=== PATIENT | female | born 1940 | race Caucasian/White ===

== ENCOUNTER 2018-05-11 18:08 | Inpatient (IN) ==
[2018-05-18] MEDS ORDERED: *HR* Dextrose 50 % in Water (Syg) 50 ML SYRINGE IVP PRN (18:44)
[2018-05-18] MEDS ORDERED: D5% in Water 1,000 ML IVC PRN (18:44)
[2018-05-18] MEDS ORDERED: Dextrose Gel 15 GM/37.5 ML TUBE PO PRN ×2 (18:44)
[2018-05-18] MEDS: Insulin LISPRO 300 UNITS/3 ML VIAL SQ SCH (20:52)
[2018-05-18] MEDS: Acetaminophen 325 MG TABLET PO PRN (21:09)
[2018-05-18] MEDS: *HR* Heparin 5,000 UNIT/ML VIAL SQ SCH (21:10)
[2018-05-19 05:53] LABS: Basophils % 0.4 %; Eosinophils # 0.2 K/mcL (0.0-0.6); Eosinophils % 2.9 %; Hematocrit 35.3 % (35.3-44.9); Hemoglobin 11.4 g/dL (11.5-15.4); Immature Granulocytes % 0.4 % (0-4); Lymphocytes # 1.4 K/mcL (0.6-4.6); Lymphocytes % 19.4 %; Mean Corpuscular HGB Conc 32.3 g/dL (31.6-35.5); Mean Corpuscular Volume 95.9 fL (83.0-100.0); Mean Platelet Volume 9.3 fL (9.4-12.4); Monocytes # 0.6 K/mcL (0.0-1.3); Monocytes % 8.7 %; Neutrophils # 4.8 K/mcL (1.6-8.9); Platelet Count 356 K/mcL (140-400); Red Blood Count 3.68 M/mcL (3.82-4.97); Red Cell Distribution Width 14.8 % (11.5-14.5); Segmented Neutrophils % 68.2 %
[2018-05-19 06:10] LABS: BUN/Creatinine Ratio 17 (6-26); Blood Urea Nitrogen 13 mg/dL (8-23); Calcium 8.9 mg/dL (8.6-10.3); Carbon Dioxide 30 mEq/L (23-29); Chloride 106 mEq/L (98-107); Glucose 130 mg/dL (70-105); Osmolality,Calculated 296 (280-300); Potassium 4.1 mEq/L (3.5-5.1); Sodium 142 mEq/L (136-145); eGFR For Non-African Americans > 60 (> 60)
[2018-05-19] MEDS: Acetaminophen 325 MG TABLET PO PRN ×2 (06:38→23:00)
[2018-05-19] MEDS: *HR* Heparin 5,000 UNIT/ML VIAL SQ SCH ×3 (06:38→21:18)
[2018-05-19] MEDS: Insulin LISPRO 300 UNITS/3 ML VIAL SQ SCH ×4 (08:09→20:24)
[2018-05-19] MEDS: Cholecalciferol (D-3) 1,000 UNIT TABLET PO SCH (08:12)
[2018-05-19] MEDS: FLUoxetine 20 MG CAPSULE PO SCH (08:12)
[2018-05-19] MEDS: Multivit/Ca/Min/Fe/FA 1 TAB TABLET PO SCH (08:12)
[2018-05-19] MEDS: Diltiazem CD (24hr) 180 MG CAPSULE PO SCH (08:12)
[2018-05-19] MEDS: Aspirin Enteric Coated 325 MG Tablet PO SCH (08:12)
[2018-05-19] MEDS: Leptospermum Honey Gel 44 ML TUBE TP SCH (08:13)
[2018-05-19] MEDS: Nitrofurantoin (BID) 100 MG CAPSULE PO SCH (17:07)
[2018-05-19 17:54] LABS: Bilirubin,Urine Negative (Negative); Blood,Urine Negative (Negative); Clarity,Urine Clear (Clear); Color,Urine Yellow (Yellow); Glucose,Urine (UA) Normal (Normal); Ketones,Urine Negative (Negative); Leukocyte Esterase,Urine Negative (Negative); Nitrite,Urine Negative (Negative); PH,Urine 6.5 pH Units (5.0-8.0); Protein,Urine Negative (Neg-Trace); Specific Gravity,Urine 1.015 (1.010-1.025); Urobilinogen,Urine Normal (Normal)
[2018-05-19] MEDS: Ascorbic Acid 500 MG TABLET PO SCH (20:23)
[2018-05-19] MEDS: Lactobacillus 1 EACH CAP.SPRINK PO SCH (20:24)
[2018-05-20] MEDS: *HR* Heparin 5,000 UNIT/ML VIAL SQ SCH ×3 (05:41→22:00)
[2018-05-20] MEDS: Leptospermum Honey Gel 44 ML TUBE TP SCH (05:41)
[2018-05-20] MEDS: FLUoxetine 20 MG CAPSULE PO SCH (07:44)
[2018-05-20] MEDS: Cholecalciferol (D-3) 1,000 UNIT TABLET PO SCH (07:44)
[2018-05-20] MEDS: Diltiazem CD (24hr) 180 MG CAPSULE PO SCH (07:44)
[2018-05-20] MEDS: Insulin LISPRO 300 UNITS/3 ML VIAL SQ SCH ×4 (07:44→20:25)
[2018-05-20] MEDS: Lactobacillus 1 EACH CAP.SPRINK PO SCH ×2 (07:44→20:04)
[2018-05-20] MEDS: Ascorbic Acid 500 MG TABLET PO SCH ×2 (07:45→20:05)
[2018-05-20] MEDS: Aspirin Enteric Coated 325 MG Tablet PO SCH (07:45)
[2018-05-20] MEDS: Multivit/Ca/Min/Fe/FA 1 TAB TABLET PO SCH (07:45)
[2018-05-20] MEDS: Nitrofurantoin (BID) 100 MG CAPSULE PO SCH ×2 (07:45→17:18)
--- NOTE | 2018-05-20 13:55 | Internal Med History&Physical ---
Date of Encounter: 05/20/18 Time of Encounter: 12:15 Assessment and Plan (1) Cerebrovascular accident (CVA) Current visit: Yes Status: Acute Patient underwent treatment at [facility] including TPA She is scheduled to restart her Xarelto in a few days She is deconditioned and needs rehabilitation for evaluation is pending Had previous noncompliance with Xarelto due to depression, depression is currently being treated. Qualifiers: CVA mechanism: embolism Laterality of affected vessel: right Qualified Code(s): I63.411 - Cerebral infarction due to embolism of right middle cerebral artery (2) Atrial fibrillation Current visit: Yes Status: Chronic Patient has had atrial fibrillation for several years. She is currently rate controlled and stable. She is managed with calcium channel mariella. An chronic anticoagulation Qualifiers: Atrial fibrillation type: chronic Qualified Code(s): I48.2 - Chronic atrial fibrillation (3) Depressed Current visit: Yes Status: Acute Patient is currently stable with her depression she was started on treatment [facility] she denies problems with these medications. She states she still feels apathetic but denies suicidal ideation or thoughts of harm to self or others. She is agreeable to taking her routine medications and participating in therapy. Qualifiers: Depression Type: major depressive disorder Major depression recurrence: unspecified whether recurrent Active/Remission status: currently active Major depression episode severity: unspecified Qualified Code(s): F32.9 - Major depressive disorder, single episode, unspecified Internal Medicine - H&P: HPI Admitted From: Intrahospital Transfer History of present illness: Ms. Guerra is a 77 year old female who transferred here for rehabilitation after deconditioning. She comes from [facility]. She was treated at [facility] for acute right-sided CVA, she reports she had complex treatment. Her states she had TPA and thrombus removal. She ultimately had some improvement but has residual left-sided weakness and minor speech impairment, general fatigue and weakness, and vertigo. She has a long history of atrial fibrillation and hypertension, she reports that this was diagnosed about 7 years ago after a knee surgery. She states that she has been on XARELTO since her diagnosis. Her and family report that she stopped taking it prior to the CVA perhaps for a week or 2 maybe longer. They state this was due to her being depressed and stating she would not take any of her medications. She denies that she had suicidal ideation. She denied problems with xarelto or problems obtaining medication. She has supportive . While at [facility] she also suffered a left ankle fracture which was repaired with hardware. She states this is feeling okay and denies significant pain from the area. She has a history of remote right-sided breast cancer with remote right mastectomy. Exam General she is older than stated age fair eye contact fatigued hypokinetic HEENT dry oral mucosa no lesions noted Neck supple no bruit Heart irregular no definite murmur Lungs clear bilaterally Abdomen full soft nontender bowel sounds present Extremities left ankle incision intact no drainage no significant edema bilat erally Neurologic left-sided weakness Past Med Surg Social Fam HX - Past Medical History Medical history: atrial fibrillation, cancer, diabetes, other Additional medical history: breast ca Psychiatric history: anxiety, depression - Past Surgical History Additional surgical history: shoulder replacement, hyst, left knee, right leg plate, ORIF left ankle, cataract surgery - Social History Smoking Status: Never smoker Smokeless Tobacco Status: No Alcohol use: none Drug use: none - Family History Father Living Status: Hx Family Cancer: Yes Mother Living Status: Hx Family Cardiac Disorders: Yes Internal Medicine - H&P: Meds Atorvastatin [Lipitor] 80 mg PO HS 04/05/15 [History] Diltiazem HCl [Diltiazem 24Hr Cd] 360 mg PO DAILY 04/05/15 [History] FLUoxetine HCl [PROzac] 40 mg PO DAILY 04/05/15 [History] Rivaroxaban [Xarelto] 20 mg PO DAILY 04/05/15 [History] Vit C/E/Zn/Coppr/Lutein/Zeaxan [Preservision Areds 2 Softgel] 1 cap PO DAILY 05/18/18 [History] Allergy/AdvReac Type Severity Reaction Status Date / Time metformin AdvReac Gastrointestinal Verified 05/18/18 19:23 Upset oxycodone [From Percocet] AdvReac Nausea Verified 10/06/14 10:03 All Systems PM: A 10-system review of systems was performed and is negative for pertinent findings except as documented above in the HPI. - Constitutional Vitals: Temp Pulse Resp BP Pulse Ox 98.5 F 86 16 120/60 95 05/20/18 09:00 05/20/18 09:00 05/20/18 09:00 05/20/18 09:00 05/20/18 09:00 Internal Med - H&P Results - Labs CBC & Chem 7: 05/19/18 05:20 05/19/18 05:20 Labs: Urine 05/19/18 Range/Units 17:45 Urine Color Yellow (Yellow) Urine Clarity Clear (Clear) Urine pH 6.5 (5.0-8.0) pH Units Ur Specific [place] 1.015 (1.010-1.025) Urine Protein Negative (Neg-Trace) mg/dL Urine Glucose (UA) Normal (Normal) mg/dL
--- NOTE | 2018-05-20 14:07 | Internal Med Progress Note ---
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 artery (2) Atrial fibrillation Current Visit: Yes Status: Chronic Qualifiers: Atrial fibrillation type: chronic Qualified Code(s): I48.2 - Chronic atrial fibrillation (3) Depressed Current Visit: Yes Status: Acute Qualifiers: Depression Type: major depressive disorder Major depression recurrence: unspecified whether recurrent Active/Remission status: currently active Major depression episode severity: unspecified Qualified Code(s): F32.9 - Ma rosamaria depressive disorder, single episode, unspecified - Subjective Interval history: Assessment and Plan (1) Cerebrovascular accident (CVA) Current visit: Yes Status: Acute Patient underwent treatment at [facility] including TPA She is scheduled to restart her Xarelto in a few days She is deconditioned and needs rehabilitation for evaluation is pending Had previous noncompliance with Xarelto due to depression, depression is currently being treated. Recent left ankle fracture . Qualifiers: CVA mechanism: embolism Laterality of affected vessel: right Qualified Code(s): I63.411 - Cerebral infarction due to embolism of right middle cerebral artery (2) Atrial fibrillation Current visit: Yes Status: Chronic Patient has had atrial fibrillation for several years. Diagnosed after routine knee surgery. She is currently rate controlled and stable. She is managed with calcium channel mariella. An chronic anticoagulation Qualifiers: Atrial fibrillation type: chronic Qualified Code(s): I48.2 - Chronic atrial fibrillation (3) Depressed Current visit: Yes Status: Acute Patient is currently stable with her depression she was started on treatment [facility] she denies problems with these medications. She states she still feels apathetic but denies suicidal ideation or thoughts of harm to self or others. She is agreeable to taking her routine medications and participating in therapy. Qualifiers: Depression Type: major depressive disorder Major depression recurrence: unspecified whether recurrent Active/Remission status: currently active Major depression episode severity: unspecified Qualified Code(s): F32.9 - Major depressive disorder, single episode, unspecified Interval HX Ms. Guerra is a 77 year old female who transferred here for rehabilitation after deconditioning. She comes from [facility]. She was treated at [facility] for acute right-sided CVA, she reports she had complex treatment. Her states she had TPA and thrombus removal. She ultimately had some improvement but has residual left-sided weakness and minor speech impairment, general fatigue and weakness, and vertigo. She has a long history of atrial fibrillation and hypertension, she reports that this was diagnosed about 7 years ago after a knee surgery. She states that she has been on XARELTO since her diagnosis. Her and family report that she stopped taking it prior to the CVA perhaps for a week or 2 maybe longer. They state this was due to her being depressed and stating she would not take any of her medications. She denies that she had suicidal ideation. She denied problems with xarelto or problems obtaining medication. She has supportive . While at [facility] she also suffered a left ankle fracture which was repaired with hardware. She states this is feeling okay and denies significant pain from the area. She has a history of remote right-sided breast cancer with remote right mastectomy. Today she is in improved mood. She complains of fatigue but eating more. She had a UTI and will finish antbx in 2 days. Denies abd pain. Exam General she is older than stated age fair eye contact fatigued HEENT dry oral mucosa no lesions noted Neck supple no bruit Heart irregular no definite murmur Lungs clear bilaterally Abdomen full soft nontender bowel sounds present Extremities left ankle incision intact no drainage no significant edema bilaterally Neurologic left-sided weakness - Constitutional Vitals: Temp Pulse Resp BP Pulse Ox 98.5 F 86 16 120/60 95 05/20/18 09:00 05/20/18 09:00 05/20/18 09:00 05/20/18 09:00 05/20/18 09:00 Internal Medicine: Result - Labs CBC & Chem 7: 05/19/18 05:20 05/19/18 05:20 Labs: Urine 05/19/18 Range/Units 17:45 Urine Color Yellow (Yellow) Urine Clarity Clear (Clear) Urine pH 6.5 (5.0-8.0) pH Units Ur Specific [place] 1.015 (1.010-1.025) Urine Protein Negative (Neg-Trace) mg/dL Urine Glucose (UA) Normal (Normal) mg/dL Consult Discharge Plan - Plan Referrals: Carmelo Boudreaux MD [Primary Care Provider] -
[2018-05-20] MEDS: Acetaminophen 325 MG TABLET PO PRN (20:04)
[2018-05-21] MEDS: *HR* Heparin 5,000 UNIT/ML VIAL SQ SCH (05:53)
[2018-05-21 06:59] LABS: Basophils % 0.4 %; Eosinophils # 0.2 K/mcL (0.0-0.6); Eosinophils % 2.6 %; Hematocrit 35.2 % (35.3-44.9); Hemoglobin 11.6 g/dL (11.5-15.4); Immature Granulocytes % 0.4 % (0-4); Lymphocytes # 1.6 K/mcL (0.6-4.6); Lymphocytes % 23.1 %; Mean Corpuscular Volume 94.1 fL (83.0-100.0); Monocytes # 0.6 K/mcL (0.0-1.3); Monocytes % 8.4 %; Neutrophils # 4.5 K/mcL (1.6-8.9); Platelet Count 389 K/mcL (140-400); Red Blood Count 3.74 M/mcL (3.82-4.97); Red Cell Distribution Width 14.8 % (11.5-14.5); Segmented Neutrophils % 65.1 %
[2018-05-21 07:06] LABS: INR 1.2; Prothrombin Time 13.7 Seconds (9.4-12.1)
[2018-05-21 07:12] LABS: BUN/Creatinine Ratio 14 (6-26); Blood Urea Nitrogen 10 mg/dL (8-23); Calcium 8.8 mg/dL (8.6-10.3); Carbon Dioxide 27 mEq/L (23-29); Chloride 104 mEq/L (98-107); Glucose 129 mg/dL (70-105); Osmolality,Calculated 291 (280-300); Potassium 3.7 mEq/L (3.5-5.1); Sodium 140 mEq/L (136-145); eGFR For Non-African Americans > 60 (> 60)
[2018-05-21] MEDS: Acetaminophen 325 MG TABLET PO PRN ×2 (08:19→18:14)
[2018-05-21] MEDS: Aspirin Enteric Coated 325 MG Tablet PO SCH (08:19)
[2018-05-21] MEDS: Ascorbic Acid 500 MG TABLET PO SCH ×2 (08:19→21:34)
[2018-05-21] MEDS: FLUoxetine 20 MG CAPSULE PO SCH (08:20)
[2018-05-21] MEDS: Nitrofurantoin (BID) 100 MG CAPSULE PO SCH ×2 (08:20→18:15)
[2018-05-21] MEDS: Cholecalciferol (D-3) 1,000 UNIT TABLET PO SCH (08:20)
[2018-05-21] MEDS: Multivit/Ca/Min/Fe/FA 1 TAB TABLET PO SCH (08:20)
[2018-05-21] MEDS: Lactobacillus 1 EACH CAP.SPRINK PO SCH ×2 (08:21→21:34)
[2018-05-21] MEDS: Diltiazem CD (24hr) 180 MG CAPSULE PO SCH (08:21)
[2018-05-21] MEDS: Insulin LISPRO 300 UNITS/3 ML VIAL SQ SCH ×4 (08:21→21:35)
[2018-05-21] MEDS: Leptospermum Honey Gel 44 ML TUBE TP SCH (08:21)
--- NOTE | 2018-05-21 11:42 | Internal Med Progress Note ---
Addendum entered and electronically signed by Paulino Ybarra MD 05/21/18 11:56: I have personally performed a face to face evaluation on this patient. I have r eviewed and agree with the care plan. History and Exam by me shows: Patient is without complaint. She asks how soon she can go home. I informed her that we would have multidisciplinary meeting around noon today. I also told her that the stroke recovery is complicated by her ankle fracture. She denies problems. She knows that she is to restart Xarelto today. She denies other problems. House and bladder are functioning well. 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 Discussed care with other providers and/or nursing. Patient has no complaint of chest discomfort, dyspnea, orthopnea, palpitations, nausea or vomiting, constipation or diarrhea, other changes in bowel habits, difficulty with urination, rash or itching, or other new complaints, except as mentioned above. Review of systems is otherwise negative. Examination: (Except as mentioned above): General: In no apparent distress. Alert and oriented 3. Nondiaphoretic. Head: Atraumatic and normocephalic. Respiratory: No use of accessory muscles. Lungs are clear throughout. Normal airflow. Cardiovascular: Irregularly irregular consistent with atrial fibrillation, without murmur appreciated. Abdomen: Bowel sounds are normal. No hepatosplenomegaly mass or tenderness appreciated. Obese and therefore difficult to palpate deeply. Extremities: No cyanosis clubbing or edema. Left ankle is in brace and not undressed but there is no cord or calf tenderness. Skin: Warm and non-diaphoretic with no new lesions noted. Original Note: Date of Encounter: 05/21/18 Time of Encounter: 11:40 - Assessment and plan (1) Cerebrovascular accident (CVA) Current Visit: Yes Status: Acute Assessment and plan: Patient was recent history of a right ischemic CVA with left hemiparesis. Patient's muscle strength left extremities show mild weakness with left extremities 4+/5 and right extremities have 5/5. Patient noted to have slight slurred speech no issues with dysphagia. Patient to continue with physical therapy and mobilize. Vital signs stable. We will continue with current medications, to include heparin. 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 Surgical incision currently is covered with a Tigre wrap which is dry and intact. No edema noted. Distal CV checks normal. Left leg walking boot with patient able to have TDWB. Pain is been normal with patient stating current medications have been effective. We will continue with current therapy Qualifiers: Encounter type: subsequent encounter Fracture healing: with routine healing Qualified Code(s): S82.892D - Other fracture of left lower leg, subsequent encounter for closed fracture with routine healing (3) Atrial fibrillation Current Visit: Yes Status: Chronic Assessment and plan: No acute issues during her stay here. Heart rate remains irregular with ventricular rate controlled less than 100. Vital signs are stable. Patient denies any palpitations or chest discomforts. We will continue on current medications Qualifiers: Atrial fibrillation type: chronic Qualified Code(s): I48.2 - Chronic atrial fibrillation (4) Diabetes Current Visit: Yes Status: Acute Assessment and plan: No acute issues. Patient's glucose has been fairly well-controlled with most readings less than 170. We will continue with sliding scale coverage continue to monitor Qualifiers: Diabetes mellitus type: type 2 Diabetes mellitus exterminator termite insulin use: without exterminator termite use Diabetes mellitus complication status: with unspecified complications Qualified Code(s): E11.8 - Type 2 diabetes mellitus with unspecified complications - Time Spent With Patient less than 15 minutes - Subjective Interval history: Patient appears relaxed and currently denies any discomforts or shortness of breath. Agents states she has not had any pain to her left ankle surgical site. Patient continues with left hemiparesis and states that she feels her strength has improved since her initial incident Patient's daughter is at bedside states the patient had some delay to her recovery due to elevated heart rate. Patient currently denies any chest discomforts or palpitations. - Constitutional Vitals: Temp Pulse Resp BP Pulse Ox 98.0 F 93 16 116/82 92 05/21/18 07:26 05/21/18 07:26 05/21/18 07:26 05/21/18 07:26 05/21/18 07:26 General appearance: Present: A&O X 3, pleasant - Head Head exam: Present: atraumatic, normocephalic Additional comments: Patient noted to have a very slight slur to her speech - Eye Eye exam: Present: PERRL, conjuntiva pink, sclera anicteric Pupils: Present: PERRL - Neck Neck exam general surgery: Present: supple, trachea midline. Absent: lymphadenopathy - Respiratory Respiratory exam: Present: CTAB. Absent: accessory muscle use, rales, rhonchi, wheezes - Cardiovascular Cardiovascular exam: Present: irregular rhythm, RRR, +S1, +S2. Absent: diastolic murmur, gallop, rubs, systolic murmur Additional comments: Heart rate remains irregular with controlled rate less than 100 bpm - GI/Abdominal GI/Abdominal exam: Present: normal bowel sounds, soft, no peritoneal signs. Absent: distended, tenderness - Extremities Exam Extremities exam: Present: warm, radial pulses palpable and symmetrical. Absent: calf tenderness, cyanotic, pedal edema Additional comments: Left ankle with Tigre wrap dressing in place 2 surgical site. No edema noted. Left ankle also and a walking boot and currently is elevated while in bed - Neurological Exam Neurological exam: Present: CN II-XII intact, oriented X3, speech deficit. Absent: pronater drift, facial droop Additional comments: Patient with slight slurred speech but denies any difficulty with swallow. Tongue remains midline with no facial droop. Left hemiparesis with left extremities 4+/5 and right extremities at 5/5. - Skin Skin exam: Present: dry, intact Internal Medicine: Result - Labs CBC & Chem 7: 05/21/18 06:35 05/21/18 06:35 Labs: Short CBC 05/21/18 Range/Units 06:35 WBC 6.9 (4.3-11.1) K/mcL Hgb 11.6 (11.5-15.4) g/dL Hct 35.2 L (35.3-44.9) % Plt Count 389 (140-400) K/mcL Neutrophils # 4.5 (1.6-8.9) K/mcL BMP 05/21/18 06:35 Sodium 140 Potassium 3.7 Chloride 104 Carbon Dioxide 27 BUN 10 Creatinine 0.69 Glucose 129 H Calcium 8.8 - ABG Interpretation ABG results: PT/INR, D-dimer PT 13.7 Seconds (9.4-12.1) H 05/21/18 06:35 Consult Discharge Plan - Plan Referrals: Carmelo Boudreaux MD [Primary Care Provider] -
[2018-05-21] MEDS: *HR* Rivaroxaban 10 MG TABLET PO SCH (18:15)
[2018-05-22] MEDS: Insulin LISPRO 300 UNITS/3 ML VIAL SQ SCH ×3 (07:27→17:05)
[2018-05-22] MEDS: Cholecalciferol (D-3) 1,000 UNIT TABLET PO SCH (07:43)
[2018-05-22] MEDS: FLUoxetine 20 MG CAPSULE PO SCH (07:44)
[2018-05-22] MEDS: Diltiazem CD (24hr) 180 MG CAPSULE PO SCH (07:44)
[2018-05-22] MEDS: Lactobacillus 1 EACH CAP.SPRINK PO SCH ×2 (07:44→19:41)
[2018-05-22] MEDS: Multivit/Ca/Min/Fe/FA 1 TAB TABLET PO SCH (07:44)
[2018-05-22] MEDS: Leptospermum Honey Gel 44 ML TUBE TP SCH (07:44)
[2018-05-22] MEDS: Ascorbic Acid 500 MG TABLET PO SCH ×2 (07:44→19:43)
[2018-05-22] MEDS: Aspirin Enteric Coated 325 MG Tablet PO SCH (07:44)
--- NOTE | 2018-05-22 11:57 | Internal Med Progress Note ---
Addendum entered and electronically signed by Paulino Ybarra MD 05/22/18 12:37: I have personally performed a face to face evaluation on this patient. I have r eviewed and agree with the care plan. History and Exam by me shows: Patient is concerned about left knee swelling. However, she has no swelling of lower extremity, increase in pain, etc. The exception to this is and her boot was slightly tight last night across the metatarsals but this is typical because of her high arch. She denies other problems or complaints. Discussed care with other providers and/or nursing. Patient has no complaint of chest discomfort, dyspnea, orthopnea, palpitations, nausea or vomiting, constipation or diarrhea, other changes in bowel habits, difficulty with urination, rash or itching, or other new complaints, except as mentioned above. Review of systems is otherwise negative. Examination: (Except as mentioned above): General: In no apparent distress. Alert and oriented 3. Nondiaphoretic. Head: Atraumatic and normocephalic. Respiratory: No use of accessory muscles. Lungs are clear throughout. Normal airflow. Cardiovascular: Irregularly irregular consistent with atrial fibrillation, without murmur appreciated. Abdomen: Bowel sounds are normal. No hepatosplenomegaly mass or tenderness appreciated. Obese and therefore difficult to palpate deeply. Extremities: No cyanosis clubbing or edema, with the exception of slightly increased swelling around the left knee. There is no cord or calf tenderness. The patient has no posterior swelling, to exam. She does have a history of surgical repair of a Adam's cyst at the left knee, remotely.. Skin: Warm and non-diaphoretic with no new lesions noted. We will keep the leg elevated and apply ice. She is already on anticoagulation. She continues to improve. We have asked that she be seen by psychology, tomorrow. She is proceeding well with therapies. Original Note: Date of Encounter: 05/22/18 Time of Encounter: 11:55 - Assessment and plan (1) Cerebrovascular accident (CVA) Current Visit: Yes Status: Acute Assessment and plan: No new neurological deficits. Continue PT and OT. Will follow progress. Follow up with neurologist as scheduled. 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 Pain controlled. Weight bearing as tolerated. Follow up with surgeon as scheduled. Qualifiers: Encounter type: subsequent encounter Fracture healing: with routine healing Qualified Code(s): S82.892D - Other fracture of left lower leg, subsequent encounter for closed fracture with routine healing (3) Diabetes Current Visit: Yes Status: Acute Assessment and plan: Controlled. Monitor fingerstick blood sugars. Will adjust coverage was sliding scale. Qualifiers: Diabetes mellitus type: type 2 Diabetes mellitus terminal operator insulin use: without correction use Diabetes mellitus complication status: with unspecified complications Qualified Code(s): E11.8 - Type 2 diabetes mellitus with unspec ified complications (4) Atrial fibrillation Current Visit: Yes Status: Chronic Assessment and plan: Rate and rhythm controlled. Continues xarelto. Qualifiers: Atrial fibrillation type: chronic Qualified Code(s): I48.2 - Chronic atrial fibrillation - Time Spent With Patient less than 15 minutes - Subjective Interval history: participating well with therapy. denies new neurological deficits, nausea, vomitting or diarrhea. last BM with am. denies fever, chill, SOB or chest pain. daughter at bedside. ambulated with walker with therapy. walking boot on left. left knee slightly swollen, no pain. - Constitutional Vitals: Temp Pulse Resp BP Pulse Ox 97.6 F 108 16 110/69 93 05/22/18 07:27 05/22/18 07:27 05/22/18 07:27 05/22/18 07:27 05/22/18 07:27 General appearance: Present: cooperative, A&O X 3, pleasant, no acute distress, answers questions appropriately - Head Head exam: Present: atraumatic, normocephalic - Eye Eye exam: Present: PERRL, conjuntiva pink, sclera anicteric Pupils: Present: PERRL - Neck Neck exam general surgery: Present: supple, trachea midline. Absent: lymphadenopathy - Respiratory Respiratory exam: Present: CTAB. Absent: accessory muscle use, rales, rhonchi, wheezes - Cardiovascular Cardiovascular exam: Present: RRR, +S1, +S2. Absent: diastolic murmur, gallop, rubs, systolic murmur - GI/Abdominal GI/Abdominal exam: Present: normal bowel sounds, soft, no peritoneal signs. Absent: distended, tenderness - Extremities Exam Extremities exam: Present: warm, radial pulses palpable and symmetrical. Absent: calf tenderness, cyanotic, pedal edema Additional comments: left knee slight edema, no pain with palpation. left ankle in walking boot. left upper and lower extremity strength 4/5. - Neurological Exam Neurological exam: Present: CN II-XII intact, oriented X3, no focal deficits. Absent: pronater drift, facial droop, speech deficit - Skin Skin exam: Present: dry, intact Internal Medicine: Result - Labs CBC & Chem 7: 05/21/18 06:35 05/21/18 06:35 - ABG Interpretation ABG results: PT/INR, D-dimer PT 13.7 Seconds (9.4-12.1) H 05/21/18 06:35 Consult Discharge Plan - Plan Referrals: Carmelo Boudreaux MD [Primary Care Provider] -
[2018-05-22] MEDS: *HR* Rivaroxaban 10 MG TABLET PO SCH (17:07)
[2018-05-23] MEDS: Insulin LISPRO 300 UNITS/3 ML VIAL SQ SCH ×5 (00:02→21:01)
[2018-05-23] MEDS: Multivit/Ca/Min/Fe/FA 1 TAB TABLET PO SCH (08:08)
[2018-05-23] MEDS: Diltiazem CD (24hr) 180 MG CAPSULE PO SCH (08:08)
[2018-05-23] MEDS: Lactobacillus 1 EACH CAP.SPRINK PO SCH ×2 (08:08→20:46)
[2018-05-23] MEDS: FLUoxetine 20 MG CAPSULE PO SCH (08:08)
[2018-05-23] MEDS: Ascorbic Acid 500 MG TABLET PO SCH ×2 (08:08→20:47)
[2018-05-23] MEDS: Aspirin Enteric Coated 325 MG Tablet PO SCH (08:09)
[2018-05-23] MEDS: Cholecalciferol (D-3) 1,000 UNIT TABLET PO SCH (08:09)
--- NOTE | 2018-05-23 10:38 | Internal Med Progress Note ---
Addendum entered and electronically signed by Paulino Ybarra MD 05/23/18 11:03: I have personally performed a face to face evaluation on this patient. I have r eviewed and agree with the care plan. History and Exam by me shows: Patient is without complaint. She is tired after therapy sessions but otherwise doing well. She still has knee swelling but no different than yesterday and no knee or foot pain of significance. Discussed care with other providers and/or nursing. Patient has no complaint of chest discomfort, dyspnea, orthopnea, palpitations, nausea or vomiting, constipation or diarrhea, other changes in bowel habits, difficulty with urination, rash or itching, or other new complaints, except as mentioned above. Review of systems is otherwise negative. Examination: (Except as mentioned above): General: In no apparent distress. Alert and oriented 3. Nondiaphoretic. Head: Atraumatic and normocephalic. Respiratory: No use of accessory muscles. Lungs are clear throughout. Normal airflow. Cardiovascular: Regular rate and rhythm without murmur appreciated. Abdomen: Bowel sounds are normal. No hepatosplenomegaly mass or tenderness appreciated. Obese and therefore difficult to palpate deeply. Patient is examined upright in chair and this also limits exam. Extremities: No cyanosis clubbing or edema. Skin: Warm and non-diaphoretic with no new lesions noted. Nursing asks about her seeing psychology and I agreed that this is a good idea. I thought it was already arranged. Original Note: Date of Encounter: 05/23/18 Time of Encounter: 10:36 - Assessment and plan (1) Cerebrovascular accident (CVA) Current Visit: Yes Status: Acute Assessment and plan: No new neurological deficits. Continue PT and OT. Will follow progress. Follow up with neurologist as scheduled. 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 Pain controlled. Weight bearing as tolerated. Follow up with surgeon as scheduled. Qualifiers: Encounter type: subsequent encounter Fracture healing: with routine healing Qualified Code(s): S82.892D - Other fracture of left lower leg, subsequent encounter for closed fracture with routine healing (3) Diabetes Current Visit: Yes Status: Acute Assessment and plan: Controlled. Monitor fingerstick blood sugars. Will adjust coverage was sliding scale. Qualifiers: Diabetes mellitus type: type 2 Diabetes mellitus management expert insulin use: without senior living use Diabetes mellitus complication status: with unspecified complications Qualified Code(s): E11.8 - Type 2 diabetes mellitus with unspecified complications (4) Atrial fibrillation Current Visit: Yes Status: Chronic Assessment and plan: Rate and rhythm controlled. Continues xarelto. Qualifiers: Atrial fibrillation type: chronic Qualified Code(s): I48.2 - Chronic atrial fibrillation - Time Spent With Patient 25 - 35 minutes - Subjective Interval history: participating well with therapy. denies new neurological deficits, nausea, vomitting or diarrhea. last BM this am. denies fever, chill, SOB or chest pain. daughter at bedside. ambulated with walker with therapy. walking boot on left. left knee continues to be slightly swollen, no pain. states she had a spasm in her left calf last night. - Constitutional Vitals: Temp Pulse Resp BP Pulse Ox 97.9 F 65 16 134/84 97 05/23/18 07:23 05/23/18 07:23 05/23/18 07:23 05/23/18 07:23 05/23/18 07:23 General appearance: Present: cooperative, A&O X 3, pleasant, no acute distress, answers questions appropriately - Head Head exam: Present: atraumatic, normocephalic - Eye Eye exam: Present: PERRL, conjuntiva pink, sclera anicteric Pupils: Present: PERRL - Neck Neck exam general surgery: Present: supple, trachea midline. Absent: lymphadeno rachel - Respiratory Respiratory exam: Present: CTAB. Absent: accessory muscle use, rales, rhonchi, wheezes - Cardiovascular Cardiovascular exam: Present: RRR, +S1, +S2. Absent: diastolic murmur, gallop, rubs, systolic murmur - GI/Abdominal GI/Abdominal exam: Present: normal bowel sounds, soft, no peritoneal signs. Absent: distended, tenderness - Extremities Exam Extremities exam: Present: warm, radial pulses palpable and symmetrical. Ab sent: calf tenderness, cyanotic, pedal edema Additional comments: LUE and LLE, strength 4/5 - Neurological Exam Neurological exam: Present: CN II-XII intact, oriented X3, no focal deficits. Absent: pronater drift, facial droop, speech deficit - Skin Skin exam: Present: dry, intact Internal Medicine: Result - Labs CBC & Chem 7: 05/21/18 06:35 05/21/18 06:35 - ABG Interpretation ABG results: PT/INR, D-dimer PT 13.7 Seconds (9.4-12.1) H 05/21/18 06:35 Consult Discharge Plan - Plan Referrals: Carmelo Boudreaux MD [Primary Care Provider] -
[2018-05-23] MEDS: Leptospermum Honey Gel 44 ML TUBE TP SCH (18:40)
[2018-05-23] MEDS: *HR* Rivaroxaban 10 MG TABLET PO SCH (18:40)
[2018-05-24] MEDS: Acetaminophen 325 MG TABLET PO PRN ×2 (01:10→21:27)
[2018-05-24] MEDS: Cholecalciferol (D-3) 1,000 UNIT TABLET PO SCH (07:59)
[2018-05-24] MEDS: Aspirin Enteric Coated 325 MG Tablet PO SCH (07:59)
[2018-05-24] MEDS: Diltiazem CD (24hr) 180 MG CAPSULE PO SCH (07:59)
[2018-05-24] MEDS: Ascorbic Acid 500 MG TABLET PO SCH ×2 (07:59→21:27)
[2018-05-24] MEDS: Multivit/Ca/Min/Fe/FA 1 TAB TABLET PO SCH (08:00)
[2018-05-24] MEDS: Lactobacillus 1 EACH CAP.SPRINK PO SCH ×2 (08:00→21:26)
[2018-05-24] MEDS: FLUoxetine 20 MG CAPSULE PO SCH (08:00)
[2018-05-24] MEDS: Insulin LISPRO 300 UNITS/3 ML VIAL SQ SCH ×4 (08:01→21:27)
--- NOTE | 2018-05-24 09:53 | Internal Med Progress Note ---
Addendum entered and electronically signed by Paulino Ybarra MD 05/24/18 10:56: I have personally performed a face to face evaluation on this patient. I have r eviewed and agree with the care plan. History and Exam by me shows: Patient complains of being tired. Otherwise no issues. Moving bowels well. Tolerating therapy except for fatigue. Edema at left knee has resolved. Discussed care with other providers and/or nursing. Patient has no complaint of chest discomfort, dyspnea, orthopnea, palpitations, nausea or vomiting, constipation or diarrhea, other changes in bowel habits, difficulty with urination, rash or itching, or other new complaints, except as mentioned above. Review of systems is otherwise negative. Examination: (Except as mentioned above): General: In no apparent distress. Alert and oriented 3. Nondiaphoretic. Head: Atraumatic and normocephalic. Respiratory: No use of accessory muscles. Lungs are clear throughout. Normal airflow. Cardiovascular: Regular rate and rhythm without murmur appreciated. Abdomen: Bowel sounds are normal. No hepatosplenomegaly mass or tenderness appreciated. Obese and therefore difficult to palpate deeply. Patient is examined upright in chair and this also limits exam. Extremities: No cyanosis clubbing or edema. Skin: Warm and non-diaphoretic with no new lesions noted. Original Note: Date of Encounter: 05/24/18 Time of Encounter: 09:50 - Assessment and plan (1) Cerebrovascular accident (CVA) Current Visit: Yes Status: Acute Assessment and plan: Patient was recent history of a right ischemic CVA with left hemiparesis. Patient's muscle strength left extremities show mild weakness with left extremities 4+/5 and right extremities have 5/5. Patient is improved, Patient to continue with physical therapy and mobilize. Vital signs stable. We will continue with current medications, to include heparin. 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 Surgical incision currently is covered with a Tigre wrap which is dry and intact. No edema noted. Distal CV checks normal. Left leg walking boot with patient able to have TDWB. Pain is been normal with patient stating current medications have been effective. We will continue with current therapy. Patient with upcoming appt with ortho later this month Qualifiers: Encounter type: subsequent encounter Fracture healing: with routine healing Qualified Code(s): S82.892D - Other fracture of left lower leg, subsequent encounter for closed fracture with routine healing (3) Atrial fibrillation Current Visit: Yes Status: Chronic Assessment and plan: No acute issues during her stay here. Heart rate remains irregular with ventricular rate controlled less than 100. Vital signs are stable. Patient denies any palpitations or chest discomforts. We will continue on current medications Qualifiers: Atrial fibrillation type: chronic Qualified Code(s): I48.2 - Chronic atrial fibrillation (4) Diabetes Current Visit: Yes Status: Acute Assessment and plan: No acute issues. Patient's glucose has been well-controlled with most readings less than 170. 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 Denies any chest palpitations. She states she has not had any pain to her left ankle surgical site, which remains with TIGRE type dressiing. States that she has been bearing slight weight with toe touching with no issues noted. Patient continues with left hemiparesis and states that she feels her strength has improved since her initial incident - Constitutional Vitals: Temp Pulse Resp BP Pulse Ox 98.6 F 58 16 116/77 93 05/24/18 07:15 05/24/18 07:15 05/24/18 07:15 05/24/18 07:15 05/24/18 07:15 General appearance: Present: cooperative, A&O X 3, pleasant, no acute distress, answers questions appropriately - Head Head exam: Present: atraumatic, normocephalic - Eye Eye exam: Present: PERRL, conjuntiva pink, sclera anicteric Pupils: Present: PERRL - Neck Neck exam general surgery: Present: supple, trachea midline. Absent: lymphadenopathy - Respiratory Respiratory exam: Present: CTAB. Absent: accessory muscle use, rales, rhonchi, wheezes - Cardiovascular Cardiovascular exam: Present: irregular rhythm, RRR, +S1, +S2. Absent: diastolic murmur, gallop, rubs, systolic murmur Additional comments: Vent rate <100 - GI/Abdominal GI/Abdominal exam: Present: normal bowel sounds, soft, no peritoneal signs. Absent: distended, tenderness - Extremities Exam Extremities exam: Present: warm, radial pulses palpable and symmetrical. Absent: calf tenderness, cyanotic, pedal edema - Neurological Exam Neurological exam: Present: CN II-XII intact, oriented X3, no focal deficits. Absent: pronater drift, facial droop, speech deficit Additional comments: Continued slight left hemiparesis with LE 4/5 and RE 5/5. Speech is clear - Skin Skin exam: Present: dry, intact Internal Medicine: Result - Labs CBC & Chem 7: 05/21/18 06:35 05/21/18 06:35 - ABG Interpretation ABG results: PT/INR, D-dimer PT 13.7 Seconds (9.4-12.1) H 05/21/18 06:35 Consult Discharge Plan - Plan Referrals: Carmelo Boudreaux MD [Primary Care Provider] -
[2018-05-24] MEDS: *HR* Rivaroxaban 10 MG TABLET PO SCH (16:54)
[2018-05-24] MEDS: Leptospermum Honey Gel 44 ML TUBE TP SCH (16:55)
[2018-05-25] MEDS: Insulin LISPRO 300 UNITS/3 ML VIAL SQ SCH ×4 (08:03→20:51)
[2018-05-25] MEDS: Multivit/Ca/Min/Fe/FA 1 TAB TABLET PO SCH (08:49)
[2018-05-25] MEDS: Aspirin Enteric Coated 325 MG Tablet PO SCH (08:49)
[2018-05-25] MEDS: Cholecalciferol (D-3) 1,000 UNIT TABLET PO SCH (08:49)
[2018-05-25] MEDS: Diltiazem CD (24hr) 180 MG CAPSULE PO SCH (08:49)
[2018-05-25] MEDS: FLUoxetine 20 MG CAPSULE PO SCH (08:49)
[2018-05-25] MEDS: Ascorbic Acid 500 MG TABLET PO SCH ×2 (08:49→20:49)
[2018-05-25] MEDS: Lactobacillus 1 EACH CAP.SPRINK PO SCH ×2 (08:50→20:48)
--- NOTE | 2018-05-25 10:54 | Internal Med Progress Note ---
Addendum entered and electronically signed by Paulino Ybarra MD 05/25/18 11:50: Patient is tired after therapy but denies other problems or complications. Speech therapy note is appreciated. 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 She remains on 40 mg daily of Prozac. She is approaching a couple of weeks of treatment with same. Hopefully, her mood will improve. Our clinical psychologist was gone this week so could not evaluate her. Additional medication may be considered. She has minimal pain at her ankle and her knee swelling is markedly improved, per her. Discussed care with other providers and/or nursing. Patient has no complaint of chest discomfort, dyspnea, orthopnea, palpitations, nausea or vomiting, constipation or diarrhea, other changes in bowel habits, difficulty with urination, rash or itching, or other new complaints, except as mentioned above. Review of systems is otherwise negative. Examination: (Except as mentioned above): General: In no apparent distress. Alert and oriented 3. Nondiaphoretic. Head: Atraumatic and normocephalic. Respiratory: No use of accessory muscles. Lungs are clear throughout. Normal airflow. Cardiovascular: Irregularly irregular with rate controlled without murmur appreciated. Abdomen: Bowel sounds are normal. No hepatosplenomegaly mass or tenderness appreciated. Obese and therefore difficult to palpate deeply. Extremities: No cyanosis clubbing or significant change in edema. Skin: Warm and non-diaphoretic with no new lesions noted. Original Note: Date of Encounter: 05/25/18 Time of Encounter: 10:52 - Assessment and plan (1) Cerebrovascular accident (CVA) Current Visit: Yes Status: Acute Assessment and plan: Patient was recent history of a right ischemic CVA with left hemiparesis. Patient's muscle strength left extremities show mild weakness with left extremities 4+/5 and right extremities have 5/5. Patient was reported to have s ome difficulty with swallow during medication passing. Patient denies any issues. Patient being evaluated by speech therapy and will wait for recommendations. Patient to continue with physical therapy and mobilize. Vital signs stable. We will continue with current medications, to include heparin. Qualifiers: CVA mechanism: embolism Precerebral and cerebral artery: middle cerebral artery Laterality of affected vessel: right Qualified Code(s): I63.411 - Cerebral infarction due to embolism of right middle cerebral artery (2) Closed left ankle fracture Current Visit: Yes Status: Acute Assessment and plan: Patient with a left ankle fracture with ORIF that was performed during her [facility] admission for her CVA. Surgical incision currently is covered with a Tigre wrap which is dry and intact. No edema noted. Distal CV checks normal. Left leg walking boot with patient able to have TDWB. Pain is been normal with patient stating current medications have been effective. We will continue with current therapy. Patient with upcoming appt with ortho later this month Qualifiers: Encounter type: subsequent encounter Fracture healing: with routine healing Qualified Code(s): S82.892D - Other fracture of left lower leg, subsequent encounter for closed fracture with routine healing (3) Atrial fibrillation Current Visit: Yes Status: Chronic Assessment and plan: No acute issues during her stay here. Heart rate remains irregular with ventricular rate controlled less than 100. Vital signs are stable. Patient denies any palpitations or chest discomforts. We will continue on current medications Qualifiers: Atrial fibrillation type: chronic Qualified Code(s): I48.2 - Chronic atrial fibrillation (4) Diabetes Current Visit: Yes Status: Acute Assessment and plan: No acute issues. Patient's glucose has been well-controlled with most readings less than 170. We will continue with sliding scale coverage continue to monitor Qualifiers: Diabetes mellitus type: type 2 Diabetes mellitus jail insulin use: without jail use Diabetes mellitus complication status: with unspecified complications Qualified Code(s): E11.8 - Type 2 diabetes mellitus with unspecified complications - Time Spent With Patient less than 15 minutes - Subjective Interval history: Patient appears relaxed and currently denies any discomforts or shortness of breath. Denies any chest palpitations. She states she has not had any pain to her left ankle surgical site, which remains with TIRGE type dressiing. States that she has been bearing slight weight with toe touching with no issues noted. Patient continues with left hemiparesis and states that she feels her strength has improved since her initial incident. Nursing has reported the patient does have some issues with swallow, which was noted during her med passing. Patient denies any current issues. - Constitutional Vitals: Temp Pulse Resp BP Pulse Ox 98.2 F 60 16 114/67 94 05/25/18 08:00 05/25/18 08:00 05/25/18 08:00 05/25/18 08:00 05/25/18 08:00 General appearance: Present: cooperative, A&O X 3, pleasant, no acute distress, answers questions appropriately - Head Head exam: Present: atraumatic, normocephalic - Eye Eye exam: Present: PERRL, conjuntiva pink, sclera anicteric Pupils: Present: PERRL - Neck Neck exam general surgery: Present: supple, trachea midline. Absent: lymph adenopathy - Respiratory Respiratory exam: Present: CTAB. Absent: accessory muscle use, rales, rhonchi, wheezes - Cardiovascular Cardiovascular exam: Present: RRR, +S1, +S2. Absent: diastolic murmur, gallop, rubs, systolic murmur - GI/Abdominal GI/Abdominal exam: Present: normal bowel sounds, soft, no peritoneal signs. Absent: distended, tenderness - Extremities Exam Extremities exam: Present: warm, radial pulses palpable and symmetrical. Absent: calf tenderness, cyanotic, pedal edema - Neurological Exam Neurological exam: Present: CN II-XII intact, oriented X3. Absent: pronater drift, facial droop, speech deficit Additional comments: Patient continues with slight left hemiparesis with left extremities at 4+/5 and right extremities at 5/5. Speech remains clear. Patient is appropriate with conversation and appears oriented - Skin Skin exam: Present: dry, intact Internal Medicine: Result - Labs CBC & Chem 7: 05/21/18 06:35 05/21/18 06:35 - ABG Interpretation ABG results: PT/INR, D-dimer PT 13.7 Seconds (9.4-12.1) H 05/21/18 06:35 Consult Discharge Plan - Plan Referrals: Carmelo Boudreaux MD [Primary Care Provider] -
[2018-05-25] MEDS: Leptospermum Honey Gel 44 ML TUBE TP SCH (19:39)
[2018-05-25] MEDS: *HR* Rivaroxaban 10 MG TABLET PO SCH (20:48)
[2018-05-26] MEDS: Cholecalciferol (D-3) 1,000 UNIT TABLET PO SCH (08:18)
[2018-05-26] MEDS: FLUoxetine 20 MG CAPSULE PO SCH (08:19)
[2018-05-26] MEDS: Lactobacillus 1 EACH CAP.SPRINK PO SCH ×2 (08:19→20:36)
[2018-05-26] MEDS: Acetaminophen 325 MG TABLET PO PRN ×2 (08:19→20:38)
[2018-05-26] MEDS: Multivit/Ca/Min/Fe/FA 1 TAB TABLET PO SCH (08:19)
[2018-05-26] MEDS: Aspirin Enteric Coated 325 MG Tablet PO SCH (08:19)
[2018-05-26] MEDS: Diltiazem CD (24hr) 180 MG CAPSULE PO SCH (08:20)
[2018-05-26] MEDS: Ascorbic Acid 500 MG TABLET PO SCH ×2 (08:20→20:37)
[2018-05-26] MEDS: Insulin LISPRO 300 UNITS/3 ML VIAL SQ SCH ×4 (08:24→21:10)
--- NOTE | 2018-05-26 08:35 | Internal Med Progress Note ---
Date of Encounter: 05/26/18 Time of Encounter: 08:33 - Assessment and plan (1) Closed left ankle fracture Current Visit: Yes Status: Acute Assessment and plan: Foot elevated stable and healing slowly ,Pain is well controlled . 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 EKG to see her heart rate if she is still in A fib as her pulse is regular Qualifiers: Atrial fibrillation type: chronic Qualified Code(s): I48.2 - Chronic atrial fibrillation - Subjective Interval history: Cross coverage , no acute issues at the present time she denies any chest pain SOB slept well , leg raised while in bed no fever or chill pain is well controlled - Constitutional Vitals: Temp Pulse Resp BP Pulse Ox 98.1 F 69 16 115/75 93 05/26/18 07:35 05/26/18 07:35 05/26/18 07:35 05/26/18 07:35 05/26/18 07:35 General appearance: Present: cooperative, A&O X 3, pleasant, no acute distress, answers questions appropriately - Head Head exam: Present: atraumatic - Eye Eye exam: Present: EOMI, PERRL. Absent: scleral icterus, sclera anicteric - Neck Neck exam general surgery: Present: supple. Absent: tenderness, nuchal rigidity - Respiratory Respiratory exam: Present: CTAB. Absent: accessory muscle use, chest wall tende rness, respiratory distress, rhonchi, stridor, wheezes, tachypnea - Cardiovascular Cardiovascular exam: Present: RRR, +S1, +S3, systolic murmur Additional comments: ejection systolic radiates to both side of the next more on 2 ICS right left side - GI/Abdominal GI/Abdominal exam: Present: normal bowel sounds, soft. Absent: diminished bowel sounds, guarding, rebound, rigid - Extremities Exam Extremities exam: Present: radial pulses palpable and symmetrical. Absent: pedal edema, tenderness - Neurological Exam Neurological exam: Present: altered, CN II-XII intact, oriented X3. Absent: facial droop, speech deficit Internal Medicine: Result - Labs CBC & Chem 7: 05/21/18 06:35 05/21/18 06:35 - ABG Interpretation ABG results: PT/INR, D-dimer PT 13.7 Seconds (9.4-12.1) H 05/21/18 06:35 Consult Discharge Plan - Plan Referrals: Carmelo Boudreaux MD [Primary Care Provider] -
[2018-05-26] MEDS: *HR* Rivaroxaban 10 MG TABLET PO SCH (17:43)
[2018-05-26] MEDS: Leptospermum Honey Gel 44 ML TUBE TP SCH (17:59)
[2018-05-27] MEDS: Insulin LISPRO 300 UNITS/3 ML VIAL SQ SCH ×4 (08:07→20:45)
--- NOTE | 2018-05-27 08:26 | Internal Med Progress Note ---
Date of Encounter: 05/27/18 Time of Encounter: 08:24 - Assessment and plan (1) Closed left ankle fracture Current Visit: Yes Status: Acute Assessment and plan: Foot elevated stable and healing slowly ,Pain is well controlled .Overall doing well Qualifiers: Encounter type: subsequent encounter Fracture healing: with routine healing Qualified Code(s): S82.892D - Other fracture of left lower leg, subsequent encounter for closed fracture with routine healing (2) Diabetes Current Visit: Yes Status: Chronic Assessment and plan: DM typle 2 stable blood sugars continue to monitor and adjust meds as needed stable Blood sugars Qualifiers: Diabetes mellitus type: type 2 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: with [facility] use Diabetes mellitus complication status: without complication Qualified Code(s): E11.9 - Type 2 diabetes mellitus without complications; 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 (3) Atrial fibrillation Current Visit: Yes Status: Chronic Assessment and plan: heart rate is stable on oral Anticoagulation stable Qualifiers: Atrial fibrillation type: chronic Qualified Code(s): I48.2 - Chronic atrial fibrillation - Subjective Interval history: Cross coverage , no new issues at the present time no chest pain or palpitation wound is healing well overall feeling better - Constitutional Vitals: Temp Pulse Resp BP Pulse Ox 98.2 F 68 18 138/70 93 05/26/18 20:35 05/26/18 20:35 05/26/18 20:35 05/26/18 20:35 05/26/18 20:35 General appearance: Present: cooperative, A&O X 3, pleasant, no acute distress, answers questions appropriately - Head Head exam: Present: atraumatic - Eye Eye exam: Present: EOMI, PERRL Pupils: Present: PERRL - Neck Neck exam general surgery: Present: supple. Absent: tenderness, nuchal rigidity - Respiratory Respiratory exam: Present: CTAB. Absent: rhonchi, stridor, wheezes, tachypnea - Cardiovascular Cardiovascular exam: Present: irregular rhythm, +S1, +S2, systolic murmur - GI/Abdominal GI/Abdominal exam: Present: normal bowel sounds, soft. Absent: distended, firm, guarding, rebound, rigid - Extremities Exam Extremities exam: Present: full ROM. Absent: pedal edema, tenderness - Incison Incision: Present: clean and dry - Neurological Exam Neurological exam: Present: alert, altered, CN II-XII intact, oriented X3, no focal deficits. Absent: facial droop, speech deficit Internal Medicine: Result - Labs CBC & Chem 7: 05/21/18 06:35 05/21/18 06:35 - ABG Interpretation ABG results: PT/INR, D-dimer PT 13.7 Seconds (9.4-12.1) H 05/21/18 06:35 Consult Discharge Plan - Plan Referrals: Carmelo Boudreaux MD [Primary Care Provider] -
[2018-05-27] MEDS: FLUoxetine 20 MG CAPSULE PO SCH (08:52)
[2018-05-27] MEDS: Multivit/Ca/Min/Fe/FA 1 TAB TABLET PO SCH (08:52)
[2018-05-27] MEDS: Lactobacillus 1 EACH CAP.SPRINK PO SCH ×2 (08:52→20:45)
[2018-05-27] MEDS: Diltiazem CD (24hr) 180 MG CAPSULE PO SCH (08:53)
[2018-05-27] MEDS: Aspirin Enteric Coated 325 MG Tablet PO SCH (08:53)
[2018-05-27] MEDS: Cholecalciferol (D-3) 1,000 UNIT TABLET PO SCH (08:53)
[2018-05-27] MEDS: Ascorbic Acid 500 MG TABLET PO SCH ×2 (08:54→20:45)
[2018-05-27] MEDS: *HR* Rivaroxaban 10 MG TABLET PO SCH (17:46)
[2018-05-27] MEDS: Acetaminophen 325 MG TABLET PO PRN (20:46)
[2018-05-28] MEDS: Leptospermum Honey Gel 44 ML TUBE TP SCH ×2 (07:32→11:23)
[2018-05-28] MEDS: FLUoxetine 20 MG CAPSULE PO SCH (08:20)
[2018-05-28] MEDS: Cholecalciferol (D-3) 1,000 UNIT TABLET PO SCH (08:20)
[2018-05-28] MEDS: Ascorbic Acid 500 MG TABLET PO SCH ×2 (08:20→20:37)
[2018-05-28] MEDS: Diltiazem CD (24hr) 180 MG CAPSULE PO SCH (08:23)
[2018-05-28] MEDS: Aspirin Enteric Coated 325 MG Tablet PO SCH (08:23)
[2018-05-28] MEDS: Multivit/Ca/Min/Fe/FA 1 TAB TABLET PO SCH (08:23)
[2018-05-28] MEDS: Lactobacillus 1 EACH CAP.SPRINK PO SCH ×2 (08:23→20:36)
[2018-05-28] MEDS: Insulin LISPRO 300 UNITS/3 ML VIAL SQ SCH ×4 (08:25→20:37)
[2018-05-28 11:30] LABS: Basophils # 0.1 K/mcL (0.0-0.2); Basophils % 0.8 %; Eosinophils # 0.2 K/mcL (0.0-0.6); Eosinophils % 2.3 %; Hematocrit 40.6 % (35.3-44.9); Hemoglobin 12.8 g/dL (11.5-15.4); Immature Granulocytes % 0.3 % (0-4); Lymphocytes % 13.6 %; Mean Corpuscular HGB Conc 31.5 g/dL (31.6-35.5); Mean Corpuscular Hemoglobin 30.4 pg (28.0-33.3); Mean Corpuscular Volume 96.4 fL (83.0-100.0); Mean Platelet Volume 8.7 fL (9.4-12.4); Monocytes # 0.6 K/mcL (0.0-1.3); Monocytes % 7.7 %; Neutrophils # 5.7 K/mcL (1.6-8.9); Platelet Count 423 K/mcL (140-400); Red Blood Count 4.21 M/mcL (3.82-4.97); Red Cell Distribution Width 14.8 % (11.5-14.5); Segmented Neutrophils % 75.3 %
[2018-05-28 11:48] LABS: Alanine Aminotransferase 29 Units/L (7-52); Albumin 3.9 g/dL (3.5-5.7); Albumin/Globulin Ratio 1.3 (1.1-2.2); Alkaline Phosphatase 105 Units/L (34-104); Aspartate Amino Transferase 26 Units/L (13-39); BUN/Creatinine Ratio 18 (6-26); Bilirubin,Total 0.6 mg/dL (0.3-1.0); Blood Urea Nitrogen 14 mg/dL (8-23); Calcium 9.4 mg/dL (8.6-10.3); Carbon Dioxide 27 mEq/L (23-29); Chloride 106 mEq/L (98-107); Glucose 165 mg/dL (70-105); Magnesium 1.9 mg/dL (1.6-2.6); Osmolality,Calculated 292 (280-300); Potassium 4.1 mEq/L (3.5-5.1); Sodium 139 mEq/L (136-145); Total Protein 6.9 g/dL (6.4-8.9); eGFR For Non-African Americans > 60 (> 60)
--- NOTE | 2018-05-28 12:07 | Internal Med Progress Note ---
Addendum entered and electronically signed by Paulino Ybarra MD 05/28/18 12:51: It should be noted that patient was still in atrial fibrillation to exam, with rate controlled. Addendum entered and electronically signed by Paulino Ybarra MD 05/28/18 12:48: I have personally performed a face to face evaluation on this patient. I have reviewed and agree with the care plan. History and Exam by me shows: Patient seen by me at [id number]. She has no complaints. She has minimal pain. She is pleased that her swelling has diminished from her left knee. She denies other problems. Discussed care with other providers and/or nursing. Patient has no complaint of chest discomfort, dyspnea, orthopnea, palpitations, nausea or vomiting, constipation or diarrhea, other changes in bowel habits, difficulty with urination, rash or itching, or other new complaints, except as mentioned above. Review of systems is otherwise negative. Examination: (Except as mentioned above): General: In no apparent distress. Alert and oriented 3. Nondiaphoretic. Head: Atraumatic and normocephalic. Respiratory: No use of accessory muscles. Lungs are clear throughout. Normal airflow. Cardiovascular: Regular rate and rhythm without murmur appreciated. Abdomen: Bowel sounds are normal. No hepatosplenomegaly mass or tenderness appreciated. Obese and therefore difficult to palpate deeply. Extremities: No cyanosis clubbing or edema. Skin: Warm and non-diaphoretic with no new lesions noted. Therapies note that she still has volitional problems with left upper extremity. She seems to be fatigue have volitional problems, in general. Will obtain vitamin D level and ask psychiatry to see her on Monday. Original Note: Date of Encounter: 05/28/18 Time of Encounter: 12:05 - Assessment and plan (1) Cerebrovascular accident (CVA) Current Visit: Yes Status: Acute Assessment and plan: No new neurological deficits. Continue PT and OT. Will follow progress. Follow up with neurologist as scheduled. 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 Pain controlled. Weight bearing as tolerated. Follow up with surgeon as scheduled. Qualifiers: Encounter type: subsequent encounter Fracture healing: with routine healing Qualified Code(s): S82.892D - Other fracture of left lower leg, subsequent encounter for closed fracture with routine healing (3) Diabetes Current Visit: Yes Status: Acute Assessment and plan: Controlled. Monitor fingerstick blood sugars. Will adjust coverage was sliding scale. Qualifiers: Diabetes mellitus type: type 2 Diabetes mellitus skilled nursing insulin use: without buttermaker continuous churn use Diabetes mellitus complication status: with unspecified complications Qualified Code(s): E11.8 - Type 2 diabetes mellitus with un specified complications (4) Atrial fibrillation Current Visit: Yes Status: Chronic Assessment and plan: Rate and rhythm controlled. Continues xarelto. Qualifiers: Atrial fibrillation type: chronic Qualified Code(s): I48.2 - Chronic atrial fibrillation - Time Spent With Patient less than 15 minutes - Subjective Interval history: participating well with therapy. denies new neurological deficits, nausea, vomitting or diarrhea. last BM this am. denies fever, chill, SOB or chest pain. daughter at bedside. ambulated with walker with therapy. walking boot on left. maintaining appetite and hydration. - Constitutional Vitals: Temp Pulse Resp BP Pulse Ox 97.9 F 62 16 123/78 92 05/28/18 08:25 05/28/18 08:25 05/28/18 08:25 05/28/18 08:25 05/28/18 08:25 General appearance: Present: cooperative, A&O X 3, pleasant, no acute distress, answers questions appropriately - Head Head exam: Present: atraumatic, normocephalic - Eye Eye exam: Present: PERRL, conjuntiva pink, sclera anicteric Pupils: Present: PERRL - Neck Neck exam general surgery: Present: supple, trachea midline. Absent: lymphadenopathy - Respiratory Respiratory exam: Present: CTAB. Absent: accessory muscle use, rales, rhonchi, wheezes - Cardiovascular Cardiovascular exam: Present: RRR, +S1, +S2. Absent: diastolic murmur, gallop, rubs, systolic murmur - GI/Abdominal GI/Abdominal exam: Present: normal bowel sounds, soft, no peritoneal signs. Absent: distended, tenderness - Extremities Exam Extremities exam: Present: warm, radial pulses palpable and symmetrical. Absent: calf tenderness, cyanotic, pedal edema Additional comments: walking boot on left. left sided weakness 4/5 - Neurological Exam Neurological exam: Present: CN II-XII intact, oriented X3, no focal deficits. Absent: pronater drift, facial droop, speech deficit - Skin Skin exam: Present: dry, intact Internal Medicine: Result - Labs CBC & Chem 7: 05/28/18 11:25 05/28/18 11:25 Labs: Short CBC 05/28/18 Range/Units 11:25 WBC 7.5 (4.3-11.1) K/mcL Hgb 12.8 (11.5-15.4) g/dL Hct 40.6 (35.3-44.9) % Plt Count 423 H (140-400) K/mcL Neutrophils # 5.7 (1.6-8.9) K/mcL BMP 05/28/18 11:25 Sodium 139 Potassium 4.1 Chloride 106 Carbon Dioxide 27 BUN 14 Creatinine 0.78 Glucose 165 H Calcium 9.4 Liver Function 05/28/18 Range/Units 11:25 Total Bilirubin 0.6 (0.3-1.0) mg/dL AST 26 (13-39) Units/L ALT 29 (7-52) Units/L Alkaline Phosphatase 105 H (34-104) Units/L Albumin 3.9 (3.5-5.7) g/dL - ABG Interpretation ABG results: PT/INR, D-dimer PT 13.7 Seconds (9.4-12.1) H 05/21/18 06:35 Consult Discharge Plan - Plan Referrals: Carmelo Boudreaux MD [Primary Care Provider] -
[2018-05-28] MEDS: *HR* Rivaroxaban 10 MG TABLET PO SCH (17:32)
[2018-05-28] MEDS: Acetaminophen 325 MG TABLET PO PRN (20:37)
[2018-05-29] MEDS: Insulin LISPRO 300 UNITS/3 ML VIAL SQ SCH ×4 (08:30→20:45)
[2018-05-29] MEDS: Ascorbic Acid 500 MG TABLET PO SCH ×2 (09:41→20:45)
[2018-05-29] MEDS: Multivit/Ca/Min/Fe/FA 1 TAB TABLET PO SCH (09:41)
[2018-05-29] MEDS: Lactobacillus 1 EACH CAP.SPRINK PO SCH ×2 (09:41→20:45)
[2018-05-29] MEDS: Cholecalciferol (D-3) 1,000 UNIT TABLET PO SCH (09:41)
[2018-05-29] MEDS: Diltiazem CD (24hr) 180 MG CAPSULE PO SCH (09:41)
[2018-05-29] MEDS: FLUoxetine 20 MG CAPSULE PO SCH (09:41)
[2018-05-29] MEDS: Aspirin Enteric Coated 325 MG Tablet PO SCH (09:41)
--- NOTE | 2018-05-29 10:45 | Internal Med Progress Note ---
Addendum entered and electronically signed by Paulino Ybarra MD 05/29/18 10:49: I have personally performed a face to face evaluation on this patient. I have r eviewed and agree with the care plan. History and Exam by me shows: Patient is doing well, without complaint. She is pleased to be seen her surgeon tomorrow, with normal looking forward to the right in [place]. She has no ankle pain. She states bowels and bladder are working well. Discussed care with other providers and/or nursing. Patient has no complaint of chest discomfort, dyspnea, orthopnea, palpitations, nausea or vomiting, constipation or diarrhea, other changes in bowel habits, difficulty with urination, rash or itching, or other new complaints, except as mentioned above. Review of systems is otherwise negative. Examination: (Except as mentioned above): General: In no apparent distress. Alert and oriented 3. Nondiaphoretic. Head: Atraumatic and normocephalic. Respiratory: No use of accessory muscles. Lungs are clear throughout. Normal airflow. Cardiovascular: Irregularly irregular, consistent with rate controlled atrial fibrillation, without murmur appreciated. Abdomen: Bowel sounds are normal. No hepatosplenomegaly mass or tenderness appreciated. Obese and therefore difficult to palpate deeply. Extremities: No cyanosis clubbing or edema. Skin: Warm and non-diaphoretic with no new lesions noted. Original Note: Date of Encounter: 05/29/18 Time of Encounter: 10:43 - Assessment and plan (1) Cerebrovascular accident (CVA) Current Visit: Yes Status: Acute Assessment and plan: No new neurological deficits. Continue PT and OT. Will follow progress. Follow up with neurologist as scheduled. 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 Pain controlled. Weight bearing as tolerated. Follow up with surgeon as scheduled tomorrow, 05/29/2018 Qualifiers: Encounter type: subsequent encounter Fracture healing: with routine healing Qualified Code(s): S82.892D - Other fracture of left lower leg, subsequent encounter for closed fracture with routine healing (3) Diabetes Current Visit: Yes Status: Acute Assessment and plan: Controlled. Monitor fingerstick blood sugars. Will adjust coverage was sliding scale. Qualifiers: Diabetes mellitus type: type 2 Diabetes mellitus care home insulin use: without long term care pharmacist use Diabetes mellitus complication status: with unspecified complications Qualified Code(s): E11.8 - Type 2 diabetes mellitus with unspecified complications (4) Atrial fibrillation Current Visit: Yes Status: Chronic Assessment and plan: Rate and rhythm controlled. Continues xarelto. Qualifiers: Atrial fibrillation type: chronic Qualified Code(s): I48.2 - Chronic atrial fibrillation - Time Spent With Patient less than 15 minutes - Subjective Interval history: participating well with therapy. standing with min assist from [facility]. ambulated with walker with therapy. denies new neurological deficits, nausea, vomitting or diarrhea. last BM this am. denies fever, chill, SOB or chest pain. walking boot on left. maintaining appetite and hydration. - Constitutional Vitals: Temp Pulse Resp BP Pulse Ox 97.8 F 90 16 122/81 92 05/28/18 19:45 05/29/18 08:15 05/29/18 08:15 05/29/18 08:15 05/29/18 08:15 General appearance: Present: cooperative, A&O X 3, pleasant, no acute distress, answers questions appropriately - Head Head exam: Present: atraumatic, normocephalic - Eye Eye exam: Present: PERRL, conjuntiva pink, sclera anicteric Pupils: Present: PERRL - Neck Neck exam general surgery: Present: supple, trachea midline. Absent: lymphadenopathy - Respiratory Respiratory exam: Present: CTAB. Absent: accessory muscle use, rales, rhonchi, wheezes - Cardiovascular Cardiovascular exam: Present: RRR, +S1, +S2. Absent: diastolic murmur, gallop, rubs, systolic murmur - GI/Abdominal GI/Abdominal exam: Present: normal bowel sounds, soft, no peritoneal signs. Absent: distended, tenderness - Extremities Exam Extremities exam: Present: warm, radial pulses palpable and symmetrical. Absent: calf tenderness, cyanotic, pedal edema Additional comments: walking boot on left. - Neurological Exam Neurological exam: Present: CN II-XII intact, oriented X3, no focal deficits. Absent: pronater drift, facial droop, speech deficit - Skin Skin exam: Present: dry, intact Internal Medicine: Result - Labs CBC & Chem 7: 05/28/18 11:25 05/28/18 11:25 Labs: Short CBC 05/28/18 Range/Units 11:25 WBC 7.5 (4.3-11.1) K/mcL Hgb 12.8 (11.5-15.4) g/dL Hct 40.6 (35.3-44.9) % Plt Count 423 H (140-400) K/mcL Neutrophils # 5.7 (1.6-8.9) K/mcL BMP 05/28/18 11:25 Sodium 139 Potassium 4.1 Chloride 106 Carbon Dioxide 27 BUN 14 Creatinine 0.78 Glucose 165 H Calcium 9.4 Liver Function 05/28/18 Range/Units 11:25 Total Bilirubin 0.6 (0.3-1.0) mg/dL AST 26 (13-39) Units/L ALT 29 (7-52) Units/L Alkaline Phosphatase 105 H (34-104) Units/L Albumin 3.9 (3.5-5.7) g/dL - ABG Interpretation ABG results: PT/INR, D-dimer PT 13.7 Seconds (9.4-12.1) H 05/21/18 06:35 Consult Discharge Plan - Plan Referrals: Carmelo Boudreaux MD [Primary Care Provider] -
[2018-05-29] MEDS: *HR* Rivaroxaban 10 MG TABLET PO SCH (17:34)
[2018-05-29] MEDS: Leptospermum Honey Gel 44 ML TUBE TP SCH (20:44)
[2018-05-29] MEDS: Acetaminophen 325 MG TABLET PO PRN (20:44)
[2018-05-30] MEDS: Insulin LISPRO 300 UNITS/3 ML VIAL SQ SCH ×4 (07:25→20:29)
[2018-05-30] MEDS: Acetaminophen 325 MG TABLET PO PRN (07:31)
[2018-05-30] MEDS: Diltiazem CD (24hr) 180 MG CAPSULE PO SCH (07:31)
[2018-05-30] MEDS: FLUoxetine 20 MG CAPSULE PO SCH (07:31)
[2018-05-30] MEDS: Cholecalciferol (D-3) 1,000 UNIT TABLET PO SCH (07:31)
[2018-05-30] MEDS: Ascorbic Acid 500 MG TABLET PO SCH ×2 (07:32→19:26)
[2018-05-30] MEDS: Leptospermum Honey Gel 44 ML TUBE TP SCH (07:32)
[2018-05-30] MEDS: Aspirin Enteric Coated 325 MG Tablet PO SCH (07:32)
[2018-05-30] MEDS: Lactobacillus 1 EACH CAP.SPRINK PO SCH ×2 (07:32→19:25)
[2018-05-30] MEDS: Multivit/Ca/Min/Fe/FA 1 TAB TABLET PO SCH (07:32)
--- NOTE | 2018-05-30 09:30 | Event Note ---
Date of Encounter: 05/30/18 Time of Encounter: 09:29 Unable to see patient today. Patient is also unit doing a follow-up with her physician.
[2018-05-30] MEDS: *HR* Rivaroxaban 10 MG TABLET PO SCH (17:36)
[2018-05-30] MEDS: Famotidine 20 MG TABLET PO SCH (19:25)
--- NOTE | 2018-05-31 10:46 | Internal Med Progress Note ---
Date of Encounter: 05/31/18 Time of Encounter: 10:44 - Assessment and plan (1) Cerebrovascular accident (CVA) Current Visit: Yes Status: Acute Assessment and plan: Patient was recent history of a right ischemic CVA with left hemiparesis. Patient's muscle strength left extremities show mild weakness with left extremities 4+/5 and right extremities have 5/5. Patient denies any issues and no further issues with dysphasa rec'd. Patient to continue with physical therapy and mobilize. Vital signs stable. We will continue with current medications, to include heparin. 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 Surgical incision currently is covered with a Tigre wrap which is dry and intact. No edema noted. Distal CV checks normal. Left leg walking boot with patient able to have TDWB. Pain is been normal with patient stating current medications have been effective. We will continue with current therapy. Patient with f/u appt with ortho yesterday with no issues reported and no further recommendations rec'd Qualifiers: Encounter type: subsequent encounter Fracture healing: with routine healing Qualified Code(s): S82.892D - Other fracture of left lower leg, subsequent encounter for closed fracture with routine healing (3) Atrial fibrillation Current Visit: Yes Status: Chronic Assessment and plan: No acute issues during her stay here. Heart rate remains irregular with ventricular rate controlled less than 100. Vital signs are stable. Patient de nies any palpitations or chest discomforts. We will continue on current medications Qualifiers: Atrial fibrillation type: chronic Qualified Code(s): I48.2 - Chronic atrial fibrillation (4) Diabetes Current Visit: Yes Status: Acute Assessment and plan: No acute issues. Patient's glucose has been well-controlled with most readings less than 170. We will continue with sliding scale coverage continue to monitor Qualifiers: Diabetes mellitus type: type 2 Diabetes mellitus group home insulin use: without group home use Diabetes mellitus complication status: with unspecified complications Qualified Code(s): E11.8 - Type 2 diabetes mellitus with unspecified complications - Time Spent With Patient less than 15 minutes - Subjective Interval history: Patient appears relaxed and currently denies any discomforts or shortness of breath. Denies any chest palpitations. She states she has not had any pain to her left ankle surgical site, which remains with TIGRE type dressiing. Patient was seen by Ortho on f/u yesterday and states that she had Xrays performed and was told that everything was looking okay. No new orders or recommendations rec'd. Patient continues with left hemiparesis and states that she feels her strength has improved since her initial incident. Nursing has reported the patient does have some issues with swallow, which was noted during her med passing. Patient denies any current issues. - Constitutional Vitals: Temp Pulse Resp BP Pulse Ox 97.7 F 89 16 113/88 97 05/31/18 06:00 05/31/18 06:00 05/31/18 06:00 05/31/18 06:00 05/31/18 06:00 General appearance: Present: cooperative, A&O X 3, pleasant, no acute distress, answers questions appropriately - Head Head exam: Present: atraumatic, normocephalic - Eye Eye exam: Present: PERRL, conjuntiva pink, sclera anicteric Pupils: Present: PERRL - Neck Neck exam general surgery: Present: supple, trachea midline. Absent: lymphadenopathy - Respiratory Respiratory exam: Present: decreased breath sounds, CTAB. Absent: accessory muscle use, rales, rhonchi, wheezes - Cardiovascular Cardiovascular exam: Present: RRR, +S1, +S2. Absent: diastolic murmur, gallop, rubs, systolic murmur - GI/Abdominal GI/Abdominal exam: Present: normal bowel sounds, soft, no peritoneal signs. Absent: distended, tenderness - Extremities Exam Extremities exam: Present: normal capillary refill, normal inspection, warm, radial pulses palpable and symmetrical. Absent: calf tenderness, cyanotic, pedal edema Additional comments: Left foot continues with Tigre wrap dressing that is dry and intact. Walking boot in place. Distal CV checks were WNL - Neurological Exam Neurological exam: Present: CN II-XII intact, oriented X3. Absent: pronater drift, facial droop, speech deficit Additional comments: Slight left hemiparesis with LE +4/5 MS and RE 5/5 MS - Skin Skin exam: Present: dry, intact Internal Medicine: Result - Labs CBC & Chem 7: 05/28/18 11:25 05/28/18 11:25 - ABG Interpretation ABG results: PT/INR, D-dimer PT 13.7 Seconds (9.4-12.1) H 05/21/18 06:35 Consult Discharge Plan - Plan Referrals: Carmelo Boudreaux MD [Primary Care Provider] -
[2018-05-31] MEDS: Famotidine 20 MG TABLET PO SCH ×2 (12:08→20:01)
[2018-05-31] MEDS: Aspirin Enteric Coated 81 MG Tablet PO SCH (12:08)
[2018-05-31] MEDS: Cholecalciferol (D-3) 1,000 UNIT TABLET PO SCH (12:08)
[2018-05-31] MEDS: FLUoxetine 20 MG CAPSULE PO SCH (12:08)
[2018-05-31] MEDS: Ascorbic Acid 500 MG TABLET PO SCH ×2 (12:09→20:01)
[2018-05-31] MEDS: Diltiazem CD (24hr) 180 MG CAPSULE PO SCH (12:09)
[2018-05-31] MEDS: Lactobacillus 1 EACH CAP.SPRINK PO SCH ×2 (12:09→20:01)
[2018-05-31] MEDS: Multivit/Ca/Min/Fe/FA 1 TAB TABLET PO SCH (12:09)
[2018-05-31] MEDS: Leptospermum Honey Gel 44 ML TUBE TP SCH (12:10)
[2018-05-31] MEDS: Insulin LISPRO 300 UNITS/3 ML VIAL SQ SCH ×3 (12:10→21:06)
[2018-05-31] MEDS: *HR* Rivaroxaban 10 MG TABLET PO SCH (17:28)
[2018-06-01] MEDS: Aspirin Enteric Coated 81 MG Tablet PO SCH (09:17)
[2018-06-01] MEDS: Ascorbic Acid 500 MG TABLET PO SCH ×2 (09:17→20:28)
[2018-06-01] MEDS: Multivit/Ca/Min/Fe/FA 1 TAB TABLET PO SCH (09:18)
[2018-06-01] MEDS: Cholecalciferol (D-3) 1,000 UNIT TABLET PO SCH (09:18)
[2018-06-01] MEDS: Lactobacillus 1 EACH CAP.SPRINK PO SCH ×2 (09:18→20:27)
[2018-06-01] MEDS: Famotidine 20 MG TABLET PO SCH ×2 (09:18→20:27)
[2018-06-01] MEDS: Diltiazem CD (24hr) 180 MG CAPSULE PO SCH (09:18)
[2018-06-01] MEDS: FLUoxetine 20 MG CAPSULE PO SCH (09:18)
[2018-06-01] MEDS: Insulin LISPRO 300 UNITS/3 ML VIAL SQ SCH ×4 (09:18→20:28)
[2018-06-01] MEDS: Leptospermum Honey Gel 44 ML TUBE TP SCH (09:18)
--- NOTE | 2018-06-01 11:14 | Internal Med Progress Note ---
Date of Encounter: 06/01/18 Time of Encounter: 11:13 - Assessment and plan (1) Cerebrovascular accident (CVA) Current Visit: Yes Status: Acute Assessment and plan: No new neurological deficits. Continue PT and OT. Will follow progress. Follow up with neurologist as scheduled. 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 Pain controlled. Weight bearing as tolerated. Follow up with surgeon as scheduled. Qualifiers: Encounter type: subsequent encounter Fracture healing: with routine healing Qualified Code(s): S82.892D - Other fracture of left lower leg, subsequent encounter for closed fracture with routine healing (3) Diabetes Current Visit: Yes Status: Acute Assessment and plan: Controlled. Monitor fingerstick blood sugars. Will adjust coverage was sliding scale. Qualifiers: Diabetes mellitus type: type 2 Diabetes mellitus residential insulin use: without residential use Diabetes mellitus complication status: with unspecified complications Qualified Code(s): E11.8 - Type 2 diabetes mellitus with unspecified complications (4) Atrial fibrillation Current Visit: Yes Status: Chronic Assessment and plan: Rate and rhythm controlled. Continues xarelto. Qualifiers: Atrial fibrillation type: chronic Qualified Code(s): I48.2 - Chronic atrial fibrillation - Time Spent With Patient less than 15 minutes - Subjective Interval history: participating well with therapy. ambulated with walker with therapy. denies new neurological deficits, nausea, vomitting or diarrhea. last BM this am. denies fever, chill, SOB or chest pain. walking boot on left. maintaining appetite and hydration. - Constitutional Vitals: Temp Pulse Resp BP Pulse Ox 97.7 F 79 16 131/82 92 06/01/18 07:14 06/01/18 07:14 06/01/18 07:14 06/01/18 07:14 06/01/18 07:14 General appearance: Present: cooperative, A&O X 3, pleasant, no acute distress, answers questions appropriately - Head Head exam: Present: atraumatic, normocephalic - Eye Eye exam: Present: PERRL, conjuntiva pink, sclera anicteric Pupils: Present: PERRL - Neck Neck exam general surgery: Present: supple, trachea midline. Absent: lymphadenopathy - Respiratory Respiratory exam: Present: CTAB. Absent: accessory muscle use, rales, rhonchi, wheezes - Cardiovascular Cardiovascular exam: Present: RRR, +S1, +S2. Absent: diastolic murmur, gallop, rubs, systolic murmur - GI/Abdominal GI/Abdominal exam: Present: normal bowel sounds, soft, no peritoneal signs. Absent: distended, tenderness - Extremities Exam Extremities exam: Present: warm, radial pulses palpable and symmetrical. Absent: calf tenderness, cyanotic, pedal edema Additional comments: boot on left foot. - Neurological Exam Neurological exam: Present: CN II-XII intact, oriented X3, no focal deficits. Absent: pronater drift, facial droop, speech deficit - Skin Skin exam: Present: dry, intact Internal Medicine: Result - Labs CBC & Chem 7: 05/28/18 11:25 05/28/18 11:25 - ABG Interpretation ABG results: PT/INR, D-dimer PT 13.7 Seconds (9.4-12.1) H 05/21/18 06:35 Consult Discharge Plan - Plan Referrals: Carmelo Boudreaux MD [Primary Care Provider] -
[2018-06-01] MEDS: *HR* Rivaroxaban 10 MG TABLET PO SCH (18:08)
[2018-06-02] MEDS: Insulin LISPRO 300 UNITS/3 ML VIAL SQ SCH ×4 (08:24→20:27)
[2018-06-02] MEDS: Diltiazem CD (24hr) 180 MG CAPSULE PO SCH (09:22)
[2018-06-02] MEDS: Multivit/Ca/Min/Fe/FA 1 TAB TABLET PO SCH (09:22)
[2018-06-02] MEDS: Lactobacillus 1 EACH CAP.SPRINK PO SCH ×2 (09:22→20:14)
[2018-06-02] MEDS: Aspirin Enteric Coated 81 MG Tablet PO SCH (09:22)
[2018-06-02] MEDS: Famotidine 20 MG TABLET PO SCH ×2 (09:22→20:14)
[2018-06-02] MEDS: Ascorbic Acid 500 MG TABLET PO SCH ×2 (09:22→20:14)
[2018-06-02] MEDS: FLUoxetine 20 MG CAPSULE PO SCH (09:22)
[2018-06-02] MEDS: Leptospermum Honey Gel 44 ML TUBE TP SCH (09:23)
[2018-06-02] MEDS: Cholecalciferol (D-3) 1,000 UNIT TABLET PO SCH (09:23)
--- NOTE | 2018-06-02 15:10 | Internal Med Progress Note ---
Date of Encounter: 06/03/18 Time of Encounter: 14:30 - Assessment and plan (1) Cerebrovascular accident (CVA) Current Visit: Yes Status: Acute Qualifiers: CVA mechanism: embolism Precerebral and cerebral artery: middle cerebral artery Laterality of affected vessel: right Qualified Code(s): I63.411 - Cerebral infarction due to embolism of right middle cerebral artery (2) Atrial fibrillation Current Visit: Yes Status: Chronic Qualifiers: Atrial fibrillation type: chronic Qualified Code(s): I48.2 - Chronic atrial fibrillation (3) Depressed Current Visit: Yes Status: Acute Qualifiers: Depression Type: major depressive disorder Major depression recurrence: unspecified whether recurrent Active/Remission status: currently active Major depression episode severity: unspecified Qualified Code(s): F32.9 - Ma rosamaria depressive disorder, single episode, unspecified - Subjective Interval history: Assessment and Plan (1) Cerebrovascular accident (CVA) Current visit: Yes Status: Acute Patient underwent treatment at [facility] including TPA is stable now and back on Xarelto She is deconditioned and doing rehabilitation Had previous noncompliance with Xarelto due to depression, depression is currently being treated and stable Recent left ankle fracture . Qualifiers: CVA mechanism: embolism Laterality of affected vessel: right Qualified Code(s): I63.411 - Cerebral infarction due to embolism of right middle cerebral artery (2) Atrial fibrillation Current visit: Yes Status: Chronic Patient has had atrial fibrillation for several years. Diagnosed after routine knee surgery. She is currently rate controlled and stable. She is managed with calcium channel mariella. An chronic anticoagulation xarelto Qualifiers: Atrial fibrillation type: chronic Qualified Code(s): I48.2 - Chronic atrial fibrillation (3) Depressed Current visit: Yes Status: Acute Patient is currently stable with her depression she was started on treatment [facility] she denies problems with these medications. She states she still feels apathetic but denies suicidal ideation or thoughts of harm to self or others. She is agreeable to taking her routine medications and participating in therapy. Qualifiers: Depression Type: major depressive disorder Major depression recurrence: unspecified whether recurrent Active/Remission status: currently active Major depression episode severity: unspecified Qualified Code(s): F32.9 - Major depressive disorder, single episode, unspecified Interval HX Ms. Guerra is a 77 year old female who transferred here for rehabilitation after deconditioning. She comes from [facility]. She was treated at [facility] for acute right-sided CVA, she reports she had complex treatment. Her states she had TPA and thrombus removal. She ultimately had some improvement but has residual left-sided weakness and minor speech impairment, general fatigue and weakness, and vertigo. Doing well and progressing Exam General she is older than stated age talkative HEENT dry oral mucosa no lesions noted Neck supple no bruit Heart irregular no definite murmur Lungs clear bilaterally Abdomen full soft nontender bowel sounds present Extremities left ankle incision intact no drainage no significant edema bilaterally Neurologic mild left-sided weakness - Constitutional Vitals: Temp Pulse Resp BP Pulse Ox 98.1 F 87 16 124/73 96 06/02/18 08:31 06/02/18 08:31 06/02/18 08:31 06/02/18 08:31 06/02/18 08:31 Internal Medicine: Result - Labs CBC & Chem 7: 06/03/18 05:20 05/28/18 11:25 - ABG Interpretation ABG results: PT/INR, D-dimer PT 13.7 Seconds (9.4-12.1) H 05/21/18 06:35 Consult Discharge Plan - Plan Referrals: Cramelo Boudreaux MD [Primary Care Provider] -
[2018-06-02] MEDS: *HR* Rivaroxaban 10 MG TABLET PO SCH (16:24)
[2018-06-03 05:39] LABS: Hematocrit 38.2 % (35.3-44.9); Hemoglobin 12.1 g/dL (11.5-15.4); Mean Corpuscular HGB Conc 31.7 g/dL (31.6-35.5); Mean Corpuscular Hemoglobin 30.2 pg (28.0-33.3); Mean Corpuscular Volume 95.3 fL (83.0-100.0); Platelet Count 297 K/mcL (140-400); Red Blood Count 4.01 M/mcL (3.82-4.97); Red Cell Distribution Width 14.5 % (11.5-14.5)
[2018-06-03] MEDS: Insulin LISPRO 300 UNITS/3 ML VIAL SQ SCH ×4 (08:23→20:40)
[2018-06-03] MEDS: Cholecalciferol (D-3) 1,000 UNIT TABLET PO SCH (08:25)
[2018-06-03] MEDS: Lactobacillus 1 EACH CAP.SPRINK PO SCH ×2 (08:25→20:39)
[2018-06-03] MEDS: Multivit/Ca/Min/Fe/FA 1 TAB TABLET PO SCH (08:25)
[2018-06-03] MEDS: FLUoxetine 20 MG CAPSULE PO SCH (08:25)
[2018-06-03] MEDS: Diltiazem CD (24hr) 180 MG CAPSULE PO SCH (08:25)
[2018-06-03] MEDS: Famotidine 20 MG TABLET PO SCH ×2 (08:25→20:39)
[2018-06-03] MEDS: Aspirin Enteric Coated 81 MG Tablet PO SCH (08:25)
[2018-06-03] MEDS: Ascorbic Acid 500 MG TABLET PO SCH ×2 (08:25→20:39)
[2018-06-03] MEDS: Leptospermum Honey Gel 44 ML TUBE TP SCH (08:26)
--- NOTE | 2018-06-03 14:38 | Internal Med Progress Note ---
Date of Encounter: 06/03/18 Time of Encounter: 15:00 - Assessment and plan (1) Cerebrovascular accident (CVA) Current Visit: Yes Status: Acute Qualifiers: CVA mechanism: embolism Precerebral and cerebral artery: middle cerebral artery Laterality of affected vessel: right Qualified Code(s): I63.411 - Cerebral infarction due to embolism of right middle cerebral artery (2) Atrial fibrillation Current Visit: Yes Status: Chronic Qualifiers: Atrial fibrillation type: chronic Qualified Code(s): I48.2 - Chronic atrial fibrillation (3) Depressed Current Visit: Yes Status: Acute Qualifiers: Depression Type: major depressive disorder Major depression recurrence: unspecified whether recurrent Active/Remission status: currently active Major depression episode severity: unspecified Qualified Code(s): F32.9 - Ma rosamaria depressive disorder, single episode, unspecified - Subjective Interval history: Assessment and Plan (1) Cerebrovascular accident (CVA) Current visit: Yes Status: Acute Patient underwent treatment at [facility] including TPA is stable now and back on Xarelto She is deconditioned and doing rehabilitation Had previous noncompliance with Xarelto due to depression, depression is currently being treated and stable Recent left ankle fracture . Qualifiers: CVA mechanism: embolism Laterality of affected vessel: right Qualified Code(s): I63.411 - Cerebral infarction due to embolism of right middle cerebral artery (2) Atrial fibrillation Current visit: Yes Status: Chronic Patient has had atrial fibrillation for several years. Diagnosed after routine knee surgery. She is currently rate controlled and stable. She is managed with calcium channel mariella. An chronic anticoagulation xarelto Qualifiers: Atrial fibrillation type: chronic Qualified Code(s): I48.2 - Chronic atrial fibrillation (3) Depressed Current visit: Yes Status: Acute Patient is currently stable with her depression she was started on treatment [facility] she denies problems with these medications. She states she still feels apathetic but denies suicidal ideation or thoughts of harm to self or others. She is agreeable to taking her routine medications and participating in therapy. Qualifiers: Depression Type: major depressive disorder Major depression recurrence: unspecified whether recurrent Active/Remission status: currently active Major depression episode severity: unspecified Qualified Code(s): F32.9 - Major depressive disorder, single episode, unspecified Interval HX Ms. Guerra is a 77 year old female who transferred here for rehabilitation after deconditioning. She comes from [facility]. She was treated at [facility] for acute right-sided CVA, she reports she had complex treatment. Her states she had TPA and thrombus removal. She ultimately had some improvement but has residual left-sided weakness and minor speech impairment, general fatigue and weakness, and vertigo. Doing well and progressing Exam General she is older than stated age talkative HEENT dry oral mucosa no lesions noted Neck supple no bruit Heart irregular no definite murmur Lungs clear bilaterally Abdomen full soft nontender bowel sounds present Extremities left ankle incision intact no drainage no significant edema bilaterally Neurologic mild left-sided weakness - Constitutional Vitals: Temp Pulse Resp BP Pulse Ox 97.7 F 85 16 136/82 95 06/03/18 08:00 06/03/18 08:00 06/03/18 08:00 06/03/18 08:00 06/03/18 08:00 General appearance: Present: cooperative, A&O X 3, pleasant, no acute distress, answers questions appropriately Internal Medicine: Result - Labs CBC & Chem 7: 06/03/18 05:20 05/28/18 11:25 Labs: Short CBC 06/03/18 Range/Units 05:20 WBC 7.0 (4.3-11.1) K/mcL Hgb 12.1 (11.5-15.4) g/dL Hct 38.2 (35.3-44.9) % Plt Count 297 (140-400) K/mcL - ABG Interpretation ABG results: PT/INR, D-dimer PT 13.7 Seconds (9.4-12.1) H 05/21/18 06:35 Consult Discharge Plan - Plan Referrals: Carmelo Boudreaux MD [Primary Care Provider] -
[2018-06-03] MEDS: *HR* Rivaroxaban 10 MG TABLET PO SCH (17:51)
[2018-06-03] MEDS: Acetaminophen 325 MG TABLET PO PRN (20:44)
[2018-06-04] MEDS: FLUoxetine 20 MG CAPSULE PO SCH (07:31)
[2018-06-04] MEDS: Ascorbic Acid 500 MG TABLET PO SCH ×2 (07:31→21:43)
[2018-06-04] MEDS: Multivit/Ca/Min/Fe/FA 1 TAB TABLET PO SCH (07:31)
[2018-06-04] MEDS: Diltiazem CD (24hr) 180 MG CAPSULE PO SCH (07:31)
[2018-06-04] MEDS: Cholecalciferol (D-3) 1,000 UNIT TABLET PO SCH (07:37)
[2018-06-04] MEDS: Aspirin Enteric Coated 81 MG Tablet PO SCH (07:37)
[2018-06-04] MEDS: Famotidine 20 MG TABLET PO SCH ×2 (07:37→21:43)
[2018-06-04] MEDS: Leptospermum Honey Gel 44 ML TUBE TP SCH (07:37)
[2018-06-04] MEDS: Insulin LISPRO 300 UNITS/3 ML VIAL SQ SCH ×4 (07:47→21:44)
[2018-06-04] MEDS: Lactobacillus 1 EACH CAP.SPRINK PO SCH ×2 (07:48→21:43)
[2018-06-04] MEDS: Acetaminophen 325 MG TABLET PO PRN (07:50)
--- NOTE | 2018-06-04 11:27 | Internal Med Progress Note ---
Date of Encounter: 06/04/18 Time of Encounter: 11:26 - Assessment and plan (1) Cerebrovascular accident (CVA) Current Visit: Yes Status: Acute Assessment and plan: No new neurological deficits. Continue PT and OT. Will follow progress. Follow up with neurologist as scheduled. 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 Pain controlled. Weight bearing as tolerated. Follow up with surgeon as scheduled. Qualifiers: Encounter type: subsequent encounter Fracture healing: with routine healing Qualified Code(s): S82.892D - Other fracture of left lower leg, subsequent encounter for closed fracture with routine healing (3) Diabetes Current Visit: Yes Status: Acute Assessment and plan: Controlled. Monitor fingerstick blood sugars. Will adjust coverage was sliding scale. Qualifiers: Diabetes mellitus type: type 2 Diabetes mellitus group home insulin use: without group home use Diabetes mellitus complication status: with unspecified complications Qualified Code(s): E11.8 - Type 2 diabetes mellitus with unspecified complications (4) Atrial fibrillation Current Visit: Yes Status: Chronic Assessment and plan: Rate and rhythm controlled. Continues xarelto. Qualifiers: Atrial fibrillation type: chronic Qualified Code(s): I48.2 - Chronic atrial fibrillation - Time Spent With Patient less than 15 minutes - Subjective Interval history: participating well with therapy. ambulated with walker with therapy. denies new neurological deficits, nausea, vomitting or diarrhea. last BM this am. denies fever, chill, SOB or chest pain. walking boot on left. maintaining appetite and hydration. - Constitutional Vitals: Temp Pulse Resp BP Pulse Ox 97.6 F 97 16 133/80 93 06/04/18 07:56 06/04/18 07:56 06/04/18 07:56 06/04/18 07:56 06/04/18 07:56 General appearance: Present: cooperative, A&O X 3, pleasant, no acute distress, answers questions appropriately - Head Head exam: Present: atraumatic, normocephalic - Eye Eye exam: Present: PERRL, conjuntiva pink, sclera anicteric Pupils: Present: PERRL - Neck Neck exam general surgery: Present: supple, trachea midline. Absent: lymphadenopathy - Respiratory Respiratory exam: Present: CTAB. Absent: accessory muscle use, rales, rhonchi, wheezes - Cardiovascular Cardiovascular exam: Present: RRR, +S1, +S2. Absent: diastolic murmur, gallop, rubs, systolic murmur - GI/Abdominal GI/Abdominal exam: Present: normal bowel sounds, soft, no peritoneal signs. Absent: distended, tenderness - Extremities Exam Extremities exam: Present: warm, radial pulses palpable and symmetrical. Absent: calf tenderness, cyanotic, pedal edema Additional comments: Walking boot On left foot. - Neurological Exam Neurological exam: Present: CN II-XII intact, oriented X3, no focal deficits. Absent: pronater drift, facial droop, speech deficit - Skin Skin exam: Present: dry, intact Internal Medicine: Result - Labs CBC & Chem 7: 06/03/18 05:20 05/28/18 11:25 - ABG Interpretation ABG results: PT/INR, D-dimer PT 13.7 Seconds (9.4-12.1) H 05/21/18 06:35 Consult Discharge Plan - Plan Referrals: Carmelo Boudreaux MD [Primary Care Provider] -
[2018-06-04] MEDS: *HR* Rivaroxaban 10 MG TABLET PO SCH (16:50)
[2018-06-04 20:14] LABS: Bilirubin,Urine Negative (Negative); Blood,Urine Moderate (Negative); Clarity,Urine Slightly Cloudy (Clear); Glucose,Urine (UA) 100 mg/dL (Normal); Ketones,Urine Trace mg/dL (Negative); Leukocyte Esterase,Urine Small (Negative); Nitrite,Urine Negative (Negative); Protein,Urine 100 mg/dL (Neg-Trace); Specific Gravity,Urine 1.025 (1.010-1.025); Urobilinogen,Urine Normal (Normal)
[2018-06-04 20:16] LABS: Color,Urine Yellow (Yellow)
[2018-06-04 20:17] LABS: Bacteria,Urine Few per hpf (None-Few); Hyaline Casts,Urine Few per lpf (None-Few); Squamous Epithelial Cell,Urine Few per lpf (None-Few)
[2018-06-05] MEDS: Diltiazem CD (24hr) 180 MG CAPSULE PO SCH (08:39)
[2018-06-05] MEDS: Insulin LISPRO 300 UNITS/3 ML VIAL SQ SCH ×4 (08:39→21:17)
[2018-06-05] MEDS: Multivit/Ca/Min/Fe/FA 1 TAB TABLET PO SCH (08:40)
[2018-06-05] MEDS: Aspirin Enteric Coated 81 MG Tablet PO SCH (08:40)
[2018-06-05] MEDS: Lactobacillus 1 EACH CAP.SPRINK PO SCH ×2 (08:40→21:19)
[2018-06-05] MEDS: Cholecalciferol (D-3) 1,000 UNIT TABLET PO SCH (08:40)
[2018-06-05] MEDS: FLUoxetine 20 MG CAPSULE PO SCH (08:40)
[2018-06-05] MEDS: Ascorbic Acid 500 MG TABLET PO SCH ×2 (08:41→21:21)
[2018-06-05] MEDS: Famotidine 20 MG TABLET PO SCH ×2 (08:41→21:20)
[2018-06-05] MEDS: Leptospermum Honey Gel 44 ML TUBE TP SCH (08:41)
--- NOTE | 2018-06-05 09:07 | Internal Med Progress Note ---
Date of Encounter: 06/05/18 Time of Encounter: 09:05 - Assessment and plan (1) Cerebrovascular accident (CVA) Current Visit: Yes Status: Acute Qualifiers: CVA mechanism: embolism Precerebral and cerebral artery: middle cerebral artery Laterality of affected vessel: right Qualified Code(s): I63.411 - Cerebral infarction due to embolism of right middle cerebral artery (2) Closed left ankle fracture Current Visit: Yes Status: Acute Qualifiers: Encounter type: subsequent encounter Fracture healing: with routine healing Qualified Code(s): S82.892D - Other fracture of left lower leg, subsequent encounter for closed fracture with routine healing (3) Diabetes Current Visit: Yes Status: Acute Qualifiers: Diabetes mellitus type: type 2 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 ambulated with walker with therapy 60ft with CGA-MIN. denies new neurological deficits, nausea, vomitting or diarrhea. last BM this am. denies fever, chill, SOB or chest pain. walking boot on left. maintaining appetite and hydration. - Constitutional Vitals: Temp Pulse Resp BP Pulse Ox 98.0 F 113 20 123/80 93 06/05/18 07:25 06/05/18 07:25 06/05/18 07:25 06/05/18 07:25 06/05/18 07:25 General appearance: Present: cooperative, A&O X 3, pleasant, no acute distress, answers questions appropriately - Head Head exam: Present: atraumatic, normocephalic - Eye Eye exam: Present: PERRL, conjuntiva pink, sclera anicteric Pupils: Present: PERRL - Neck Neck exam general surgery: Present: supple, trachea midline. Absent: ly mphadenopathy - Respiratory Respiratory exam: Present: CTAB. Absent: accessory muscle use, rales, rhonchi, wheezes - Cardiovascular Cardiovascular exam: Present: RRR, +S1, +S2. Absent: diastolic murmur, gallop, rubs, systolic murmur - GI/Abdominal GI/Abdominal exam: Present: normal bowel sounds, soft, no peritoneal signs. Absent: distended, tenderness - Extremities Exam Extremities exam: Present: warm, radial pulses palpable and symmetrical. Absent: calf tenderness, cyanotic, pedal edema Additional comments: walking boot on left. - Neurological Exam Neurological exam: Present: CN II-XII intact, oriented X3, no focal deficits. Absent: pronater drift, facial droop, speech deficit - Skin Skin exam: Present: dry, intact Internal Medicine: Result - Labs CBC & Chem 7: 06/03/18 05:20 05/28/18 11:25 Labs: Urine 06/04/18 Range/Units 19:00 Urine Color Yellow (Yellow) Urine Clarity Slightly Cloudy A (Clear) Urine pH 6.0 (5.0-8.0) pH Units Ur Specific [place] 1.025 (1.010-1.025) Urine Protein 100 H (Neg-Trace) mg/dL Urine Glucose (UA) 100 H (Normal) mg/dL - ABG Interpretation ABG results: PT/INR, D-dimer PT 13.7 Seconds (9.4-12.1) H 05/21/18 06:35 Consult Discharge Plan - Plan Referrals: Carmelo Boudreaux MD [Primary Care Provider] -
[2018-06-05] MEDS: *HR* Rivaroxaban 10 MG TABLET PO SCH (17:11)
[2018-06-06] MEDS: Insulin LISPRO 300 UNITS/3 ML VIAL SQ SCH ×4 (07:57→20:58)
[2018-06-06] MEDS: Leptospermum Honey Gel 44 ML TUBE TP SCH (09:23)
[2018-06-06] MEDS: Aspirin Enteric Coated 81 MG Tablet PO SCH (09:29)
[2018-06-06] MEDS: Famotidine 20 MG TABLET PO SCH ×2 (09:29→20:57)
[2018-06-06] MEDS: Ascorbic Acid 500 MG TABLET PO SCH ×2 (09:29→20:56)
[2018-06-06] MEDS: FLUoxetine 20 MG CAPSULE PO SCH (09:29)
[2018-06-06] MEDS: Lactobacillus 1 EACH CAP.SPRINK PO SCH ×2 (09:30→20:56)
[2018-06-06] MEDS: Multivit/Ca/Min/Fe/FA 1 TAB TABLET PO SCH (09:30)
[2018-06-06] MEDS: Cholecalciferol (D-3) 1,000 UNIT TABLET PO SCH (09:30)
[2018-06-06] MEDS: Diltiazem CD (24hr) 180 MG CAPSULE PO SCH (09:30)
[2018-06-06 10:27] LABS: Basophils # 0.1 K/mcL (0.0-0.2); Basophils % 0.5 %; Eosinophils # 0.2 K/mcL (0.0-0.6); Eosinophils % 1.4 %; Hematocrit 38.1 % (35.3-44.9); Hemoglobin 12.5 g/dL (11.5-15.4); Immature Granulocytes % 0.4 % (0-4); Lymphocytes # 1.1 K/mcL (0.6-4.6); Lymphocytes % 9.5 %; Mean Corpuscular HGB Conc 32.8 g/dL (31.6-35.5); Mean Corpuscular Hemoglobin 31.3 pg (28.0-33.3); Mean Corpuscular Volume 95.3 fL (83.0-100.0); Mean Platelet Volume 9.3 fL (9.4-12.4); Monocytes # 0.8 K/mcL (0.0-1.3); Monocytes % 7.3 %; Platelet Count 306 K/mcL (140-400); Red Cell Distribution Width 14.7 % (11.5-14.5); Segmented Neutrophils % 80.9 %
[2018-06-06 10:39] LABS: Alanine Aminotransferase 35 Units/L (7-52); Albumin 3.9 g/dL (3.5-5.7); Albumin/Globulin Ratio 1.4 (1.1-2.2); Alkaline Phosphatase 103 Units/L (34-104); Aspartate Amino Transferase 26 Units/L (13-39); BUN/Creatinine Ratio 17 (6-26); Bilirubin,Total 0.9 mg/dL (0.3-1.0); Blood Urea Nitrogen 15 mg/dL (8-23); Calcium 9.2 mg/dL (8.6-10.3); Carbon Dioxide 26 mEq/L (23-29); Chloride 104 mEq/L (98-107); Globulin 2.7 g/dL (2.4-3.5); Glucose 212 mg/dL (70-105); Osmolality,Calculated 293 (280-300); Potassium 4.4 mEq/L (3.5-5.1); Sodium 138 mEq/L (136-145); Total Protein 6.6 g/dL (6.4-8.9); eGFR For Non-African Americans > 60 (> 60)
--- NOTE | 2018-06-06 12:28 | Internal Med Progress Note ---
Date of Encounter: 06/06/18 Time of Encounter: 12:26 - Assessment and plan (1) Cerebrovascular accident (CVA) Current Visit: Yes Status: Acute Assessment and plan: Patient was recent history of a right ischemic CVA with left hemiparesis. Patient's muscle strength left extremities show mild weakness with left extremities 4+/5 and right extremities have 5/5. Patient to continue with physical therapy and mobilize. Vital signs stable. We will continue with current medications, to include heparin. 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 Surgical incision currently is covered with a Tigre wrap which is dry and intact. No edema noted. Distal CV checks normal. Left leg walking boot with patient able to have TDWB. Pain is been normal with patient stating current medications have been effective. We will continue with current therapy. Qualifiers: Encounter type: subsequent encounter Fracture healing: with routine healing Qualified Code(s): S82.892D - Other fracture of left lower leg, subsequent encounter for closed fracture with routine healing (3) Atrial fibrillation Current Visit: Yes Status: Chronic Assessment and plan: No acute issues during her stay here. Heart rate remains irregular with ventricular rate controlled less than 100. Vital signs are stable. Patient denies any palpitations or chest discomforts. We will continue on current medications Qualifiers: Atrial fibrillation type: chronic Qualified Code(s): I48.2 - Chronic atrial fibrillation (4) Diabetes Current Visit: Yes Status: Acute Assessment and plan: No acute issues. Patient's glucose has been well-controlled with most readings less than 170. 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 Denies any chest palpitations. She states she has not had any pain to her left ankle surgical site, which remains with TIGRE type dressiing. Patient continues with slight left hemiparesis and states that she feels her strength has improved since her initial incident. Nursing has reported the patient does have some issues with swallow, which was noted during her med passing. Patient denies any current issues. - Constitutional Vitals: Temp Pulse Resp BP Pulse Ox 98.0 F 90 14 114/82 96 06/05/18 19:23 06/05/18 19:23 06/05/18 19:23 06/05/18 19:23 06/05/18 19:23 General appearance: Present: cooperative, A&O X 3, pleasant, no acute distress, answers questions appropriately - Head Head exam: Present: atraumatic, normocephalic - Eye Eye exam: Present: PERRL, conjuntiva pink, sclera anicteric Pupils: Present: PERRL - Neck Neck exam general surgery: Present: supple, trachea midline. Absent: lymphadenopathy - Respiratory Respiratory exam: Present: CTAB. Absent: accessory muscle use, rales, rhonchi, wheezes - Cardiovascular Cardiovascular exam: Present: RRR, +S1, +S2. Absent: diastolic murmur, gallop, rubs, systolic murmur - GI/Abdominal GI/Abdominal exam: Present: normal bowel sounds, soft, no peritoneal signs. Absent: distended, tenderness - Extremities Exam Extremities exam: Present: warm, radial pulses palpable and symmetrical. Absent: calf tenderness, cyanotic, pedal edema Additional comments: Left ankle and foot with Tigre wrap dressing that is dry and intact. Left walking boot in place. - Neurological Exam Neurological exam: Present: CN II-XII intact, oriented X3. Absent: pronater drift, facial droop, speech deficit Additional comments: Patient continues to show very slight left hemiparesis with left extremities have 4+/5 and right extremities at 5/5 muscle strength - Skin Skin exam: Present: dry, intact Internal Medicine: Result - Labs CBC & Chem 7: 06/06/18 10:17 06/06/18 10:17 Labs: Short CBC 06/06/18 Range/Units 10:17 WBC 11.1 D (4.3-11.1) K/mcL Hgb 12.5 (11.5-15.4) g/dL Hct 38.1 (35.3-44.9) % Plt Count 306 (140-400) K/mcL Neutrophils # 9.0 H (1.6-8.9) K/mcL BMP 06/06/18 10:17 Sodium 138 Potassium 4.4 Chloride 104 Carbon Dioxide 26 BUN 15 Creatinine 0.90 Glucose 212 H Calcium 9.2 Liver Function 06/06/18 Range/Units 10:17 Total Bilirubin 0.9 (0.3-1.0) mg/dL AST 26 (13-39) Units/L ALT 35 (7-52) Units/L Alkaline Phosphatase 103 (34-104) Units/L Albumin 3.9 (3.5-5.7) g/dL - ABG Interpretation ABG results: PT/INR, D-dimer PT 13.7 Seconds (9.4-12.1) H 05/21/18 06:35 Consult Discharge Plan - Plan Referrals: Carmelo Boudreaux MD [Primary Care Provider] -
--- NOTE | 2018-06-06 14:36 | Psychological Evaluation ---
Date of Encounter: 06/06/18 Time of Encounter: 11:00 History of Present Illness History of present illness: Ms. Guerra is a 77 year old female who transferred here for rehabilitation after deconditioning. She comes from [facility]. She was treated at [facility] for acute right-sided CVA, she reports she had complex treatment. Her states she had TPA and thrombus removal. Past Medical History - Psychiatric History Psychiatric history: Reports: depression Additional Psychiatric History: 3) Depressed Current visit: Yes Status: Acute Patient is currently stable with her depression she was started on treatment [facility] she denies problems with these medications. She states she still feels apathetic but denies suicidal ideation or thoughts of harm to self or others. She is agreeable to taking her routine medications and participating in therapy. Pt currently appears flat affect and tearful when discussing of son (5 years ago) and past 2 months. She denies any history of counseling but stated she has been on an antidepressant. Home Medications and Allergies Atorvastatin [Lipitor] 80 mg PO HS 04/05/15 [History] Diltiazem HCl [Diltiazem 24Hr Cd] 360 mg PO DAILY 04/05/15 [History] FLUoxetine HCl [PROzac] 40 mg PO DAILY 04/05/15 [History] Rivaroxaban [Xarelto] 20 mg PO DAILY 04/05/15 [History] Vit C/E/Zn/Coppr/Lutein/Zeaxan [Preservision Areds 2 Softgel] 1 cap PO DAILY 05/18/18 [History] Allergy/AdvReac Type Severity Reaction Status Date / Time metformin AdvReac Gastrointestinal Verified 05/18/18 19:23 Upset oxycodone [From Percocet] AdvReac Nausea Verified 10/06/14 10:03 Social History - Social History Social History: Pt , since 1960, and has an adult daughter and 3 grandchildren. 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 Stated she did everything for her adult son due to his significant physical and mental disabilities - passed 5 years ago of cancer. 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 Recall 2/3 words after min delay. Responses were slow at times and processing slow. Team notes difficulty with initiation and motivation and questions these may be vegetative signs of depression. She denied SI. Assessment & Plan - Prognosis Prognosis: Good - Treatment Plan Treatment Plan/Recommendations: Would benefit from therapy to develop and train coping strategies to manage mood and increase productive activity and purpose.Discussed evaluating medication effectiveness with physician and team. Next Session Date: 06/13/18 Procedures - Participants Therapy Participant: Patient - Session Time Session Start Time: 11:00 Session Stop Time: 11:30
[2018-06-06] MEDS: *HR* Rivaroxaban 10 MG TABLET PO SCH (17:10)
[2018-06-06] MEDS: Acetaminophen 325 MG TABLET PO PRN (21:00)
[2018-06-07] MEDS: Multivit/Ca/Min/Fe/FA 1 TAB TABLET PO SCH (08:51)
[2018-06-07] MEDS: Famotidine 20 MG TABLET PO SCH ×2 (08:51→20:59)
[2018-06-07] MEDS: Lactobacillus 1 EACH CAP.SPRINK PO SCH ×2 (08:51→20:59)
[2018-06-07] MEDS: Diltiazem CD (24hr) 180 MG CAPSULE PO SCH (08:51)
[2018-06-07] MEDS: Aspirin Enteric Coated 81 MG Tablet PO SCH (08:51)
[2018-06-07] MEDS: Ascorbic Acid 500 MG TABLET PO SCH ×2 (08:51→20:59)
[2018-06-07] MEDS: FLUoxetine 20 MG CAPSULE PO SCH (08:51)
[2018-06-07] MEDS: Cholecalciferol (D-3) 1,000 UNIT TABLET PO SCH (08:51)
[2018-06-07] MEDS: Leptospermum Honey Gel 44 ML TUBE TP SCH (08:52)
[2018-06-07] MEDS: Insulin LISPRO 300 UNITS/3 ML VIAL SQ SCH ×4 (08:52→21:00)
[2018-06-07] MEDS: levoFLOXacin 500 MG TABLET PO SCH (14:02)
--- NOTE | 2018-06-07 15:11 | Internal Med Progress Note ---
Date of Encounter: 06/07/18 Time of Encounter: 15:09 - Assessment and plan (1) Cerebrovascular accident (CVA) Current Visit: Yes Status: Acute Assessment and plan: No new neurological deficits. Continue PT and OT. Will follow progress. Follow up with neurologist as scheduled. 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 Pain controlled. Weight bearing as tolerated. Follow up with surgeon as scheduled. Qualifiers: Encounter type: subsequent encounter Fracture healing: with routine healing Qualified Code(s): S82.892D - Other fracture of left lower leg, subsequent encounter for closed fracture with routine healing (3) Diabetes Current Visit: Yes Status: Acute Assessment and plan: Controlled. Monitor fingerstick blood sugars. Will adjust coverage was sliding scale. Qualifiers: Diabetes mellitus type: type 2 Diabetes mellitus halfway insulin use: without halfway use Diabetes mellitus complication status: with unspecified complications Qualified Code(s): E11.8 - Type 2 diabetes mellitus with unspecified complications (4) Atrial fibrillation Current Visit: Yes Status: Chronic Assessment and plan: Rate and rhythm controlled. Continues xarelto. Qualifiers: Atrial fibrillation type: chronic Qualified Code(s): I48.2 - Chronic atrial fibrillation - Time Spent With Patient less than 15 minutes - Subjective Interval history: participating well with therapy. Propel self in wheelchair. Has been a mbulating with therapy. denies new neurological deficits, nausea, vomitting or diarrhea. last BM this am. denies fever, chill, SOB or chest pain. walking boot on left. maintaining appetite and hydration. - Constitutional Vitals: Temp Pulse Resp BP Pulse Ox 97.6 F 98 16 101/66 96 06/07/18 06:00 06/07/18 06:00 06/07/18 06:00 06/07/18 06:00 06/07/18 06:00 General appearance: Present: cooperative, A&O X 3, pleasant, no acute distress, answers questions appropriately - Head Head exam: Present: atraumatic, normocephalic - Eye Eye exam: Present: PERRL, conjuntiva pink, sclera anicteric Pupils: Present: PERRL - Neck Neck exam general surgery: Present: supple, trachea midline. Absent: lymphadenopathy - Respiratory Respiratory exam: Present: CTAB. Absent: accessory muscle use, rales, rhonchi, wheezes - Cardiovascular Cardiovascular exam: Present: RRR, +S1, +S2. Absent: diastolic murmur, gallop, rubs, systolic murmur - GI/Abdominal GI/Abdominal exam: Present: normal bowel sounds, soft, no peritoneal signs. Absent: distended, tenderness - Extremities Exam Extremities exam: Present: warm, radial pulses palpable and symmetrical. Absent: calf tenderness, cyanotic, pedal edema Additional comments: walking boot to left lower extremity - Neurological Exam Neurological exam: Present: CN II-XII intact, oriented X3, no focal deficits. Absent: pronater drift, facial droop, speech deficit - Skin Skin exam: Present: dry, intact Internal Medicine: Result - Labs CBC & Chem 7: 06/06/18 10:17 06/06/18 10:17 - ABG Interpretation ABG results: PT/INR, D-dimer PT 13.7 Seconds (9.4-12.1) H 05/21/18 06:35 Consult Discharge Plan - Plan Referrals: Carmelo Boudreaux MD [Primary Care Provider] -
[2018-06-07] MEDS: *HR* Rivaroxaban 10 MG TABLET PO SCH (17:58)
[2018-06-07] MEDS: Acetaminophen 325 MG TABLET PO PRN (21:00)
[2018-06-08] MEDS: Ascorbic Acid 500 MG TABLET PO SCH ×2 (08:12→21:52)
[2018-06-08] MEDS: Diltiazem CD (24hr) 180 MG CAPSULE PO SCH (08:12)
[2018-06-08] MEDS: Cholecalciferol (D-3) 1,000 UNIT TABLET PO SCH (08:13)
[2018-06-08] MEDS: Lactobacillus 1 EACH CAP.SPRINK PO SCH ×2 (08:13→21:51)
[2018-06-08] MEDS: Insulin LISPRO 300 UNITS/3 ML VIAL SQ SCH ×4 (08:13→21:51)
[2018-06-08] MEDS: Aspirin Enteric Coated 81 MG Tablet PO SCH (08:13)
[2018-06-08] MEDS: Famotidine 20 MG TABLET PO SCH ×2 (08:13→21:51)
[2018-06-08] MEDS: FLUoxetine 20 MG CAPSULE PO SCH (08:13)
[2018-06-08] MEDS: levoFLOXacin 500 MG TABLET PO SCH (08:13)
[2018-06-08] MEDS: Multivit/Ca/Min/Fe/FA 1 TAB TABLET PO SCH (08:13)
--- NOTE | 2018-06-08 10:27 | Internal Med Progress Note ---
Date of Encounter: 06/08/18 Time of Encounter: 09:50 - Assessment and plan (1) Cerebrovascular accident (CVA) Current Visit: Yes Status: Acute Assessment and plan: Patient continues to improve. She is under going therapies. We will continue to evaluate for safety. Qualifiers: CVA mechanism: embolism Precerebral and cerebral artery: middle cerebral artery Laterality of affected vessel: right Qualified Code(s): I63.411 - Cerebral infarction due to embolism of right middle cerebral artery (2) Atrial fibrillation Current Visit: Yes Status: Chronic Assessment and plan: Clinically stable. We will continue to monitor rate and she is on chronic anticoagulation. Qualifiers: Atrial fibrillation type: chronic Qualified Code(s): I48.2 - Chronic atrial fibrillation (3) Diabetes Current Visit: Yes Status: Chronic Assessment and plan: Control is fair. We will continue with current regimen and sliding scale. 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 Will continue to follow and may consider additional medication, early next week. Qualifiers: Depression Type: major depressive disorder Major depression recurrence: unspecified whether recurrent Active/Remission status: currently active Major depression episode severity: unspecified Qualified Code(s): F32.9 - Major depressive disorder, single episode, unspecified (5) Closed left ankle fracture Current Visit: Yes Status: Acute Assessment and plan: Apparently, doing well. No pain or other symptoms. Wears boot at all times. Qualifiers: Encounter type: subsequent encounter Fracture healing: with routine healing Qualified Code(s): S82.892D - Other fracture of left lower leg, subsequent encounter for closed fracture with routine healing - Subjective Interval history: Patient is without problems. She again seems to have unacceptable mood. Will follow this. No bowel or bladder complaints. Patient has no complaint of chest discomfort, dyspnea, orthopnea, palpitations, nausea or vomiting, constipation or diarrhea, other changes in bowel habits, difficulty with urination, rash or itching, or other new complaints, except as mentioned above. Review of systems is otherwise negative. I discussed management of her care with nursing staff. - Constitutional Vitals: Temp Pulse Resp BP Pulse Ox 97.7 F 84 16 138/85 96 06/08/18 07:00 06/08/18 07:00 06/08/18 07:00 06/08/18 07:00 06/08/18 07:00 Exam: Examination: (Except as mentioned above): General: In no apparent distress. Alert and oriented 3. Nondiaphoretic. Head: Atraumatic and normocephalic. Respiratory: No use of accessory muscles. Lungs are clear throughout. Normal airflow. Cardiovascular: Irregularly irregular consistent with atrial fibrillation rate is controlled, without murmur appreciated. Abdomen: Bowel sounds are normal. No hepatosplenomegaly mass or tenderness appreciated. Obese and therefore difficult to palpate deeply. Patient is examined upright in chair and this also limits exam. Extremities: No cyanosis clubbing or edema. Skin: Warm and non-diaphoretic with no new lesions noted. Internal Medicine: Result - Labs CBC & Chem 7: 06/06/18 10:17 06/06/18 10:17 - ABG Interpretation ABG results: PT/INR, D-dimer PT 13.7 Seconds (9.4-12.1) H 05/21/18 06:35 Consult Discharge Plan - Plan Referrals: Carmelo Boudreaux MD [Primary Care Provider] -
[2018-06-08] MEDS: *HR* Rivaroxaban 10 MG TABLET PO SCH (17:59)
[2018-06-08] MEDS: Acetaminophen 325 MG TABLET PO PRN (21:52)
[2018-06-09] MEDS: Insulin LISPRO 300 UNITS/3 ML VIAL SQ SCH ×4 (09:53→20:40)
[2018-06-09] MEDS: levoFLOXacin 500 MG TABLET PO SCH (09:53)
[2018-06-09] MEDS: Multivit/Ca/Min/Fe/FA 1 TAB TABLET PO SCH (09:53)
[2018-06-09] MEDS: Lactobacillus 1 EACH CAP.SPRINK PO SCH ×2 (09:54→20:39)
[2018-06-09] MEDS: Diltiazem CD (24hr) 180 MG CAPSULE PO SCH (09:54)
[2018-06-09] MEDS: Aspirin Enteric Coated 81 MG Tablet PO SCH (09:54)
[2018-06-09] MEDS: Famotidine 20 MG TABLET PO SCH ×2 (09:54→20:39)
[2018-06-09] MEDS: FLUoxetine 20 MG CAPSULE PO SCH (09:54)
[2018-06-09] MEDS: Cholecalciferol (D-3) 1,000 UNIT TABLET PO SCH (09:54)
[2018-06-09] MEDS: Ascorbic Acid 500 MG TABLET PO SCH ×2 (09:54→20:39)
--- NOTE | 2018-06-09 10:50 | Internal Med Progress Note ---
Date of Encounter: 06/09/18 Time of Encounter: 10:48 - Assessment and plan (1) Cerebrovascular accident (CVA) Current Visit: Yes Status: Acute Assessment and plan: She continues to participate in therapies. Will follow as planned. Qualifiers: CVA mechanism: embolism Precerebral and cerebral artery: middle cerebral artery Laterality of affected vessel: right Qualified Code(s): I63.411 - Cerebral infarction due to embolism of right middle cerebral artery (2) Atrial fibrillation Current Visit: Yes Status: Chronic Assessment and plan: Rate controlled on chronic anticoagulation, as before. Qualifiers: Atrial fibrillation type: chronic Qualified Code(s): I48.2 - Chronic atrial fibrillation (3) Diabetes Current Visit: Yes Status: Chronic Assessment and plan: Acceptable control and will follow with sliding scale insulin. 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 Qualifiers: Depression Type: major depressive disorder Major depression recurrence: unspecified whether recurrent Active/Remission status: currently active Major depression episode severity: unspecified Qualified Code(s): F32.9 - Major depressive disorder, single episode, unspecified (5) Closed left ankle fracture Current Visit: Yes Status: Acute Assessment and plan: Clinically stable and wearing boot, chronically. Qualifiers: Encounter type: subsequent encounter Fracture healing: with routine healing Qualified Code(s): S82.892D - Other fracture of left lower leg, subsequent encounter for closed fracture with routine healing - Subjective Interval history: Patient is feeling fatigued after therapy. Otherwise, she is without complaint. Patient has no complaint of chest discomfort, dyspnea, orthopnea, palpitations, nausea or vomiting, constipation or diarrhea, other changes in bowel habits, difficulty with urination, rash or itching, or other new complaints, except as mentioned above. Review of systems is otherwise negative. I discussed management of her care with nursing staff. - Constitutional Vitals: Temp Pulse Resp BP Pulse Ox 98.4 F 68 16 140/78 95 06/09/18 07:00 06/09/18 07:00 06/09/18 07:00 06/09/18 07:00 06/09/18 07:00 Exam: Examination: (Except as mentioned above): General: In no apparent distress. Alert and oriented 3. Nondiaphoretic. Head: Atraumatic and normocephalic. Respiratory: No use of accessory muscles. Lungs are clear throughout. Normal airflow. Cardiovascular: Irregularly irregular with rate controlled, without murmur appreciated. Abdomen: Bowel sounds are normal. No hepatosplenomegaly mass or tenderness appreciated. Obese and therefore difficult to palpate deeply. Patient is examined upright in chair and this also limits exam. Extremities: No cyanosis clubbing or edema. Skin: Warm and non-diaphoretic with no new lesions noted. Internal Medicine: Result - Labs CBC & Chem 7: 06/06/18 10:17 06/06/18 10:17 - ABG Interpretation ABG results: PT/INR, D-dimer PT 13.7 Seconds (9.4-12.1) H 05/21/18 06:35 Consult Discharge Plan - Plan Referrals: Carmelo Boudreaux MD [Primary Care Provider] -
[2018-06-09] MEDS: *HR* Rivaroxaban 10 MG TABLET PO SCH (17:21)
[2018-06-10] MEDS: Insulin LISPRO 300 UNITS/3 ML VIAL SQ SCH ×4 (08:28→20:02)
[2018-06-10] MEDS: Aspirin Enteric Coated 81 MG Tablet PO SCH (08:30)
[2018-06-10] MEDS: Lactobacillus 1 EACH CAP.SPRINK PO SCH ×2 (08:30→20:02)
[2018-06-10] MEDS: Famotidine 20 MG TABLET PO SCH ×2 (08:30→20:01)
[2018-06-10] MEDS: FLUoxetine 20 MG CAPSULE PO SCH (08:30)
[2018-06-10] MEDS: Cholecalciferol (D-3) 1,000 UNIT TABLET PO SCH (08:31)
[2018-06-10] MEDS: Diltiazem CD (24hr) 180 MG CAPSULE PO SCH (08:31)
[2018-06-10] MEDS: Ascorbic Acid 500 MG TABLET PO SCH ×2 (08:31→20:01)
[2018-06-10] MEDS: Multivit/Ca/Min/Fe/FA 1 TAB TABLET PO SCH (08:31)
[2018-06-10] MEDS: levoFLOXacin 500 MG TABLET PO SCH (08:31)
--- NOTE | 2018-06-10 14:41 | Internal Med Progress Note ---
Date of Encounter: 06/10/18 Time of Encounter: 14:39 - Assessment and plan (1) Cerebrovascular accident (CVA) Current Visit: Yes Status: Acute Assessment and plan: She continues to participate in therapies. Will follow as planned. Qualifiers: CVA mechanism: embolism Precerebral and cerebral artery: middle cerebral artery Laterality of affected vessel: right Qualified Code(s): I63.411 - Cerebral infarction due to embolism of right middle cerebral artery (2) Atrial fibrillation Current Visit: Yes Status: Chronic Assessment and plan: Controlled rate and on anticoagulation, chronically. Qualifiers: Atrial fibrillation type: chronic Qualified Code(s): I48.2 - Chronic atrial fibrillation (3) Diabetes Current Visit: Yes Status: Chronic Assessment and plan: Adequately controlled on sliding scale insulin. We will continue as planned. 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 Qualifiers: Depression Type: major depressive disorder Major depression recurrence: unspecified whether recurrent Active/Remission status: currently active Major depression episode severity: unspecified Qualified Code(s): F32.9 - Major depressive disorder, single episode, unspecified (5) Closed left ankle fracture Current Visit: Yes Status: Acute Assessment and plan: This seems to be improving nicely. Qualifiers: Encounter type: subsequent encounter Fracture healing: with routine healing Qualified Code(s): S82.892D - Other fracture of left lower leg, subsequent encounter for closed fracture with routine healing - Subjective Interval history: The patient is resting comfortably and enjoying her day off therapies. She denies complaints. Bowels have been moving well. She has no other problems. Patient has no complaint of chest discomfort, dyspnea, orthopnea, palpitations, nausea or vomiting, constipation or diarrhea, other changes in bowel habits, difficulty with urination, rash or itching, or other new complaints, except as mentioned above. Review of systems is otherwise negative. I discussed management of her care with nursing staff. - Constitutional Vitals: Temp Pulse Resp BP Pulse Ox 98.6 F 76 14 113/53 93 06/10/18 07:00 06/10/18 07:00 06/10/18 07:00 06/10/18 07:00 06/10/18 07:00 Exam: Examination: (Except as mentioned above): General: In no apparent distress. Alert and oriented 3. Nondiaphoretic. Head: Atraumatic and normocephalic. Respiratory: No use of accessory muscles. Lungs are clear throughout. Normal airflow. Cardiovascular: Irregularly irregular consistent with atrial fib, rate controlled, without murmur appreciated. Abdomen: Bowel sounds are normal. No hepatosplenomegaly mass or tenderness appreciated. Obese and therefore difficult to palpate deeply. Extremities: No cyanosis clubbing or edema. Of note, she has absolutely no increased edema when she is not wearing her boot. Skin: Warm and non-diaphoretic with no new lesions noted. Internal Medicine: Result - Labs CBC & Chem 7: 06/06/18 10:17 06/06/18 10:17 - ABG Interpretation ABG results: PT/INR, D-dimer PT 13.7 Seconds (9.4-12.1) H 05/21/18 06:35 Consult Discharge Plan - Plan Referrals: Carmelo Boudreaux MD [Primary Care Provider] -
[2018-06-10] MEDS: *HR* Rivaroxaban 10 MG TABLET PO SCH (16:50)
[2018-06-11 06:09] LABS: Basophils % 0.4 %; Eosinophils # 0.2 K/mcL (0.0-0.6); Eosinophils % 3.1 %; Hematocrit 35.9 % (35.3-44.9); Hemoglobin 11.6 g/dL (11.5-15.4); Immature Granulocytes % 0.3 % (0-4); Lymphocytes # 1.5 K/mcL (0.6-4.6); Lymphocytes % 22.4 %; Mean Corpuscular HGB Conc 32.3 g/dL (31.6-35.5); Mean Corpuscular Hemoglobin 30.4 pg (28.0-33.3); Mean Corpuscular Volume 94.2 fL (83.0-100.0); Mean Platelet Volume 9.3 fL (9.4-12.4); Monocytes # 0.8 K/mcL (0.0-1.3); Monocytes % 11.4 %; Neutrophils # 4.2 K/mcL (1.6-8.9); Platelet Count 265 K/mcL (140-400); Red Blood Count 3.81 M/mcL (3.82-4.97); Red Cell Distribution Width 14.9 % (11.5-14.5); Segmented Neutrophils % 62.4 %
[2018-06-11 06:21] LABS: Alanine Aminotransferase 28 Units/L (7-52); Albumin 3.6 g/dL (3.5-5.7); Albumin/Globulin Ratio 1.6 (1.1-2.2); Alkaline Phosphatase 85 Units/L (34-104); Aspartate Amino Transferase 19 Units/L (13-39); BUN/Creatinine Ratio 19 (6-26); Bilirubin,Total 0.8 mg/dL (0.3-1.0); Blood Urea Nitrogen 15 mg/dL (8-23); Calcium 8.8 mg/dL (8.6-10.3); Carbon Dioxide 26 mEq/L (23-29); Chloride 106 mEq/L (98-107); Globulin 2.3 g/dL (2.4-3.5); Glucose 142 mg/dL (70-105); Osmolality,Calculated 293 (280-300); Potassium 3.7 mEq/L (3.5-5.1); Sodium 140 mEq/L (136-145); Total Protein 5.9 g/dL (6.4-8.9); eGFR For Non-African Americans > 60 (> 60)
[2018-06-11] MEDS: Ascorbic Acid 500 MG TABLET PO SCH ×2 (08:34→21:20)
[2018-06-11] MEDS: Aspirin Enteric Coated 81 MG Tablet PO SCH (08:34)
[2018-06-11] MEDS: Multivit/Ca/Min/Fe/FA 1 TAB TABLET PO SCH (08:34)
[2018-06-11] MEDS: Famotidine 20 MG TABLET PO SCH ×2 (08:34→21:20)
[2018-06-11] MEDS: Diltiazem CD (24hr) 180 MG CAPSULE PO SCH (08:34)
[2018-06-11] MEDS: FLUoxetine 20 MG CAPSULE PO SCH (08:34)
[2018-06-11] MEDS: levoFLOXacin 500 MG TABLET PO SCH (08:34)
[2018-06-11] MEDS: Cholecalciferol (D-3) 1,000 UNIT TABLET PO SCH (08:35)
[2018-06-11] MEDS: Lactobacillus 1 EACH CAP.SPRINK PO SCH ×2 (08:35→21:19)
[2018-06-11] MEDS: Insulin LISPRO 300 UNITS/3 ML VIAL SQ SCH ×4 (08:35→21:20)
--- NOTE | 2018-06-11 10:12 | Internal Med Progress Note ---
Date of Encounter: 06/11/18 Time of Encounter: 10:10 - Assessment and plan (1) Cerebrovascular accident (CVA) Current Visit: Yes Status: Acute Assessment and plan: No new neurological deficits. Continue PT and OT. Will follow progress. Follow up with neurologist as scheduled. 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 Pain controlled. Weight bearing as tolerated. Follow up with surgeon as scheduled. Qualifiers: Encounter type: subsequent encounter Fracture healing: with routine healing Qualified Code(s): S82.892D - Other fracture of left lower leg, subsequent encounter for closed fracture with routine healing (3) Diabetes Current Visit: Yes Status: Acute Assessment and plan: Controlled. Monitor fingerstick blood sugars. Will adjust coverage was sliding scale. Qualifiers: Diabetes mellitus type: type 2 Diabetes mellitus detention insulin use: without detention use Diabetes mellitus complication status: with unspecified complications Qualified Code(s): E11.8 - Type 2 diabetes mellitus with unspecified complications (4) Atrial fibrillation Current Visit: Yes Status: Chronic Assessment and plan: Rate and rhythm controlled. Continues xarelto. Qualifiers: Atrial fibrillation type: chronic Qualified Code(s): I48.2 - Chronic atrial fibrillation - Time Spent With Patient less than 15 minutes - Subjective Interval history: participating well with therapy. Propels self in wheelchair. Has been ambulating with walker with therapy. denies new neurological deficits, nausea, vomitting or diarrhea. last BM this am. denies fever, chill, SOB or chest pain. walking boot on left. maintaining appetite and hydration. - Constitutional Vitals: Temp Pulse Resp BP Pulse Ox 98.5 F 72 16 131/84 95 06/11/18 08:06 06/11/18 08:06 06/11/18 08:06 06/11/18 08:06 06/11/18 08:06 General appearance: Present: cooperative, A&O X 3, pleasant, no acute distress, answers questions appropriately - Head Head exam: Present: atraumatic, normocephalic - Eye Eye exam: Present: PERRL, conjuntiva pink, sclera anicteric Pupils: Present: PERRL - Neck Neck exam general surgery: Present: supple, trachea midline. Absent: lymphadenopathy - Respiratory Respiratory exam: Present: CTAB. Absent: accessory muscle use, rales, rhonchi, wheezes - Cardiovascular Cardiovascular exam: Present: RRR, +S1, +S2. Absent: diastolic murmur, gallop, rubs, systolic murmur - GI/Abdominal GI/Abdominal exam: Present: normal bowel sounds, soft, no peritoneal signs. Absent: distended, tenderness - Extremities Exam Extremities exam: Present: warm, radial pulses palpable and symmetrical. Absent: calf tenderness, cyanotic, pedal edema Additional comments: walking boot on LLE - Neurological Exam Neurological exam: Present: CN II-XII intact, oriented X3, no focal deficits. A bsent: pronater drift, facial droop, speech deficit - Skin Skin exam: Present: dry, intact Internal Medicine: Result - Labs CBC & Chem 7: 06/11/18 05:45 06/11/18 05:45 Labs: Short CBC 06/11/18 Range/Units 05:45 WBC 6.7 (4.3-11.1) K/mcL Hgb 11.6 (11.5-15.4) g/dL Hct 35.9 (35.3-44.9) % Plt Count 265 (140-400) K/mcL Neutrophils # 4.2 (1.6-8.9) K/mcL BMP 06/11/18 05:45 Sodium 140 Potassium 3.7 Chloride 106 Carbon Dioxide 26 BUN 15 Creatinine 0.78 Glucose 142 H Calcium 8.8 Liver Function 06/11/18 Range/Units 05:45 Total Bilirubin 0.8 (0.3-1.0) mg/dL AST 19 (13-39) Units/L ALT 28 (7-52) Units/L Alkaline Phosphatase 85 (34-104) Units/L Albumin 3.6 (3.5-5.7) g/dL - ABG Interpretation ABG results: PT/INR, D-dimer PT 13.7 Seconds (9.4-12.1) H 05/21/18 06:35 Consult Discharge Plan - Plan Referrals: Carmelo Boudreaux MD [Primary Care Provider] -
[2018-06-11] MEDS: *HR* Rivaroxaban 10 MG TABLET PO SCH (17:21)
[2018-06-11] MEDS: Acetaminophen 325 MG TABLET PO PRN (21:20)
[2018-06-12] MEDS: Multivit/Ca/Min/Fe/FA 1 TAB TABLET PO SCH (08:14)
[2018-06-12] MEDS: Cholecalciferol (D-3) 1,000 UNIT TABLET PO SCH (08:14)
[2018-06-12] MEDS: FLUoxetine 20 MG CAPSULE PO SCH (08:15)
[2018-06-12] MEDS: Lactobacillus 1 EACH CAP.SPRINK PO SCH ×2 (08:15→20:28)
[2018-06-12] MEDS: Famotidine 20 MG TABLET PO SCH ×2 (08:15→20:29)
[2018-06-12] MEDS: levoFLOXacin 500 MG TABLET PO SCH (08:15)
[2018-06-12] MEDS: Ascorbic Acid 500 MG TABLET PO SCH ×2 (08:15→20:29)
[2018-06-12] MEDS: Insulin LISPRO 300 UNITS/3 ML VIAL SQ SCH ×4 (08:15→20:31)
[2018-06-12] MEDS: Diltiazem CD (24hr) 180 MG CAPSULE PO SCH (08:15)
[2018-06-12] MEDS: Aspirin Enteric Coated 81 MG Tablet PO SCH (08:15)
[2018-06-12] MEDS: Acetaminophen 325 MG TABLET PO PRN (08:21)
--- NOTE | 2018-06-12 09:51 | Internal Med Progress Note ---
Date of Encounter: 06/12/18 Time of Encounter: 09:49 - Assessment and plan (1) Cerebrovascular accident (CVA) Current Visit: Yes Status: Acute Assessment and plan: No new neurological deficits. Continue PT and OT. Will follow progress. Follow up with neurologist as scheduled. 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 Pain controlled. Weight bearing as tolerated. Follow up with surgeon as scheduled. Qualifiers: Encounter type: subsequent encounter Fracture healing: with routine healing Qualified Code(s): S82.892D - Other fracture of left lower leg, subsequent encounter for closed fracture with routine healing (3) Diabetes Current Visit: Yes Status: Acute Assessment and plan: Controlled. Monitor fingerstick blood sugars. Will adjust coverage was sliding scale. Qualifiers: Diabetes mellitus type: type 2 Diabetes mellitus intermediate insulin use: without intermediate use Diabetes mellitus complication status: with unspecified complications Qualified Code(s): E11.8 - Type 2 diabetes mellitus with unspecified complications (4) Atrial fibrillation Current Visit: Yes Status: Chronic Assessment and plan: Rate and rhythm controlled. Continues xarelto. Qualifiers: Atrial fibrillation type: chronic Qualified Code(s): I48.2 - Chronic atrial fibrillation - Time Spent With Patient less than 15 minutes - Subjective Interval history: participating well with therapy. Propels self in wheelchair. Ambulated 175 feet with Walker was standby assist with therapy. denies new neurological deficits, nausea, vomitting or diarrhea. last BM this am. denies fever, chill, SOB or chest pain. walking boot on left. maintaining appetite and hydration. - Constitutional Vitals: Temp Pulse Resp BP Pulse Ox 97.8 F 87 16 94/53 95 06/12/18 07:00 06/12/18 07:00 06/12/18 07:00 06/12/18 07:00 06/12/18 07:00 General appearance: Present: cooperative, A&O X 3, pleasant, no acute distress, answers questions appropriately - Head Head exam: Present: atraumatic, normocephalic - Eye Eye exam: Present: PERRL, conjuntiva pink, sclera anicteric Pupils: Present: PERRL - Neck Neck exam general surgery: Present: supple, trachea midline. Absent: lymphadenopathy - Respiratory Respiratory exam: Present: CTAB. Absent: accessory muscle use, rales, rhonchi, wheezes - Cardiovascular Cardiovascular exam: Present: irregular rhythm, +S1, +S2. Absent: diastolic murmur, gallop, rubs, systolic murmur - GI/Abdominal GI/Abdominal exam: Present: normal bowel sounds, soft, no peritoneal signs. Absent: distended, tenderness - Extremities Exam Extremities exam: Present: warm, radial pulses palpable and symmetrical. Absent: calf tenderness, cyanotic, pedal edema Additional comments: Walking boot on left lower extremity - Neurological Exam Neurological exam: Present: CN II-XII intact, oriented X3, no focal deficits. Absent: pronater drift, facial droop, speech deficit - Skin Skin exam: Present: dry, intact Internal Medicine: Result - Labs CBC & Chem 7: 06/11/18 05:45 06/11/18 05:45 - ABG Interpretation ABG results: PT/INR, D-dimer PT 13.7 Seconds (9.4-12.1) H 05/21/18 06:35 Consult Discharge Plan - Plan Referrals: Carmelo Boudreaux MD [Primary Care Provider] -
[2018-06-12] MEDS: *HR* Rivaroxaban 10 MG TABLET PO SCH (16:54)
--- NOTE | 2018-06-13 09:17 | Internal Med Progress Note ---
Date of Encounter: 06/13/18 Time of Encounter: 09:14 - Assessment and plan (1) Cerebrovascular accident (CVA) Current Visit: Yes Status: Acute Assessment and plan: Patient was recent history of a right ischemic CVA with improving left hemiparesis. Patient's muscle strength left extremities continues show mild weakness with left extremities 4+/5 and right extremities have 5/5. Patient to continue with physical therapy and mobilize. Vital signs stable. We will continue with current medications, to include heparin. 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 Surgical incision currently is covered with a Tigre wrap which is dry and intact. No edema noted. Distal CV checks normal. Left leg walking boot with patient able to have TDWB. Pain is been normal with patient stating current medications have been effective. We will continue with current therapy. Qualifiers: Encounter type: subsequent encounter Fracture healing: with routine healing Qualified Code(s): S82.892D - Other fracture of left lower leg, subsequent encounter for closed fracture with routine healing (3) Atrial fibrillation Current Visit: Yes Status: Chronic Assessment and plan: No acute issues during her stay here. Heart rate remains irregular with ventricular rate controlled less than 100. Vital signs are stable. Patient denies any palpitations or chest discomforts. We will continue on current medications Qualifiers: Atrial fibrillation type: chronic Qualified Code(s): I48.2 - Chronic atrial fibrillation (4) Diabetes Current Visit: Yes Status: Acute Assessment and plan: No acute issues. Patient's glucose has been well-controlled with most readings less than 170. We will continue with sliding scale coverage continue to monitor Qualifiers: Diabetes mellitus type: type 2 Diabetes mellitus usp insulin use: without intermediate school teacher use Diabetes mellitus complication status: with unspecified complications Qualified Code(s): E11.8 - Type 2 diabetes mellitus with unspecified complications - Subjective Interval history: Patient appears relaxed and currently denies any discomforts or shortness of breath. Denies any chest palpitations. She states she has not had any pain to her left ankle surgical site, which remains with TIGRE type dressiing. Patient continues with slight left hemiparesis and states that she feels her strength continues to improve since her admission to rehab. - Constitutional Vitals: Temp Pulse Resp BP Pulse Ox 97.7 F 85 14 102/60 95 06/12/18 19:47 06/12/18 19:47 06/12/18 19:47 06/12/18 19:47 06/12/18 19:47 General appearance: Present: cooperative, A&O X 3, pleasant, no acute distress, answers questions appropriately - Head Head exam: Present: atraumatic, normocephalic - Eye Eye exam: Present: PERRL, conjuntiva pink, sclera anicteric Pupils: Present: PERRL - Neck Neck exam general surgery: Present: supple, trachea midline. Absent: lymphadenopathy - Respiratory Respiratory exam: Present: decreased breath sounds, CTAB. Absent: accessory muscle use, rales, rhonchi, wheezes - Cardiovascular Cardiovascular exam: Present: RRR, +S1, +S2. Absent: diastolic murmur, gallop, rubs, systolic murmur - GI/Abdominal GI/Abdominal exam: Present: normal bowel sounds, soft, no peritoneal signs. Absent: distended, tenderness - Extremities Exam Extremities exam: Present: warm, radial pulses palpable and symmetrical. Absent: calf tenderness, cyanotic, pedal edema Additional comments: Patient continues with Tigre dressing to her surgical site of left ankle. Left foot and leg with orthopedic walking boot. - Neurological Exam Neurological exam: Present: CN II-XII intact, oriented X3. Absent: pronater drift, facial droop, speech deficit Additional comments: Patient continues to show very slight left hemiparesis with muscle strength on left extremities at 4+/5 and right extremities at 5/5. No other acute focal deficits noted on exam - Skin Skin exam: Present: dry, intact Internal Medicine: Result - Labs CBC & Chem 7: 06/11/18 05:45 06/11/18 05:45 - ABG Interpretation ABG results: PT/INR, D-dimer PT 13.7 Seconds (9.4-12.1) H 05/21/18 06:35 Consult Discharge Plan - Plan Referrals: Carmelo Boudreaux MD [Primary Care Provider] -
[2018-06-13] MEDS: Multivit/Ca/Min/Fe/FA 1 TAB TABLET PO SCH (09:31)
[2018-06-13] MEDS: FLUoxetine 20 MG CAPSULE PO SCH (09:31)
[2018-06-13] MEDS: Diltiazem CD (24hr) 180 MG CAPSULE PO SCH (09:31)
[2018-06-13] MEDS: Acetaminophen 325 MG TABLET PO PRN (09:31)
[2018-06-13] MEDS: Lactobacillus 1 EACH CAP.SPRINK PO SCH ×2 (09:31→21:10)
[2018-06-13] MEDS: levoFLOXacin 500 MG TABLET PO SCH (09:31)
[2018-06-13] MEDS: Famotidine 20 MG TABLET PO SCH ×2 (09:31→21:12)
[2018-06-13] MEDS: Insulin LISPRO 300 UNITS/3 ML VIAL SQ SCH ×4 (09:32→21:14)
[2018-06-13] MEDS: Aspirin Enteric Coated 81 MG Tablet PO SCH (09:32)
[2018-06-13] MEDS: Ascorbic Acid 500 MG TABLET PO SCH ×2 (09:32→21:12)
[2018-06-13] MEDS: Cholecalciferol (D-3) 1,000 UNIT TABLET PO SCH (09:32)
--- NOTE | 2018-06-13 14:52 | Rehab Psychology Progress Note ---
Date of Encounter: 06/13/18 Time of Encounter: 02:00 Subjective - Patient Report Patient Report: Feeling better. Mood improved and discussed continued concerns with initiation and reaction time.Excited to go home and upcoming safety eval at home. Objective - WHODAS Functional Impairment Concentration, Problem-solving, Communication: Mild Social Functioning: None Community Involvement/Hobbies: Mild - Comments Functional Status Comments: Not going to be driving when released but OK with that. Has friends visiting and wants to get back involved with volunteer activities once DCed. - Mental Status Mental Status Changes: Conversation good -initiation and maintaining topic. Assessment and Plan - Diagnosis (1) Adjustment disorder with depressed mood - Response to Treatment Response to Treatment: Improved - Prognosis Prognosis: Good - Treatment Plan Treatment Plan Recommendations: Change Treatment Plan/Goals Changes in Treatment Plan Goals: Pt seems to be doing well with sleep and appetite. Mood improved and ready to get back to life. Note increased awareness of weaknesses and the need for strategy use. Procedures - Intervention Interventions: Cognitive/Behavioral Therapy - Modality Modality: Psychotherapy 30 minutes - Participants Therapy Participant: Patient - Session Time Session Start Time: 02:00 Session Stop Time: 02:30
[2018-06-13] MEDS: *HR* Rivaroxaban 10 MG TABLET PO SCH (17:53)
[2018-06-14] MEDS: Acetaminophen 325 MG TABLET PO PRN ×2 (08:29→21:13)
[2018-06-14] MEDS: Ascorbic Acid 500 MG TABLET PO SCH ×2 (08:30→21:12)
[2018-06-14] MEDS: levoFLOXacin 500 MG TABLET PO SCH (08:30)
[2018-06-14] MEDS: Aspirin Enteric Coated 81 MG Tablet PO SCH (08:30)
[2018-06-14] MEDS: Lactobacillus 1 EACH CAP.SPRINK PO SCH ×2 (08:30→21:12)
[2018-06-14] MEDS: Multivit/Ca/Min/Fe/FA 1 TAB TABLET PO SCH (08:30)
[2018-06-14] MEDS: FLUoxetine 20 MG CAPSULE PO SCH (08:30)
[2018-06-14] MEDS: Famotidine 20 MG TABLET PO SCH ×2 (08:30→21:12)
[2018-06-14] MEDS: Cholecalciferol (D-3) 1,000 UNIT TABLET PO SCH (08:30)
[2018-06-14] MEDS: Diltiazem CD (24hr) 180 MG CAPSULE PO SCH (08:30)
[2018-06-14] MEDS: Insulin LISPRO 300 UNITS/3 ML VIAL SQ SCH ×4 (08:35→21:12)
--- NOTE | 2018-06-14 10:15 | Internal Med Progress Note ---
Date of Encounter: 06/14/18 Time of Encounter: 10:12 - Assessment and plan (1) Cerebrovascular accident (CVA) Current Visit: Yes Status: Acute Assessment and plan: Patient was recent history of a right ischemic CVA with improving left hemiparesis and continues to show left hand 5 motor deficit. Patient's muscle strength left extremities continues show mild weakness with left extremities. Patient to continue with physical therapy and mobilize. Vital signs stable. We will continue with current medications, to include heparin. Qualifiers: CVA mechanism: embolism Precerebral and cerebral artery: middle cerebral artery Laterality of affected vessel: right Qualified Code(s): I63.411 - Cerebral infarction due to embolism of right middle cerebral artery (2) Closed left ankle fracture Current Visit: Yes Status: Acute Assessment and plan: Patient with a left ankle fracture with ORIF that was performed during her [facility] admission for her CVA. Surgical incision currently is covered with a Tigre wrap which is dry and intact. No edema noted. Distal CV checks normal. Left leg walking boot with patient able to have TDWB. Pain is been normal with patient stating current medications have been effective. We will continue with current therapy. Qualifiers: Encounter type: subsequent encounter Fracture healing: with routine healing Qualified Code(s): S82.892D - Other fracture of left lower leg, subsequent encounter for closed fracture with routine healing (3) Atrial fibrillation Current Visit: Yes Status: Chronic Assessment and plan: No acute issues during her stay here. Heart rate remains irregular with ventricular rate controlled less than 100. Vital signs are stable. Patient denies any palpitations or chest discomforts. We will continue on current medications Qualifiers: Atrial fibrillation type: chronic Qualified Code(s): I48.2 - Chronic atrial fibrillation (4) Diabetes Current Visit: Yes Status: Acute Assessment and plan: No acute issues. Patient's glucose has been well-controlled with most readings less than 170. We will continue with sliding scale coverage continue to monitor Qualifiers: Diabetes mellitus type: type 2 Diabetes mellitus mcfp insulin use: without mcfp use Diabetes mellitus complication status: with unspecified complications Qualified Code(s): E11.8 - Type 2 diabetes mellitus with unspecified complications - Time Spent With Patient less than 15 minutes - Subjective Interval history: Patient appears relaxed and currently denies any discomforts or shortness of breath. Denies any chest palpitations. She states she has not had any pain to her left ankle surgical site, which remains with TIGRE type dressing. Patient continues with slight left hemiparesis and states that she feels her strength continues to improve since her admission to rehab. - Constitutional Vitals: Temp Pulse Resp BP Pulse Ox 97.9 F 81 18 96/62 96 06/14/18 07:00 06/14/18 07:00 06/14/18 07:00 06/14/18 07:00 06/14/18 07:00 General appearance: Present: cooperative, A&O X 3, pleasant, no acute distress, answers questions appropriately - Head Head exam: Present: atraumatic, normocephalic - Eye Eye exam: Present: PERRL, conjuntiva pink, sclera anicteric Pupils: Present: PERRL - Neck Neck exam general surgery: Present: supple, trachea midline. Absent: lymphadenopathy - Respiratory Respiratory exam: Present: CTAB. Absent: accessory muscle use, rales, rhonchi, wheezes - Cardiovascular Cardiovascular exam: Present: RRR, +S1, +S2. Absent: diastolic murmur, gallop, rubs, systolic murmur - GI/Abdominal GI/Abdominal exam: Present: normal bowel sounds, soft, no peritoneal signs. Absent: distended, tenderness - Extremities Exam Extremities exam: Present: warm, radial pulses palpable and symmetrical. Absent: calf tenderness, cyanotic, pedal edema Additional comments: Left ankle and foot with Tigre wrap dressing remains dry and intact. Patient continues with left orthopedic walking boot in place - Neurological Exam Neurological exam: Present: CN II-XII intact, oriented X3. Absent: pronater drift, facial droop, speech deficit Additional comments: Patient continues with very slight left hemiparesis. Patient continues to have fine motor deficit to left hand - Skin Skin exam: Present: dry, intact Internal Medicine: Result - Labs CBC & Chem 7: 06/11/18 05:45 06/11/18 05:45 - ABG Interpretation ABG results: PT/INR, D-dimer PT 13.7 Seconds (9.4-12.1) H 05/21/18 06:35 Consult Discharge Plan - Plan Referrals: Carmelo Boudreaux MD [Primary Care Provider] -
[2018-06-14] MEDS: *HR* Rivaroxaban 10 MG TABLET PO SCH (17:31)
[2018-06-15] MEDS: Insulin LISPRO 300 UNITS/3 ML VIAL SQ SCH ×4 (08:26→21:08)
[2018-06-15] MEDS: Multivit/Ca/Min/Fe/FA 1 TAB TABLET PO SCH (08:27)
[2018-06-15] MEDS: Ascorbic Acid 500 MG TABLET PO SCH ×2 (08:27→20:25)
[2018-06-15] MEDS: Aspirin Enteric Coated 81 MG Tablet PO SCH (08:27)
[2018-06-15] MEDS: Lactobacillus 1 EACH CAP.SPRINK PO SCH ×2 (08:27→20:23)
[2018-06-15] MEDS: FLUoxetine 20 MG CAPSULE PO SCH (08:27)
[2018-06-15] MEDS: Diltiazem CD (24hr) 180 MG CAPSULE PO SCH (08:27)
[2018-06-15] MEDS: Cholecalciferol (D-3) 1,000 UNIT TABLET PO SCH (08:27)
[2018-06-15] MEDS: Famotidine 20 MG TABLET PO SCH ×2 (08:27→20:24)
[2018-06-15] MEDS: levoFLOXacin 500 MG TABLET PO SCH (08:27)
[2018-06-15] MEDS: Acetaminophen 325 MG TABLET PO PRN ×2 (09:55→20:27)
[2018-06-15] MEDS: *HR* Rivaroxaban 10 MG TABLET PO SCH (16:25)
[2018-06-16] MEDS: Diltiazem CD (24hr) 180 MG CAPSULE PO SCH (08:29)
[2018-06-16] MEDS: Cholecalciferol (D-3) 1,000 UNIT TABLET PO SCH (08:30)
[2018-06-16] MEDS: Lactobacillus 1 EACH CAP.SPRINK PO SCH ×2 (08:30→20:55)
[2018-06-16] MEDS: Multivit/Ca/Min/Fe/FA 1 TAB TABLET PO SCH (08:30)
[2018-06-16] MEDS: FLUoxetine 20 MG CAPSULE PO SCH (08:30)
[2018-06-16] MEDS: Aspirin Enteric Coated 81 MG Tablet PO SCH (08:31)
[2018-06-16] MEDS: Acetaminophen 325 MG TABLET PO PRN ×2 (08:31→20:56)
[2018-06-16] MEDS: Ascorbic Acid 500 MG TABLET PO SCH ×2 (08:31→20:56)
[2018-06-16] MEDS: Famotidine 20 MG TABLET PO SCH ×2 (08:31→20:56)
[2018-06-16] MEDS: levoFLOXacin 500 MG TABLET PO SCH (08:31)
[2018-06-16] MEDS: Insulin LISPRO 300 UNITS/3 ML VIAL SQ SCH ×4 (08:32→20:56)
--- NOTE | 2018-06-16 14:18 | Internal Med Progress Note ---
Date of Encounter: 06/17/18 Time of Encounter: 11:00 - Assessment and plan (1) Cerebrovascular accident (CVA) Current Visit: Yes Status: Acute Qualifiers: CVA mechanism: embolism Precerebral and cerebral artery: middle cerebral artery Laterality of affected vessel: right Qualified Code(s): I63.411 - Cerebral infarction due to embolism of right middle cerebral artery (2) Atrial fibrillation Current Visit: Yes Status: Chronic Qualifiers: Atrial fibrillation type: chronic Qualified Code(s): I48.2 - Chronic atrial fibrillation (3) Depressed Current Visit: Yes Status: Acute Qualifiers: Depression Type: major depressive disorder Major depression recurrence: unspecified whether recurrent Active/Remission status: currently active Major depression episode severity: unspecified Qualified Code(s): F32.9 - Ma rosamaria depressive disorder, single episode, unspecified - Subjective Interval history: Assessment and Plan (1) Cerebrovascular accident (CVA) Current visit: Yes Status: Acute Patient underwent treatment at [facility] including TPA is stable now and back on Xarelto She is deconditioned and doing rehabilitation Had previous noncompliance with Xarelto due to depression, depression is currently being treated and stable Recent left ankle fracture . Qualifiers: CVA mechanism: embolism Laterality of affected vessel: right Qualified Code(s): I63.411 - Cerebral infarction due to embolism of right middle cerebral artery (2) Atrial fibrillation Current visit: Yes Status: Chronic Patient has had atrial fibrillation for several years. Diagnosed after routine knee surgery. She is currently rate controlled and stable. She is managed with calcium channel mariella. An chronic anticoagulation xarelto Qualifiers: Atrial fibrillation type: chronic Qualified Code(s): I48.2 - Chronic atrial fibrillation (3) Depressed Current visit: Yes Status: Acute Patient is currently stable with her depression she was started on treatment [facility] she denies problems with these medications. She states she still feels apathetic but denies suicidal ideation or thoughts of harm to self or others. She is agreeable to taking her routine medications and participating in therapy. Qualifiers: Depression Type: major depressive disorder Major depression recurrence: unspecified whether recurrent Active/Remission status: currently active Major depression episode severity: unspecified Qualified Code(s): F32.9 - Major depressive disorder, single episode, unspecified Interval HX Ms. Guerra is a 77 year old female who transferred here for rehabilitation after deconditioning. She comes from [facility]. She was treated at [facility] for acute right-sided CVA, she reports she had complex treatment. Her states she had TPA and thrombus removal. She ultimately had some improvement but has residual left-sided weakness and minor speech impairment, general fatigue and weakness, and vertigo. Doing well and progressing Exam General she is older than stated age talkative HEENT dry oral mucosa no lesions noted Neck supple no bruit Heart irregular no definite murmur Lungs clear bilaterally Abdomen full soft nontender bowel sounds present Extremities left ankle incision intact no drainage no significant edema bilaterally Neurologic mild left-sided weakness - Constitutional Vitals: Temp Pulse Resp BP Pulse Ox 98.3 F 82 16 105/62 95 06/15/18 20:11 06/15/18 20:11 06/15/18 20:11 06/15/18 20:11 06/15/18 20:11 General appearance: Present: cooperative, A&O X 3, pleasant, no acute distress, answers questions appropriately Internal Medicine: Result - Labs CBC & Chem 7: 06/11/18 05:45 06/11/18 05:45 - ABG Interpretation ABG results: PT/INR, D-dimer PT 13.7 Seconds (9.4-12.1) H 05/21/18 06:35 Consult Discharge Plan - Plan Referrals: Carmelo Boudreaux MD [Primary Care Provider] -
[2018-06-16] MEDS: *HR* Rivaroxaban 10 MG TABLET PO SCH (17:33)
[2018-06-17] MEDS: Insulin LISPRO 300 UNITS/3 ML VIAL SQ SCH ×4 (11:40→21:11)
[2018-06-17] MEDS: Famotidine 20 MG TABLET PO SCH ×2 (11:40→21:11)
[2018-06-17] MEDS: Diltiazem CD (24hr) 180 MG CAPSULE PO SCH (11:40)
[2018-06-17] MEDS: Multivit/Ca/Min/Fe/FA 1 TAB TABLET PO SCH (11:40)
[2018-06-17] MEDS: Cholecalciferol (D-3) 1,000 UNIT TABLET PO SCH (11:40)
[2018-06-17] MEDS: levoFLOXacin 500 MG TABLET PO SCH (11:40)
[2018-06-17] MEDS: FLUoxetine 20 MG CAPSULE PO SCH (11:41)
[2018-06-17] MEDS: Lactobacillus 1 EACH CAP.SPRINK PO SCH ×2 (11:41→21:11)
[2018-06-17] MEDS: Ascorbic Acid 500 MG TABLET PO SCH ×2 (11:41→21:11)
[2018-06-17] MEDS: Aspirin Enteric Coated 81 MG Tablet PO SCH (11:41)
[2018-06-17] MEDS: Acetaminophen 325 MG TABLET PO PRN ×2 (11:41→21:12)
--- NOTE | 2018-06-17 13:24 | Internal Med Progress Note ---
Date of Encounter: 06/17/18 Time of Encounter: 01:50 - Assessment and plan (1) Cerebrovascular accident (CVA) Current Visit: Yes Status: Acute Qualifiers: CVA mechanism: embolism Precerebral and cerebral artery: middle cerebral artery Laterality of affected vessel: right Qualified Code(s): I63.411 - Cerebral infarction due to embolism of right middle cerebral artery (2) Atrial fibrillation Current Visit: Yes Status: Chronic Qualifiers: Atrial fibrillation type: chronic Qualified Code(s): I48.2 - Chronic atrial fibrillation (3) Depressed Current Visit: Yes Status: Acute Qualifiers: Depression Type: major depressive disorder Major depression recurrence: unspecified whether recurrent Active/Remission status: currently active Major depression episode severity: unspecified Qualified Code(s): F32.9 - Ma rosamaria depressive disorder, single episode, unspecified - Subjective Interval history: Assessment and Plan (1) Cerebrovascular accident (CVA) Current visit: Yes Status: Acute Patient underwent treatment at [facility] including TPA is stable now and back on Xarelto She is deconditioned and doing rehabilitation Had previous noncompliance with Xarelto due to depression, depression is currently being treated and stable Recent left ankle fracture . Qualifiers: CVA mechanism: embolism Laterality of affected vessel: right Qualified Code(s): I63.411 - Cerebral infarction due to embolism of right middle cerebral artery (2) Atrial fibrillation Current visit: Yes Status: Chronic Patient has had atrial fibrillation for several years. Diagnosed after routine knee surgery. She is currently rate controlled and stable. She is managed with calcium channel mariella. An chronic anticoagulation xarelto Qualifiers: Atrial fibrillation type: chronic Qualified Code(s): I48.2 - Chronic atrial fibrillation (3) Depressed Current visit: Yes Status: Acute Patient is currently stable with her depression she was started on treatment [facility] she denies problems with these medications. She states she still feels apathetic but denies suicidal ideation or thoughts of harm to self or others. She is agreeable to taking her routine medications and participating in therapy. Qualifiers: Depression Type: major depressive disorder Major depression recurrence: unspecified whether recurrent Active/Remission status: currently active Major depression episode severity: unspecified Qualified Code(s): F32.9 - Major depressive disorder, single episode, unspecified Interval HX Ms. Guerra is a 77 year old female who transferred here for rehabilitation after deconditioning. She comes from [facility]. She was treated at [facility] for acute right-sided CVA, she reports she had complex treatment. Her states she had TPA and thrombus removal. She ultimately had some improvement but has residual left-sided weakness and minor speech impairment, general fatigue and weakness, and vertigo. Doing well and progressing. Mood stable Exam General she is older than stated age talkative HEENT dry oral mucosa no lesions noted Neck supple no bruit Heart irregular no definite murmur Lungs clear bilaterally Abdomen full soft nontender bowel sounds present Extremities left ankle incision intact no drainage no significant edema bilaterally Neurologic mild left-sided weakness - Constitutional Vitals: Temp Pulse Resp BP Pulse Ox 98.2 F 83 15 116/80 93 06/17/18 08:11 06/17/18 08:11 06/17/18 08:11 06/17/18 08:11 06/17/18 08:11 General appearance: Present: cooperative, A&O X 3, pleasant, no acute distress, answers questions appropriately Internal Medicine: Result - Labs CBC & Chem 7: 06/11/18 05:45 06/11/18 05:45 - ABG Interpretation ABG results: PT/INR, D-dimer PT 13.7 Seconds (9.4-12.1) H 05/21/18 06:35 Consult Discharge Plan - Plan Referrals: Carmelo Boudreaux MD [Primary Care Provider] -
[2018-06-17] MEDS: *HR* Rivaroxaban 10 MG TABLET PO SCH (18:38)
[2018-06-18] MEDS: Insulin LISPRO 300 UNITS/3 ML VIAL SQ SCH ×4 (07:38→20:34)
[2018-06-18] MEDS: Famotidine 20 MG TABLET PO SCH ×2 (08:53→20:34)
[2018-06-18] MEDS: Lactobacillus 1 EACH CAP.SPRINK PO SCH ×2 (08:53→20:33)
[2018-06-18] MEDS: FLUoxetine 20 MG CAPSULE PO SCH (08:53)
[2018-06-18] MEDS: levoFLOXacin 500 MG TABLET PO SCH (08:53)
[2018-06-18] MEDS: Cholecalciferol (D-3) 1,000 UNIT TABLET PO SCH (08:53)
[2018-06-18] MEDS: Ascorbic Acid 500 MG TABLET PO SCH ×2 (08:53→20:33)
[2018-06-18] MEDS: Aspirin Enteric Coated 81 MG Tablet PO SCH (08:53)
[2018-06-18] MEDS: Multivit/Ca/Min/Fe/FA 1 TAB TABLET PO SCH (08:53)
[2018-06-18 09:36] LABS: Basophils # 0.1 K/mcL (0.0-0.2); Basophils % 0.7 %; Eosinophils # 0.1 K/mcL (0.0-0.6); Eosinophils % 1.5 %; Hemoglobin 12.9 g/dL (11.5-15.4); Immature Granulocytes % 0.2 % (0-4); Lymphocytes # 1.4 K/mcL (0.6-4.6); Lymphocytes % 16.2 %; Mean Corpuscular HGB Conc 32.3 g/dL (31.6-35.5); Mean Corpuscular Hemoglobin 30.8 pg (28.0-33.3); Mean Corpuscular Volume 95.5 fL (83.0-100.0); Mean Platelet Volume 9.1 fL (9.4-12.4); Monocytes # 0.7 K/mcL (0.0-1.3); Monocytes % 8.5 %; Neutrophils # 6.4 K/mcL (1.6-8.9); Platelet Count 300 K/mcL (140-400); Red Blood Count 4.19 M/mcL (3.82-4.97); Red Cell Distribution Width 15.3 % (11.5-14.5); Segmented Neutrophils % 72.9 %
[2018-06-18] MEDS: Diltiazem CD (24hr) 180 MG CAPSULE PO SCH (09:44)
[2018-06-18 09:50] LABS: Alanine Aminotransferase 25 Units/L (7-52); Albumin 4.2 g/dL (3.5-5.7); Albumin/Globulin Ratio 1.7 (1.1-2.2); Alkaline Phosphatase 88 Units/L (34-104); Aspartate Amino Transferase 21 Units/L (13-39); BUN/Creatinine Ratio 17 (6-26); Bilirubin,Total 0.8 mg/dL (0.3-1.0); Blood Urea Nitrogen 17 mg/dL (8-23); Calcium 9.1 mg/dL (8.6-10.3); Carbon Dioxide 24 mEq/L (23-29); Chloride 106 mEq/L (98-107); Globulin 2.5 g/dL (2.4-3.5); Glucose 229 mg/dL (70-105); Osmolality,Calculated 297 (280-300); Potassium 3.8 mEq/L (3.5-5.1); Sodium 139 mEq/L (136-145); Total Protein 6.7 g/dL (6.4-8.9); eGFR For Non-African Americans 55 (> 60)
--- NOTE | 2018-06-18 10:02 | Internal Med Progress Note ---
Date of Encounter: 06/18/18 Time of Encounter: 10:00 - Assessment and plan (1) Cerebrovascular accident (CVA) Current Visit: Yes Status: Acute Assessment and plan: No new neurological deficits. Continue PT and OT. Will follow progress. Follow up with neurologist as scheduled. 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 Pain controlled. Weight bearing as tolerated. Follow up with surgeon as scheduled. Qualifiers: Encounter type: subsequent encounter Fracture healing: with routine healing Qualified Code(s): S82.892D - Other fracture of left lower leg, subsequent encounter for closed fracture with routine healing (3) Diabetes Current Visit: Yes Status: Acute Assessment and plan: Controlled. Monitor fingerstick blood sugars. Will adjust coverage was sliding scale. Qualifiers: Diabetes mellitus type: type 2 Diabetes mellitus skilled nursing insulin use: without skilled nursing use Diabetes mellitus complication status: with unspecified complications Qualified Code(s): E11.8 - Type 2 diabetes mellitus with unspecified complications (4) Atrial fibrillation Current Visit: Yes Status: Chronic Assessment and plan: Rate and rhythm controlled. Continues xarelto. Qualifiers: Atrial fibrillation type: chronic Qualified Code(s): I48.2 - Chronic atrial fibrillation - Time Spent With Patient less than 15 minutes - Subjective Interval history: participating well with therapy. Propels self in wheelchair. ambulating with walker with therapy. denies new neurological deficits, nausea, vomitting or diarrhea. last BM this am. denies fever, chill, SOB or chest pain. walking boot on left. maintaining appetite and hydration. scheduled to discharge to home at the end of this week. - Constitutional Vitals: Temp Pulse Resp BP Pulse Ox 97.9 F 59 16 111/68 94 06/18/18 07:00 06/18/18 07:00 06/18/18 07:00 06/18/18 07:00 06/18/18 07:00 General appearance: Present: cooperative, A&O X 3, pleasant, no acute distress, answers questions appropriately - Head Head exam: Present: atraumatic, normocephalic - Eye Eye exam: Present: PERRL, conjuntiva pink, sclera anicteric Pupils: Present: PERRL - Neck Neck exam general surgery: Present: supple, trachea midline. Absent: lymphadenopathy - Respiratory Respiratory exam: Present: CTAB. Absent: accessory muscle use, rales, rhonchi, wheezes - Cardiovascular Cardiovascular exam: Present: irregular rhythm, +S1, +S2. Absent: diastolic murmur, gallop, rubs, systolic murmur - GI/Abdominal GI/Abdominal exam: Present: normal bowel sounds, soft, no peritoneal signs. Absent: distended, tenderness - Extremities Exam Extremities exam: Present: warm, radial pulses palpable and symmetrical. Absent: calf tenderness, cyanotic, pedal edema Additional comments: walking boot on LLE - Neurological Exam Neurological exam: Present: CN II-XII intact, oriented X3, no focal deficits. Absent: pronater drift, facial droop, speech deficit - Skin Skin exam: Present: dry, intact Internal Medicine: Result - Labs CBC & Chem 7: 06/18/18 09:30 06/18/18 09:30 Labs: Short CBC 06/18/18 Range/Units 09:30 WBC 8.7 (4.3-11.1) K/mcL Hgb 12.9 (11.5-15.4) g/dL Hct 40.0 (35.3-44.9) % Plt Count 300 (140-400) K/mcL Neutrophils # 6.4 (1.6-8.9) K/mcL BMP 06/18/18 09:30 Sodium 139 Potassium 3.8 Chloride 106 Carbon Dioxide 24 BUN 17 Creatinine 0.98 Glucose 229 H Calcium 9.1 Liver Function 06/18/18 Range/Units 09:30 Total Bilirubin 0.8 (0.3-1.0) mg/dL AST 21 (13-39) Units/L ALT 25 (7-52) Units/L Alkaline Phosphatase 88 (34-104) Units/L Albumin 4.2 (3.5-5.7) g/dL - ABG Interpretation ABG results: PT/INR, D-dimer PT 13.7 Seconds (9.4-12.1) H 05/21/18 06:35 Consult Discharge Plan - Plan Referrals: Carmelo Boudreaux MD [Primary Care Provider] -
[2018-06-18] MEDS: *HR* Rivaroxaban 10 MG TABLET PO SCH (16:49)
[2018-06-18] MEDS: Acetaminophen 325 MG TABLET PO PRN (20:33)
[2018-06-19] MEDS: Cholecalciferol (D-3) 1,000 UNIT TABLET PO SCH (07:54)
[2018-06-19] MEDS: Insulin LISPRO 300 UNITS/3 ML VIAL SQ SCH ×4 (07:54→21:00)
[2018-06-19] MEDS: FLUoxetine 20 MG CAPSULE PO SCH (07:55)
[2018-06-19] MEDS: Aspirin Enteric Coated 81 MG Tablet PO SCH (07:55)
[2018-06-19] MEDS: Diltiazem CD (24hr) 180 MG CAPSULE PO SCH (07:55)
[2018-06-19] MEDS: levoFLOXacin 500 MG TABLET PO SCH (07:55)
[2018-06-19] MEDS: Multivit/Ca/Min/Fe/FA 1 TAB TABLET PO SCH (07:55)
[2018-06-19] MEDS: Lactobacillus 1 EACH CAP.SPRINK PO SCH ×2 (07:55→21:07)
[2018-06-19] MEDS: Ascorbic Acid 500 MG TABLET PO SCH ×2 (07:56→21:07)
[2018-06-19] MEDS: Famotidine 20 MG TABLET PO SCH ×2 (07:56→21:07)
[2018-06-19] MEDS: Acetaminophen 325 MG TABLET PO PRN ×3 (08:06→21:07)
--- NOTE | 2018-06-19 09:39 | Internal Med Progress Note ---
Date of Encounter: 06/19/18 Time of Encounter: 09:34 - Assessment and plan (1) Cerebrovascular accident (CVA) Current Visit: Yes Status: Acute Assessment and plan: No new neurological deficits. Continue PT and OT. Will follow progress. Follow up with neurologist as scheduled. 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 Pain controlled. Weight bearing as tolerated. Follow up with surgeon as scheduled. Qualifiers: Encounter type: subsequent encounter Fracture healing: with routine healing Qualified Code(s): S82.892D - Other fracture of left lower leg, subsequent encounter for closed fracture with routine healing (3) Diabetes Current Visit: Yes Status: Acute Assessment and plan: Controlled. Monitor fingerstick blood sugars. Will adjust coverage was sliding scale. Qualifiers: Diabetes mellitus type: type 2 Diabetes mellitus senior living insulin use: without senior living use Diabetes mellitus complication status: with unspecified complications Qualified Code(s): E11.8 - Type 2 diabetes mellitus with unspecified complications (4) Atrial fibrillation Current Visit: Yes Status: Chronic Assessment and plan: Rate and rhythm controlled. Continues xarelto. Qualifiers: Atrial fibrillation type: chronic Qualified Code(s): I48.2 - Chronic atrial fibrillation - Time Spent With Patient less than 15 minutes - Subjective Interval history: participating well with therapy. Propels self in wheelchair. ambulating with walker with therapy. denies new neurological deficits, nausea, vomitting or diarrhea. last BM last night. denies fever, chill, SOB or chest pain. walking boot on left. maintaining appetite and hydration. scheduled to discharge to home on 06/21. - Constitutional Vitals: Temp Pulse Resp BP Pulse Ox 98.0 F 94 16 108/71 92 06/19/18 07:00 06/19/18 07:00 06/19/18 07:00 06/19/18 07:00 06/19/18 07:00 General appearance: Present: cooperative, A&O X 3, pleasant, no acute distress, answers questions appropriately - Head Head exam: Present: atraumatic, normocephalic - Eye Eye exam: Present: PERRL, conjuntiva pink, sclera anicteric Pupils: Present: PERRL - Neck Neck exam general surgery: Present: supple, trachea midline. Absent: lymphadenopathy - Respiratory Respiratory exam: Present: CTAB. Absent: accessory muscle use, rales, rhonchi, wheezes - Cardiovascular Cardiovascular exam: Present: irregular rhythm, +S1, +S2. Absent: diastolic murmur, gallop, rubs, systolic murmur - GI/Abdominal GI/Abdominal exam: Present: normal bowel sounds, soft, no peritoneal signs. Absent: distended, tenderness - Extremities Exam Extremities exam: Present: warm, radial pulses palpable and symmetrical. Absent : calf tenderness, cyanotic, pedal edema - Neurological Exam Neurological exam: Present: CN II-XII intact, oriented X3, no focal deficits. Absent: pronater drift, facial droop, speech deficit - Skin Skin exam: Present: dry, intact Internal Medicine: Result - Labs CBC & Chem 7: 06/18/18 09:30 06/18/18 09:30 Labs: Short CBC 06/18/18 Range/Units 09:30 WBC 8.7 (4.3-11.1) K/mcL Hgb 12.9 (11.5-15.4) g/dL Hct 40.0 (35.3-44.9) % Plt Count 300 (140-400) K/mcL Neutrophils # 6.4 (1.6-8.9) K/mcL BMP 06/18/18 09:30 Sodium 139 Potassium 3.8 Chloride 106 Carbon Dioxide 24 BUN 17 Creatinine 0.98 Glucose 229 H Calcium 9.1 Liver Function 06/18/18 Range/Units 09:30 Total Bilirubin 0.8 (0.3-1.0) mg/dL AST 21 (13-39) Units/L ALT 25 (7-52) Units/L Alkaline Phosphatase 88 (34-104) Units/L Albumin 4.2 (3.5-5.7) g/dL - ABG Interpretation ABG results: PT/INR, D-dimer PT 13.7 Seconds (9.4-12.1) H 05/21/18 06:35 Consult Discharge Plan - Plan Referrals: Carmelo Boudreaux MD [Primary Care Provider] -
[2018-06-19] MEDS: *HR* Rivaroxaban 10 MG TABLET PO SCH (16:50)
[2018-06-20] MEDS: Aspirin Enteric Coated 81 MG Tablet PO SCH (08:14)
[2018-06-20] MEDS: Cholecalciferol (D-3) 1,000 UNIT TABLET PO SCH (08:14)
[2018-06-20] MEDS: Famotidine 20 MG TABLET PO SCH ×2 (08:14→20:55)
[2018-06-20] MEDS: Lactobacillus 1 EACH CAP.SPRINK PO SCH ×2 (08:14→20:55)
[2018-06-20] MEDS: Diltiazem CD (24hr) 180 MG CAPSULE PO SCH (08:14)
[2018-06-20] MEDS: Ascorbic Acid 500 MG TABLET PO SCH ×2 (08:14→20:54)
[2018-06-20] MEDS: FLUoxetine 20 MG CAPSULE PO SCH (08:14)
[2018-06-20] MEDS: Multivit/Ca/Min/Fe/FA 1 TAB TABLET PO SCH (08:14)
[2018-06-20] MEDS: levoFLOXacin 500 MG TABLET PO SCH (08:14)
[2018-06-20] MEDS: Insulin LISPRO 300 UNITS/3 ML VIAL SQ SCH ×4 (08:15→20:55)
--- NOTE | 2018-06-20 11:10 | Internal Med Progress Note ---
Date of Encounter: 06/20/18 Time of Encounter: 11:08 - Subjective Interval history: Patient unavailable because of community reentry excursion, today. - Constitutional Vitals: Temp Pulse Resp BP Pulse Ox 97.6 F 86 16 113/50 98 06/20/18 07:30 06/20/18 07:30 06/20/18 07:30 06/20/18 07:30 06/20/18 07:30 Internal Medicine: Result - Labs CBC & Chem 7: 06/18/18 09:30 06/18/18 09:30 - ABG Interpretation ABG results: PT/INR, D-dimer PT 13.7 Seconds (9.4-12.1) H 05/21/18 06:35 Consult Discharge Plan - Plan Referrals: Carmelo Boudreaux MD [Primary Care Provider] -
[2018-06-20] MEDS: *HR* Rivaroxaban 10 MG TABLET PO SCH (17:02)
[2018-06-20] MEDS: Acetaminophen 325 MG TABLET PO PRN (21:00)
[2018-06-21] MEDS: Diltiazem CD (24hr) 180 MG CAPSULE PO SCH (08:22)
[2018-06-21] MEDS: Aspirin Enteric Coated 81 MG Tablet PO SCH (08:22)
[2018-06-21] MEDS: Cholecalciferol (D-3) 1,000 UNIT TABLET PO SCH (08:22)
[2018-06-21] MEDS: Famotidine 20 MG TABLET PO SCH (08:22)
[2018-06-21] MEDS: Multivit/Ca/Min/Fe/FA 1 TAB TABLET PO SCH (08:22)
[2018-06-21] MEDS: Lactobacillus 1 EACH CAP.SPRINK PO SCH (08:22)
[2018-06-21] MEDS: FLUoxetine 20 MG CAPSULE PO SCH (08:22)
[2018-06-21] MEDS: Ascorbic Acid 500 MG TABLET PO SCH (08:22)
[2018-06-21] MEDS: Insulin LISPRO 300 UNITS/3 ML VIAL SQ SCH ×2 (08:24→14:48)
[2018-06-21 09:48] VITALS: BP 122/74
--- NOTE | 2018-06-21 11:22 | Discharge Summary ---
Date of Encounter: 06/21/18 Time of Encounter: 11:18 - Discharge Diagnosis (1) Cerebrovascular accident (CVA) Priority: Primary Status: Acute Comments: Patient was admitted with slight left hemiparesis on admission but her strength has continued to improve during therapy over the past several weeks and currently she shows very minimal muscle strength weakness on her left. No other focal deficits on exam. Patient will continue her follow-up with neurology after discharge and PCP. Qualifiers: CVA mechanism: embolism Precerebral and cerebral artery: middle cerebral a rtery Laterality of affected vessel: right Qualified Code(s): I63.411 - Cerebral infarction due to embolism of right middle cerebral artery (2) Closed left ankle fracture Priority: Secondary Status: Acute Comments: He had experienced a fall with a left ankle fracture which she received a ORIF during her hospital stay for her CVA. Left ankle surgical incision appears healthy. Patient continues with walking boot and has had follow-up with orth opedics during her stay at this facility. Patient will continue her follow-up with orthopedics after discharge Qualifiers: Encounter type: subsequent encounter Fracture healing: with routine healing Qualified Code(s): S82.892D - Other fracture of left lower leg, subsequent encounter for closed fracture with routine healing (3) Atrial fibrillation Priority: Secondary Status: Chronic Comments: No acute issues. Patient's heart rate has remained stable with ventricular rate less than 100. Patient continues on Cardizem. We will continue her follow-up with PCP after discharge. Qualifiers: Atrial fibrillation type: chronic Qualified Code(s): I48.2 - Chronic atrial fibrillation (4) Diabetes Priority: Secondary Status: Acute Comments: No acute issues during her stay of facility. Patient had fingersticks with her glucose well-controlled with most readings less than 150. We will discontinue sliding scale insulin and have patient follow-up with PCP after discharge for further evaluation of her diabetes. Qualifiers: Diabetes mellitus type: type 2 Diabetes mellitus half-way insulin use: without exterminator termite use Diabetes mellitus complication status: with unspecified complications Qualified Code(s): E11.8 - Type 2 diabetes mellitus with unspecified complications Hospital course: Ms. Guerra is a 77 year old female who transferred here for rehabilitation after deconditioning. She was treated at [facility] for acute right-sided CVA, she reports she had complex treatment. Her states she had TPA and thr ombus removal. She ultimately improved, but continued to have residual left- sided weakness and minor speech impairment, general fatigue and weakness, and vertigo on admission to rehab. She has a long history of atrial fibrillation and hypertension, she reports that this was diagnosed about 7 years ago after a knee surgery. She states that she has been on XARELTO since her diagnosis. Her and family report that she stopped taking it prior to the CVA perhaps for a week or 2 maybe longer. While at [facility] she also suffered a left ankle fracture which was repaired with hardware. She states this is feeling okay and denies significant pain from the area. Patient has had follow-up with orthopedic surgeon and continues to have a walking boot to her left foot. She has a history of remote right-sided breast cancer with remote right mastectomy. During her stay at rehabilitation patient has progressed well with physical therapy. Patient will continue her physical therapy to home health services. Patient is to continue follow-up with neurology and her PCP. Patient also continues to have follow-up with orthopedic surgeon. Her states that she has a follow-up appointment with her PCP on July 04. Patient will be discharged with prescriptions for all of her new medications to include Xarelto. Discharge discussed with: patient Time spent discussing smoking cessation with patient: 3 to 10 minutes - Time Spent with Patient Total time spent providing and/or coordinating discharge services: Time spent: Less than 30 minutes - Discharge Medications Prescriptions: No Action FLUoxetine HCl [PROzac] 40 mg PO DAILY Atorvastatin [Lipitor] 80 mg PO HS Rivaroxaban [Xarelto] 20 mg PO DAILY Diltiazem HCl [Diltiazem 24Hr Cd] 360 mg PO DAILY Vit C/E/Zn/Coppr/Lutein/Zeaxan [Preservision Areds 2 Softgel] 1 cap PO DAILY Home Medications: Atorvastatin [Lipitor] 80 mg PO HS 04/05/15 [History] Diltiazem HCl [Diltiazem 24Hr Cd] 360 mg PO DAILY 04/05/15 [History] FLUoxetine HCl [PROzac] 40 mg PO DAILY 04/05/15 [History] Rivaroxaban [Xarelto] 20 mg PO DAILY 04/05/15 [History] Vit C/E/Zn/Coppr/Lutein/Zeaxan [Preservision Areds 2 Softgel] 1 cap PO DAILY 05/18/18 [History] Allergies/Adverse Reactions: Allergy/AdvReac Type Severity Reaction Status Date / Time metformin AdvReac Gastrointestinal Verified 05/18/18 19:23 Upset oxycodone [From Percocet] AdvReac Nausea Verified 10/06/14 10:03 Date of admission: 05/18/18 17:22 Primary care physician: Carmelo Boudreaux MD Consults: 05/18/18 18:38 Consult to Occupational Therapy [CONS] Routine Comment: s/p cva Reason for Consult: s/p right cva Does patient have active BEDREST order?: No Is patient medically & hemodynamically stable?: Yes Consult to Physical Therapy [CONS] Routine Comment: s/p right cva Reason for Consult: s/p right CVA Does patient have active BEDREST order?: No Is patient medically & hemodynamically stable?: Yes Consult to Recreational Therapy [CONS] Routine Comment: Consult to Assistant Track Coach [CONS] Routine Reason for SW Consult: discharge planning 05/18/18 18:42 Consult to Speech Therapy [CONS] Routine Comment: Evaluate, develop and implement POC Reason for Consult: s/p right cva Call Completed: Yes 05/23/18 11:03 Consult to Psychology [CONS] Routine Consulting Provider: Calli Bustamante Reason for Consult: Possible depression; adjustment disorder Call Completed: No 05/28/18 12:45 Consult to Psychiatry [CONS] Routine Consulting Provider: Calli Bustamante Reason consult: Other Other reason and/or additional details: possible depression. - Constitutional Vitals: Temp Pulse Resp BP Pulse Ox 97.6 F 96 18 122/74 95 06/21/18 07:00 06/21/18 07:00 06/21/18 07:00 06/21/18 07:00 06/21/18 07:00 General appearance: Present: cooperative, A&O X 3, pleasant, no acute distress, answers questions appropriately - Head Head exam: Present: atraumatic, normocephalic - Eye Eye exam: Present: PERRL, conjuntiva pink, sclera anicteric Pupils: Present: PERRL - Neck Neck exam general surgery: Present: supple, trachea midline. Absent: lymphadenopathy - Respiratory Respiratory exam: Present: CTAB. Absent: accessory muscle use, rales, rhonchi, wheezes - Cardiovascular Cardiovascular exam: Present: RRR, +S1, +S2. Absent: diastolic murmur, gallop, rubs, systolic murmur - GI/Abdominal GI/Abdominal exam: Present: normal bowel sounds, soft, no peritoneal signs. Absent: distended, tenderness - Extremities Exam Extremities exam: Present: warm, radial pulses palpable and symmetrical. Absent: calf tenderness, cyanotic, pedal edema Additional comments: Patient has a walking boot to her left foot. Distal CV checks within normal limits. Patient continues with Tigre wrap dressing to left ankle. - Neurological Exam Neurological exam: Present: CN II-XII intact, oriented X3, no focal deficits. Absent: pronater drift, facial droop, speech deficit - Skin Skin exam: Present: dry, intact - Patient Status Disposition: Home Health Service Condition: Good Functional capacity at discharge: uses cane/walker Overall status at discharge: patient is progressing back to baseline - Discharge Instructions Follow Up With: Carmelo Boudreaux MD [Primary Care Provider] - - Diet and Activity Activity: ambulate only with your walker, as per physical therapy, increase activity as tolerated Diet: diabetic diet, low fat, low cholesterol, low salt diet
--- NOTE | 2018-06-21 11:33 | Physician Discharge Referral ---
Home Health/Hosp Referral Info Transfer to: Home Health Provider in Charge Post Discharge: PCP - Diagnosis (1) Cerebrovascular accident (CVA) Priority: Primary Status: Acute (2) Closed left ankle fracture Priority: Secondary Status: Acute (3) Atrial fibrillation Priority: Secondary Status: Chronic (4) Diabetes Priority: Secondary Status: Acute - Respiratory Orders Smoking Cessation: Smoking cessation has been advised. For more information, call the [place] Tobacco Quit Line at 0-613-XCBR-NOW. - Diet/Nutrition Diet/Nutrition Orders: No Added Salt (ZAMZAM), Cardiac, No Concentrated Sweets - Activity Activity Orders: Up ad kp, Walker - Services Needed Following services are medically necessary services: Physical Therapy, Occupational Therapy - Transfer Medications Home Medications: Atorvastatin [Lipitor] 80 mg PO HS 04/05/15 [History] Diltiazem HCl [Diltiazem 24Hr Cd] 360 mg PO DAILY 04/05/15 [History] FLUoxetine HCl [PROzac] 40 mg PO DAILY 04/05/15 [History] Rivaroxaban [Xarelto] 20 mg PO DAILY 04/05/15 [History] Vit C/E/Zn/Coppr/Lutein/Zeaxan [Preservision Areds 2 Softgel] 1 cap PO DAILY 05/18/18 [History] Allergies/Adverse Reactions: Allergy/AdvReac Type Severity Reaction Status Date / Time metformin AdvReac Gastrointestinal Verified 05/18/18 19:23 Upset oxycodone [From Percocet] AdvReac Nausea Verified 10/06/14 10:03 Certification: Further, I certify that my clinical findings support that this patient is homebound (i.e. absences from home require considerable and taxing effort and are for medical reasons or roman catholic services or infrequently or short duration when for other reasons) because: Homebound Reason: Leaving home requires considerable and taxing effort due to condition Attestation: My signature below is to certify that this patient is under my care and that I, or nurse practitioner, or a physician's actuarial assistant working with me, has a [id number] encounter with this patient.
== END 2018-06-21 12:10 | disposition home health service (06) | DRG 57 ==
LOC: INPGRE 05-18 17:22

== ENCOUNTER 2018-07-26 13:25 | Inpatient (IN) ==
[2018-07-26] MEDS ORDERED: D5% in Water 1,000 ML IVC PRN (16:21)
[2018-07-26] MEDS ORDERED: *HR* Dextrose 50 % in Water (Syg) 50 ML SYRINGE IVP PRN (16:21)
[2018-07-26] MEDS ORDERED: Dextrose Gel 15 GM/37.5 ML TUBE PO PRN ×2 (16:21)
[2018-07-26] MEDS: Insulin LISPRO 300 UNITS/3 ML VIAL SQ SCH ×2 (17:03→21:45)
[2018-07-26] MEDS: Ammonium Lactate 30 APPL/225 GM BOTTLE TP SCH (21:45)
[2018-07-26] MEDS: *HR* Rivaroxaban 10 MG TABLET PO SCH (21:46)
[2018-07-26] MEDS: Acetaminophen 325 MG TABLET PO PRN (21:46)
[2018-07-26] MEDS: Famotidine 20 MG TABLET PO SCH (21:46)
[2018-07-27 05:54] LABS: Basophils % 0.6 %; Eosinophils # 0.2 K/mcL (0.0-0.6); Hematocrit 32.4 % (35.3-44.9); Hemoglobin 10.4 g/dL (11.5-15.4); Immature Granulocytes % 0.2 % (0-4); Lymphocytes # 1.2 K/mcL (0.6-4.6); Lymphocytes % 22.8 %; Mean Corpuscular HGB Conc 32.1 g/dL (31.6-35.5); Mean Corpuscular Hemoglobin 30.3 pg (28.0-33.3); Mean Corpuscular Volume 94.5 fL (83.0-100.0); Mean Platelet Volume 9.4 fL (9.4-12.4); Monocytes # 0.7 K/mcL (0.0-1.3); Monocytes % 12.4 %; Neutrophils # 3.2 K/mcL (1.6-8.9); Platelet Count 225 K/mcL (140-400); Red Blood Count 3.43 M/mcL (3.82-4.97); Red Cell Distribution Width 15.2 % (11.5-14.5); White Blood Count 5.3 K/mcL (4.3-11.1)
[2018-07-27 05:58] LABS: INR 3.9
[2018-07-27 06:01] LABS: Activated Partial Thrombo Time 42.9 Seconds (26.0-36.0)
[2018-07-27 06:03] LABS: Prothrombin Time 44.2 Seconds (9.4-12.1)
[2018-07-27 06:08] LABS: Alanine Aminotransferase 21 Units/L (7-52); Albumin 3.6 g/dL (3.5-5.7); Albumin/Globulin Ratio 1.7 (1.1-2.2); Alkaline Phosphatase 87 Units/L (34-104); Aspartate Amino Transferase 17 Units/L (13-39); BUN/Creatinine Ratio 20 (6-26); Bilirubin,Total 1.2 mg/dL (0.3-1.0); Blood Urea Nitrogen 13 mg/dL (8-23); Calcium 8.7 mg/dL (8.6-10.3); Carbon Dioxide 27 mEq/L (23-29); Chloride 107 mEq/L (98-107); Globulin 2.1 g/dL (2.4-3.5); Glucose 123 mg/dL (70-105); Magnesium 1.8 mg/dL (1.6-2.6); Osmolality,Calculated 293 (280-300); Potassium 3.2 mEq/L (3.5-5.1); Sodium 141 mEq/L (136-145); Total Protein 5.7 g/dL (6.4-8.9); eGFR For African Americans > 60 (> 60); eGFR For Non-African Americans > 60 (> 60)
[2018-07-27] MEDS: Insulin LISPRO 300 UNITS/3 ML VIAL SQ SCH ×4 (07:26→20:49)
[2018-07-27] MEDS ORDERED: *HR* Phytonadione 10 MG/ML AMPUL SQ ONE (07:29)
[2018-07-27] MEDS: Aspirin 325 MG TABLET PO SCH (09:15)
[2018-07-27] MEDS: Diltiazem CD (24hr) 180 MG CAPSULE PO SCH (09:16)
[2018-07-27] MEDS: Cholecalciferol (D-3) 1,000 UNIT (25MCG) TABLET PO SCH (09:16)
[2018-07-27] MEDS: Multivit/Ca/Min/Fe/FA 1 TAB TABLET PO SCH (09:16)
[2018-07-27] MEDS: Ammonium Lactate 30 APPL/225 GM BOTTLE TP SCH ×2 (09:16→20:23)
[2018-07-27] MEDS: FLUoxetine 20 MG CAPSULE PO SCH (09:16)
[2018-07-27] MEDS: Famotidine 20 MG TABLET PO SCH ×2 (09:16→20:18)
--- NOTE | 2018-07-27 09:53 | Internal Med History&Physical ---
Date of Encounter: 07/27/18 Time of Encounter: 09:43 Assessment and Plan (1) Cerebrovascular accident (CVA) Current visit: Yes Status: Acute Patient admitted to this facility for further rehabilitation due to generalized weakness and a recent history of unsteady gait, likely related to her left hemiparesis, which is a residual of her CVA. He has had a recent history of multiple falls over the past several weeks. Patient also with recent history of ORIF of the left ankle which has complicated her range of motion. Patient continues to show slight weakness with left extremities have 4+/5. Therapy evaluation pending with recommendations. We will continue with current plan of care. 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 We will continue on fingersticks with sliding scale coverage. We will evaluate any needs for long-acting coverage. Currently patient's glucose of been well controlled with readings less than 200 Qualifiers: Diabetes mellitus type: type 2 Diabetes mellitus half-way insulin use: with half-way use Diabetes mellitus complication status: without complication Qualified Code(s): E11.9 - Type 2 diabetes mellitus without complications; Z79.4 - jail (current) use of insulin (3) Cardiomyopathy Current visit: Yes Status: Chronic No acute issues. Patient denies any discomforts or shortness of breath. Denies any palpitations. No edema present. We will continue on current medications Qualifiers: Cardiomyopathy type: unspecified Qualified Code(s): I42.9 - Cardiomyopathy, unspecified (4) Atrial fibrillation Current visit: Yes Status: Chronic No acute issues. Patient continues with irregular heart rate but is controlled less than 100. Continue on current medications Qualifiers: Atrial fibrillation type: chronic Qualified Code(s): I48.2 - Chronic atrial fibrillation Internal Medicine - H&P: HPI Chief complaint: CVA Admitted From: Hospital to Hospital Transfer Plans for Post Hospital Care: Home History of present illness: Ms. Guerra is a 77 year old, who presented to the ER at [place] about week ago with right should pain, dizziness and vomiting. Stated that she was sitting in a chair when she suddenly had dizziness, right should pain and an episode of vomiting. She had a similar episode the day before that resolved on its own. She has a significant history of resent stroke as well as atrial fibrillation currently on xarelto. She was also seen in the ER about 10 days prior to that presentation for a fall requiring a stable to be placed for a head wound. Patient reportedly has been living at home and is reported that she has had frequent falls over the past several weeks and remains unsteady with her gait, mostly due to her left hemiparesis from previous CVA. Patient shows minimal weakness to her left leg, but states that she has some difficulty picking up her left foot, which is also where she experienced a fracture during her initial admission for CVA. Patient was evaluated for possible cardiac syndrome due to complaints of right shoulder pain and nausea while at [facility]. Cardiac catheter was performed which showed no significant disease. Patient was discharged and transferred to this facility for further rehabilitation due to her continued weakness and unsteady gait. Patient currently denies any discomforts or shortness of breath. Patient states that she is anxious to begin therapy. Past Med Surg Social Fam HX - Past Medical History Medical history: atrial fibrillation, cancer, CVA, DVT, diabetes, other Additional medical history: breast ca. uteran cancer. left and right leg fx/ sx. blood clot in head Psychiatric history: anxiety, depression - Past Surgical History Additional surgical history: Right shoulder replacement, hyst, left knee, right leg plate, ORIF left ankle, cataract surgery, heart cathx2 - Social History Smoking Status: Never smoker Smokeless Tobacco Status: No Alcohol use: none Drug use: none - Family History Father Living Status: Hx Family Cancer: Yes Hx Family Endocrine Disorder: Yes (Diabetic) Mother History Unknown: Yes Living Status: Hx Family Cardiac Disorders: Yes Hx Family Endocrine Disorder: Yes (DM) Internal Medicine - H&P: Meds Diltiazem HCl [Diltiazem 24Hr Cd] 360 mg PO DAILY 04/05/15 [History] FLUoxetine HCl [Prozac] 40 mg PO DAILY #30 capsule 06/21/18 [Rx] Famotidine [Pepcid] 20 mg PO BID #60 tablet 06/21/18 [Rx] Metoprolol [Lopressor] 25 mg PO BID #60 tablet 06/21/18 [Rx] Acetaminophen [Tylenol Arthritis] 650 mg PO Q6H PRN 07/21/18 [History] Aspirin 325 mg PO DAILY 07/21/18 [History] Rivaroxaban [Xarelto] 20 mg PO HS 07/21/18 [History] Ammonium Lactate 1 appl TP BID 07/23/18 [History] Atorvastatin Calcium 80 mg PO HS 07/23/18 [History] Cholecalciferol (Vitamin D3) [Vitamin D3] 2,000 units PO DAILY 07/23/18 [History] Vit C/E/Zn/Coppr/Lutein/Zeaxan [Preservision Areds 2 Softgel] 2 cap PO DAILY 07/23/18 [History] Allergy/AdvReac Type Severity Reaction Status Date / Time hydrocodone Allergy See Verified 07/23/18 13:42 Comments metformin AdvReac Diarrhea, Verified 07/23/18 13:42 Gastrointestinal Upset oxycodone [From Percocet] AdvReac Nausea Verified 07/21/18 23:07 All Systems PM: A 10-system review of systems was performed and is negative for pertinent findings except as documented above in the HPI. - Constitutional Constitutional: no chills, no fever(s), no night sweats - EENT Eyes: as per HPI, no change in vision, no discharge, no pain, no photophobia Ears: no ear discharge, no ear pain, no tinnitus Nose, mouth and throat: as per HPI, no dysphagia, no nasal discharge, no neck pain, no sore throat - Breasts Breasts: as per HPI - Cardiovascular Cardiovascular ROS IM: as per HPI, no chest pain, no diaphoresis, no dyspnea, no lightheadedness, no palpitations, no syncope - Respiratory Respiratory: as per HPI, no cough, no dyspnea, no wheezing, no excessive phlegm production - Gastrointestinal Gastrointestinal: as per HPI, no abdominal pain, no diarrhea, no hematemesis, no hematochezia, no melena, no nausea, no vomiting - Genitourinary Genitourinary: as per HPI, no change in urinary stream, no dysuria, no flank pain, no hematuria Menstruation: as per HPI - Musculoskeletal Musculoskeletal ROS IM: as per HPI, no numbness, no tingling - Integumentary Integumentary IM: as per HPI, no rash, no unusual bruising - Neurological Neurological ROS: as per HPI, no confusion, no convulsions, no focal weakness, no numbness, no tingling, no tremor(s) - Psychiatric Psychiatric: as per HPI - Hematologic/Lymphatic Hematologic/Lymphatic: no easy bruising - Constitutional Vitals: Temp Pulse Resp BP Pulse Ox 98.0 F 88 16 124/81 95 07/27/18 07:30 07/27/18 07:30 07/27/18 07:30 07/27/18 07:30 07/27/18 07:30 General appearance: Present: A&O X 3, pleasant - Head Head exam: Present: atraumatic, normocephalic - Eye Eye exam: Present: PERRL, conjuntiva pink, sclera anicteric Pupils: Present: PERRL - Neck Neck exam general surgery: Present: supple, trachea midline. Absent: lymphadenopathy - Respiratory Respiratory exam: Present: CTAB. Absent: accessory muscle use, rales, rhonchi, wheezes - Cardiovascular Cardiovascular exam: Present: RRR, +S1, +S2. Absent: diastolic murmur, gallop, rubs, systolic murmur - GI/Abdominal GI/Abdominal exam: Present: normal bowel sounds, soft, no peritoneal signs. Absent: distended, tenderness - Extremities Exam Extremities exam: Present: warm, radial pulses palpable and symmetrical. Absent: calf tenderness, cyanotic, pedal edema - Neurological Exam Neurological exam: Present: CN II-XII intact, oriented X3. Absent: pronater drift, facial droop, speech deficit Additional comments: Patient shows slight left hemiparesis with her strength at 4+/5. Noted limited range of motion to left equal in comparison to right. Right extremities at 5/5 muscle strength. - Skin Skin exam: Present: dry, intact Internal Med - H&P Results - Labs CBC & Chem 7: 07/27/18 04:48 07/27/18 04:48 Labs: Short CBC 07/27/18 Range/Units 04:48 WBC 5.3 (4.3-11.1) K/mcL Hgb 10.4 L (11.5-15.4) g/dL Hct 32.4 L (35.3-44.9) % Plt Count 225 (140-400) K/mcL Neutrophils # 3.2 (1.6-8.9) K/mcL BMP 07/27/18 04:48 Sodium 141 Potassium 3.2 L Chloride 107 Carbon Dioxide 27 BUN 13 Creatinine 0.64 Glucose 123 H Calcium 8.7 Liver Function 07/27/18 Range/Units 04:48 Total Bilirubin 1.2 H (0.3-1.0) mg/dL AST 17 (13-39) Units/L ALT 21 (7-52) Units/L Alkaline Phosphatase 87 (34-104) Units/L Albumin 3.6 (3.5-5.7) g/dL
[2018-07-28 07:14] LABS: INR 1.8; Prothrombin Time 20.3 Seconds (9.4-12.1)
[2018-07-28 07:28] LABS: BUN/Creatinine Ratio 21 (6-26); Blood Urea Nitrogen 14 mg/dL (8-23); Calcium 8.9 mg/dL (8.6-10.3); Carbon Dioxide 24 mEq/L (23-29); Chloride 107 mEq/L (98-107); Glucose 122 mg/dL (70-105); Osmolality,Calculated 290 (280-300); Potassium 3.9 mEq/L (3.5-5.1); Sodium 139 mEq/L (136-145); eGFR For African Americans > 60 (> 60); eGFR For Non-African Americans > 60 (> 60)
[2018-07-28] MEDS: Insulin LISPRO 300 UNITS/3 ML VIAL SQ SCH ×4 (08:00→21:49)
[2018-07-28] MEDS: Aspirin 325 MG TABLET PO SCH (08:42)
[2018-07-28] MEDS: Diltiazem CD (24hr) 180 MG CAPSULE PO SCH (08:42)
[2018-07-28] MEDS: Famotidine 20 MG TABLET PO SCH ×2 (08:42→21:50)
[2018-07-28] MEDS: Cholecalciferol (D-3) 1,000 UNIT (25MCG) TABLET PO SCH (08:42)
[2018-07-28] MEDS: FLUoxetine 20 MG CAPSULE PO SCH (08:43)
[2018-07-28] MEDS: Multivit/Ca/Min/Fe/FA 1 TAB TABLET PO SCH (08:43)
[2018-07-28] MEDS: Ammonium Lactate 30 APPL/225 GM BOTTLE TP SCH ×2 (11:14→21:50)
--- NOTE | 2018-07-28 13:20 | Internal Med Progress Note ---
Date of Encounter: 07/28/18 Time of Encounter: 10:15 - Assessment and plan (1) Weakness Current Visit: Yes Status: Acute Assessment and plan: Patient is participating in therapies and these will continue to return to normal function and activities of daily living. (2) Diabetes Current Visit: Yes Status: Chronic Assessment and plan: Moderately controlled. Will continue current regimen including sliding scale. Qualifiers: Diabetes mellitus type: type 2 Diabetes mellitus remote computer terminal operator insulin use: with custodial use Diabetes mellitus complication status: without complication Qualified Code(s): E11.9 - Type 2 diabetes mellitus without complications; Z79.4 - half-way (current) use of insulin (3) Atrial fibrillation Current Visit: Yes Status: Chronic Assessment and plan: Clinically stable on current regimen. On chronic anticoagulation. As her INR is down to 1.8, will resume Xarelto. Qualifiers: Atrial fibrillation type: chronic Qualified Code(s): I48.2 - Chronic atrial fibrillation (4) Cerebrovascular accident (CVA) Current Visit: Yes Status: Acute Assessment and plan: Stable with no new deficits. 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 Qualifiers: Cardiomyopathy type: unspecified Qualified Code(s): I42.9 - Cardiomyopathy, unspecified (6) Adjustment disorder with depressed mood Current Visit: No Status: Acute Assessment and plan: Clinically stable. (7) Closed left ankle fracture Current Visit: No Status: Acute Assessment and plan: Wearing brace and weightbearing partially with therapy. Qualifiers: Encounter type: subsequent encounter Fracture healing: with routine healing Qualified Code(s): S82.892D - Other fracture of left lower leg, subsequent encounter for closed fracture with routine healing - Subjective Interval history: Patient is without complaint except that she did not sleep well last night. She is feeling generally well. Patient has no complaint of chest discomfort, dyspnea, orthopnea, palpitations, nausea or vomiting, constipation or diarrhea, other changes in bowel habits, difficulty with urination, rash or itching, or other new complaints, except as mentioned above. Review of systems is otherwise negative. I discussed management of patient's care with nursing staff. - Constitutional Vitals: Temp Pulse Resp BP Pulse Ox 97.6 F 97 15 113/57 97 07/28/18 08:32 07/28/18 08:32 07/28/18 08:32 07/28/18 08:32 07/28/18 08:32 Exam: Examination: (Except as mentioned above): General: In no apparent distress. Alert and oriented 3. Nondiaphoretic. Head: Atraumatic and normocephalic. Respiratory: No use of accessory muscles. Lungs are clear throughout. Normal airflow. No chest wall tenderness. Cardiovascular: Irregularly irregular consistent with atrial fibrillation, rate controlled, without murmur appreciated. Abdomen: Bowel sounds are normal. No hepatosplenomegaly mass or tenderness appreciated. Obese and therefore difficult to palpate deeply. Patient is examined upright in chair and this also limits exam. Extremities: No cyanosis clubbing or edema. Skin: Warm and non-diaphoretic with no new lesions noted. Internal Medicine: Result - Labs CBC & Chem 7: 07/27/18 04:48 07/28/18 07:04 Labs: BMP 07/28/18 07:04 Sodium 139 Potassium 3.9 Chloride 107 Carbon Dioxide 24 BUN 14 Creatinine 0.67 Glucose 122 H Calcium 8.9 - ABG Interpretation ABG results: PT/INR, D-dimer PT 20.3 Seconds (9.4-12.1) H D 07/28/18 07:04 Consult Discharge Plan - Plan Referrals: Carmelo Boudreaux MD [Primary Care Provider] -
[2018-07-28] MEDS: *HR* Rivaroxaban 10 MG TABLET PO SCH (21:50)
[2018-07-28] MEDS: Acetaminophen 325 MG TABLET PO PRN (21:51)
[2018-07-29 07:14] LABS: INR 2.6; Prothrombin Time 30.1 Seconds (9.4-12.1)
[2018-07-29] MEDS: Insulin LISPRO 300 UNITS/3 ML VIAL SQ SCH ×4 (08:00→22:02)
[2018-07-29] MEDS: Ammonium Lactate 30 APPL/225 GM BOTTLE TP SCH ×2 (08:40→22:02)
[2018-07-29] MEDS: Multivit/Ca/Min/Fe/FA 1 TAB TABLET PO SCH (08:41)
[2018-07-29] MEDS: Cholecalciferol (D-3) 1,000 UNIT (25MCG) TABLET PO SCH (08:41)
[2018-07-29] MEDS: Famotidine 20 MG TABLET PO SCH (08:41)
[2018-07-29] MEDS: Aspirin 325 MG TABLET PO SCH (08:41)
[2018-07-29] MEDS: FLUoxetine 20 MG CAPSULE PO SCH (08:41)
[2018-07-29] MEDS: Diltiazem CD (24hr) 180 MG CAPSULE PO SCH (08:41)
--- NOTE | 2018-07-29 16:21 | Internal Med Progress Note ---
Date of Encounter: 07/29/18 Time of Encounter: 16:19 - Assessment and plan (1) Weakness Current Visit: Yes Status: Acute Assessment and plan: Patient is participating in therapies and these will continue to return to normal function and activities of daily living. (2) Diabetes Current Visit: Yes Status: Chronic Assessment and plan: We are following with diabetic diet and regimen with which she was transferred. Will continue current regimen including sliding scale. Qualifiers: Diabetes mellitus type: type 2 Diabetes mellitus assisted insulin use: with marine oil terminal superintendent use Diabetes mellitus complication status: without complication Qualified Code(s): E11.9 - Type 2 diabetes mellitus without complications; Z79.4 - marine oil terminal superintendent (current) use of insulin (3) Atrial fibrillation Current Visit: Yes Status: Chronic Assessment and plan: Her INR is again slightly prolonged but will follow on her Xarelto. Qualifiers: Atrial fibrillation type: chronic Qualified Code(s): I48.2 - Chronic atrial fibrillation (4) Cerebrovascular accident (CVA) Current Visit: Yes Status: Acute Assessment and plan: Clinically stable without new deficits. Qualifiers: CVA mechanism: embolism Precerebral and cerebral artery: middle cerebral a rtery Laterality of affected vessel: right Qualified Code(s): I63.411 - Cerebral infarction due to embolism of right middle cerebral artery (5) Cardiomyopathy Current Visit: Yes Status: Chronic Assessment and plan: Clinically stable without signs or symptoms of heart failure. Qualifiers: Cardiomyopathy type: unspecified Qualified Code(s): I42.9 - Cardiomyopathy, unspecified (6) Adjustment disorder with depressed mood Current Visit: No Status: Acute Assessment and plan: She seems to be normal from this standpoint. (7) Closed left ankle fracture Current Visit: No Status: Acute Assessment and plan: Partial weightbearing, as before. Qualifiers: Encounter type: subsequent encounter Fracture healing: with routine healing Qualified Code(s): S82.892D - Other fracture of left lower leg, subsequent encounter for closed fracture with routine healing - Subjective Interval history: Patient states she is feeling well. Her last period yesterday. No new complaints. Examined with her present. Patient has no complaint of chest discomfort, dyspnea, orthopnea, palpitations, nausea or vomiting, constipation or diarrhea, other changes in bowel habits, difficulty with urination, rash or itching, or other new complaints, except as mentioned above. Review of systems is otherwise negative. I discussed management of patient's care with nursing staff. - Constitutional Vitals: Temp Pulse Resp BP Pulse Ox 98.1 F 92 15 133/75 95 07/29/18 08:39 07/29/18 08:39 07/29/18 08:39 07/29/18 08:39 07/29/18 08:39 Exam: Examination: (Except as mentioned above): General: In no apparent distress. Alert and oriented 3. Nondiaphoretic. Head: Atraumatic and normocephalic. Respiratory: No use of accessory muscles. Lungs are clear throughout. Normal airflow. Cardiovascular: Regular rate and rhythm without murmur appreciated. Abdomen: Bowel sounds are normal. No hepatosplenomegaly mass or tenderness appreciated. Obese and therefore difficult to palpate deeply. Patient is examined upright in chair and this also limits exam. Extremities: No cyanosis clubbing or edema. Skin: Warm and non-diaphoretic with no new lesions noted. Internal Medicine: Result - Labs CBC & Chem 7: 07/27/18 04:48 07/28/18 07:04 - ABG Interpretation ABG results: PT/INR, D-dimer PT 30.1 Seconds (9.4-12.1) H 07/29/18 07:05 Consult Discharge Plan - Plan Referrals: Carmelo Boudreaux MD [Primary Care Provider] -
[2018-07-29] MEDS: *HR* Rivaroxaban 10 MG TABLET PO SCH (17:01)
[2018-07-29] MEDS: Acetaminophen 325 MG TABLET PO PRN (22:03)
[2018-07-30 05:47] LABS: Basophils % 0.6 %; Eosinophils # 0.2 K/mcL (0.0-0.6); Eosinophils % 2.7 %; Hematocrit 35.5 % (35.3-44.9); Hemoglobin 11.4 g/dL (11.5-15.4); Immature Granulocytes % 0.2 % (0-4); Lymphocytes # 1.5 K/mcL (0.6-4.6); Lymphocytes % 23.3 %; Mean Corpuscular HGB Conc 32.1 g/dL (31.6-35.5); Mean Corpuscular Hemoglobin 30.7 pg (28.0-33.3); Mean Corpuscular Volume 95.7 fL (83.0-100.0); Mean Platelet Volume 9.4 fL (9.4-12.4); Monocytes # 0.7 K/mcL (0.0-1.3); Monocytes % 10.6 %; Neutrophils # 3.9 K/mcL (1.6-8.9); Platelet Count 256 K/mcL (140-400); Red Blood Count 3.71 M/mcL (3.82-4.97); Red Cell Distribution Width 15.2 % (11.5-14.5); Segmented Neutrophils % 62.6 %; White Blood Count 6.2 K/mcL (4.3-11.1)
[2018-07-30 05:50] LABS: INR 2.8; Prothrombin Time 31.7 Seconds (9.4-12.1)
[2018-07-30 06:01] LABS: Alanine Aminotransferase 25 Units/L (7-52); Albumin 3.8 g/dL (3.5-5.7); Albumin/Globulin Ratio 1.8 (1.1-2.2); Alkaline Phosphatase 91 Units/L (34-104); Aspartate Amino Transferase 21 Units/L (13-39); BUN/Creatinine Ratio 19 (6-26); Blood Urea Nitrogen 13 mg/dL (8-23); Carbon Dioxide 24 mEq/L (23-29); Chloride 106 mEq/L (98-107); Globulin 2.1 g/dL (2.4-3.5); Glucose 126 mg/dL (70-105); Osmolality,Calculated 288 (280-300); Sodium 138 mEq/L (136-145); Total Protein 5.9 g/dL (6.4-8.9); eGFR For African Americans > 60 (> 60); eGFR For Non-African Americans > 60 (> 60)
[2018-07-30] MEDS: Insulin LISPRO 300 UNITS/3 ML VIAL SQ SCH ×4 (07:40→21:09)
[2018-07-30] MEDS: FLUoxetine 20 MG CAPSULE PO SCH (08:27)
[2018-07-30] MEDS: Aspirin 325 MG TABLET PO SCH (08:27)
[2018-07-30] MEDS: Cholecalciferol (D-3) 1,000 UNIT (25MCG) TABLET PO SCH (08:29)
[2018-07-30] MEDS: Diltiazem CD (24hr) 180 MG CAPSULE PO SCH (08:29)
[2018-07-30] MEDS: Multivit/Ca/Min/Fe/FA 1 TAB TABLET PO SCH (08:29)
[2018-07-30] MEDS: Ammonium Lactate 30 APPL/225 GM BOTTLE TP SCH ×2 (08:29→20:43)
[2018-07-30] MEDS: Famotidine 20 MG TABLET PO SCH (08:29)
--- NOTE | 2018-07-30 11:55 | Internal Med Progress Note ---
Date of Encounter: 07/30/18 Time of Encounter: 11:53 - Assessment and plan (1) Weakness Current Visit: Yes Status: Acute Assessment and plan: She will participate with therapy to restore strength and return to activities of daily living. She is obviously impulsive and needs constant cues about safety precautions. This is a fall risk at home and family will need to be instructed on same. 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 Qualifiers: Atrial fibrillation type: chronic Qualified Code(s): I48.2 - Chronic atrial fibrillation (4) Cerebrovascular accident (CVA) Current Visit: Yes Status: Acute Assessment and plan: Stable without new deficits. Qualifiers: CVA mechanism: embolism Precerebral and cerebral artery: middle cerebral artery Laterality of affected vessel: right Qualified Code(s): I63.411 - C erebral infarction due to embolism of right middle cerebral artery (5) Cardiomyopathy Current Visit: Yes Status: Chronic Assessment and plan: No signs of worsening failure. Qualifiers: Cardiomyopathy type: unspecified Qualified Code(s): I42.9 - Cardiomyopathy, unspecified (6) Adjustment disorder with depressed mood Current Visit: No Status: Acute Assessment and plan: This seems stable. (7) Closed left ankle fracture Current Visit: No Status: Acute Assessment and plan: Tolerating brace and using precautions when cued by therapy but as the one site if therapy is not giving her a constant cues. Qualifiers: Encounter type: subsequent encounter Fracture healing: with routine healing Qualified Code(s): S82.892D - Other fracture of left lower leg, subsequent encounter for closed fracture with routine healing - Subjective Interval history: Patient states she is feeling well. She is a little bit sleepy and would like to have a nap. She is participating well, with therapy. Nursing notes that she slid off her bed last night. No injury, head injury or concussion, etc. Bowels are functioning normally. Patient has no complaint of chest discomfort, dyspnea, orthopnea, palpitations, nausea or vomiting, constipation or diarrhea, other changes in bowel habits, difficulty with urination, rash or itching, or other new complaints, except as mentioned above. Review of systems is otherwise negative. I discussed management of patient's care with nursing staff. - Constitutional Vitals: Temp Pulse Resp BP Pulse Ox 97.6 F 77 15 129/79 94 07/30/18 07:13 07/30/18 07:13 07/30/18 07:13 07/30/18 07:13 07/30/18 07:13 Exam: Examination: (Except as mentioned above): General: In no apparent distress. Alert and oriented 3. Nondiaphoretic. Head: Atraumatic and normocephalic. Respiratory: No use of accessory muscles. Lungs are clear throughout. Normal airflow. Cardiovascular:Irregularly irregular consistent with atrial fibrillation, rate controlled, without murmur appreciated. Abdomen: Bowel sounds are normal. No hepatosplenomegaly mass or tenderness appreciated. Obese and therefore difficult to palpate deeply. Patient is examined upright in chair and this also limits exam. Extremities: No cyanosis clubbing or edema. Skin: Warm and non-diaphoretic with no new lesions noted. Internal Medicine: Result - Labs CBC & Chem 7: 07/30/18 05:40 07/30/18 05:40 Labs: Short CBC 07/30/18 Range/Units 05:40 WBC 6.2 (4.3-11.1) K/mcL Hgb 11.4 L (11.5-15.4) g/dL Hct 35.5 (35.3-44.9) % Plt Count 256 (140-400) K/mcL Neutrophils # 3.9 (1.6-8.9) K/mcL BMP 07/30/18 05:40 Sodium 138 Potassium 4.0 Chloride 106 Carbon Dioxide 24 BUN 13 Creatinine 0.68 Glucose 126 H Calcium 9.0 Liver Function 07/30/18 Range/Units 05:40 Total Bilirubin 1.0 (0.3-1.0) mg/dL AST 21 (13-39) Units/L ALT 25 (7-52) Units/L Alkaline Phosphatase 91 (34-104) Units/L Albumin 3.8 (3.5-5.7) g/dL - ABG Interpretation ABG results: PT/INR, D-dimer PT 31.7 Seconds (9.4-12.1) H 07/30/18 05:40 Consult Discharge Plan - Plan Referrals: Carmelo Boudreaux MD [Primary Care Provider] -
[2018-07-30] MEDS: *HR* Rivaroxaban 10 MG TABLET PO SCH (17:46)
[2018-07-30] MEDS: Acetaminophen 325 MG TABLET PO PRN (20:35)
[2018-07-31] MEDS: Insulin LISPRO 300 UNITS/3 ML VIAL SQ SCH ×4 (07:47→20:19)
[2018-07-31] MEDS: Ammonium Lactate 30 APPL/225 GM BOTTLE TP SCH ×2 (08:01→20:30)
[2018-07-31] MEDS: Cholecalciferol (D-3) 1,000 UNIT (25MCG) TABLET PO SCH (08:01)
[2018-07-31] MEDS: FLUoxetine 20 MG CAPSULE PO SCH (08:02)
[2018-07-31] MEDS: Aspirin 325 MG TABLET PO SCH (08:02)
[2018-07-31] MEDS: Diltiazem CD (24hr) 180 MG CAPSULE PO SCH (08:02)
[2018-07-31] MEDS: Famotidine 20 MG TABLET PO SCH (08:02)
[2018-07-31] MEDS: Multivit/Ca/Min/Fe/FA 1 TAB TABLET PO SCH (08:02)
--- NOTE | 2018-07-31 12:09 | Internal Med Progress Note ---
Date of Encounter: 07/31/18 Time of Encounter: 12:07 - Assessment and plan (1) Cerebrovascular accident (CVA) Current Visit: Yes Status: Acute Assessment and plan: No acute issues. Patient continues with physical therapy but reports of poor effort have been received. Patient continues with steady gait. No acute neurological deficits noted on exam. Patient continues with slight left hemiparesis. We will continue with current therapy and continue to give encouragement to participate. 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 Patient's glucose of been well-controlled with most readings less than 200. We will continue with current coverage Qualifiers: Diabetes mellitus type: type 2 Diabetes mellitus bed bug exterminator insulin use: with senior care use Diabetes mellitus complication status: without complication Qualified Code(s): E11.9 - Type 2 diabetes mellitus without complications; Z79.4 - emt intermediate (current) use of insulin (3) Cardiomyopathy Current Visit: Yes Status: Chronic Assessment and plan: No acute issues. Patient denies any chest discomforts or palpitations. Lungs are clear. We will continue with current medications. No reports of dyspnea Qualifiers: Cardiomyopathy type: unspecified Qualified Code(s): I42.9 - Cardiomyopathy, unspecified (4) Atrial fibrillation Current Visit: Yes Status: Chronic Assessment and plan: No acute issues. Patient's heart rate has been well controlled with ventricular rate less than 100. We will continue on current medications Qualifiers: Atrial fibrillation type: chronic Qualified Code(s): I48.2 - Chronic atrial fibrillation - Time Spent With Patient less than 15 minutes - Subjective Interval history: Patient appears relaxed currently denies any discomforts or shortness of breath. States that physical therapy is going well. Therapy staff reports patient with poor compliance and effort - Constitutional Vitals: Temp Pulse Resp BP Pulse Ox 98.1 F 79 16 141/82 95 07/31/18 07:35 07/31/18 07:35 07/31/18 07:35 07/31/18 07:35 07/31/18 07:35 General appearance: Present: A&O X 3, pleasant - Head Head exam: Present: atraumatic, normocephalic - Eye Eye exam: Present: PERRL, conjuntiva pink, sclera anicteric Pupils: Present: PERRL - Neck Neck exam general surgery: Present: supple, trachea midline. Absent: lymphadenopathy - Respiratory Respiratory exam: Present: CTAB. Absent: accessory muscle use, rales, rhonchi, wheezes - Cardiovascular Cardiovascular exam: Present: RRR, +S1, +S2. Absent: diastolic murmur, gallop, rubs, systolic murmur - GI/Abdominal GI/Abdominal exam: Present: normal bowel sounds, soft, no peritoneal signs. Absent: distended, tenderness - Extremities Exam Extremities exam: Present: warm, radial pulses palpable and symmetrical. Absent: calf tenderness, cyanotic, pedal edema - Neurological Exam Neurological exam: Present: CN II-XII intact, oriented X3. Absent: pronater drift, facial droop, speech deficit Additional comments: Patient with minimal left hemiparesis with left extremities have 4+/5 and right extremities at 5/5. - Skin Skin exam: Present: dry, intact Internal Medicine: Result - Labs CBC & Chem 7: 07/30/18 05:40 07/30/18 05:40 - ABG Interpretation ABG results: PT/INR, D-dimer PT 31.7 Seconds (9.4-12.1) H 07/30/18 05:40 Consult Discharge Plan - Plan Referrals: Carmelo Boudreaux MD [Primary Care Provider] -
[2018-07-31] MEDS: *HR* Rivaroxaban 10 MG TABLET PO SCH (16:57)
[2018-08-01] MEDS: Insulin LISPRO 300 UNITS/3 ML VIAL SQ SCH ×4 (07:37→22:11)
[2018-08-01] MEDS: Ammonium Lactate 30 APPL/225 GM BOTTLE TP SCH ×2 (08:41→22:11)
[2018-08-01] MEDS: Diltiazem CD (24hr) 180 MG CAPSULE PO SCH (08:42)
[2018-08-01] MEDS: FLUoxetine 20 MG CAPSULE PO SCH (08:42)
[2018-08-01] MEDS: Famotidine 20 MG TABLET PO SCH (08:42)
[2018-08-01] MEDS: Aspirin 325 MG TABLET PO SCH (08:42)
[2018-08-01] MEDS: Cholecalciferol (D-3) 1,000 UNIT (25MCG) TABLET PO SCH (08:42)
[2018-08-01] MEDS: Multivit/Ca/Min/Fe/FA 1 TAB TABLET PO SCH (08:42)
--- NOTE | 2018-08-01 10:17 | Internal Med Progress Note ---
Date of Encounter: 08/01/18 Time of Encounter: 10:15 - Assessment and plan (1) Cerebrovascular accident (CVA) Current Visit: Yes Status: Acute Assessment and plan: No acute issues. Patient continues with physical therapy but reports of poor effort have been received. Patient continues with steady gait. No acute neurological deficits noted on exam. Patient continues with slight left hemiparesis. We will continue with current therapy and continue to give encouragement to participate. Possible discharge at the end of this week. 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 Patient's glucose on fingersticks has remained well-controlled with most readings less than 150. We will continue with current coverage. Qualifiers: Diabetes mellitus type: type 2 Diabetes mellitus jail insulin use: with buttermaker use Diabetes mellitus complication status: without complication Qualified Code(s): E11.9 - Type 2 diabetes mellitus without complications; Z79.4 - long term (current) use of insulin (3) Cardiomyopathy Current Visit: Yes Status: Chronic Assessment and plan: No acute issues. Patient denies any chest discomforts or palpitations. Lungs are clear. We will continue with current medications. No reports of dyspnea Qualifiers: Cardiomyopathy type: unspecified Qualified Code(s): I42.9 - Cardiomyopathy, unspecified (4) Atrial fibrillation Current Visit: Yes Status: Chronic Assessment and plan: No acute issues. Patient's heart rate has been well controlled with ventricular rate less than 100. We will continue on current medications Qualifiers: Atrial fibrillation type: chronic Qualified Code(s): I48.2 - Chronic atrial fibrillation - Time Spent With Patient less than 15 minutes - Subjective Interval history: Patient appears relaxed currently denies any discomforts or shortness of breath. States that physical therapy is going well. Therapy staff reports patient with poor compliance and effort - Constitutional Vitals: Temp Pulse Resp BP Pulse Ox 98.5 F 83 14 112/72 94 07/31/18 19:51 07/31/18 19:51 07/31/18 19:51 07/31/18 19:51 07/31/18 19:51 General appearance: Present: A&O X 3, pleasant - Head Head exam: Present: atraumatic, normocephalic - Eye Eye exam: Present: PERRL, conjuntiva pink, sclera anicteric Pupils: Present: PERRL - Neck Neck exam general surgery: Present: supple, trachea midline. Absent: lymphadenopathy - Respiratory Respiratory exam: Present: CTAB. Absent: accessory muscle use, rales, rhonchi, wheezes - Cardiovascular Cardiovascular exam: Present: RRR, +S1, +S2. Absent: diastolic murmur, gallop, rubs, systolic murmur - GI/Abdominal GI/Abdominal exam: Present: normal bowel sounds, soft, no peritoneal signs. Absent: distended, tenderness - Extremities Exam Extremities exam: Present: warm, radial pulses palpable and symmetrical. Absent: calf tenderness, cyanotic, pedal edema Additional comments: Patient continues with slight left ankle weakness, requiring a brace - Neurological Exam Neurological exam: Present: CN II-XII intact, oriented X3. Absent: pronater drift, facial droop, speech deficit Additional comments: Patient continues to have slight left hemiparesis with a 4+/5 muscle strength and right extremities at 5/5 - Skin Skin exam: Present: dry, intact Internal Medicine: Result - Labs CBC & Chem 7: 07/30/18 05:40 07/30/18 05:40 - ABG Interpretation ABG results: PT/INR, D-dimer PT 31.7 Seconds (9.4-12.1) H 07/30/18 05:40 Consult Discharge Plan - Plan Referrals: Carmelo Boudreaux MD [Primary Care Provider] -
--- NOTE | 2018-08-01 15:48 | Psychological Evaluation ---
Date of Encounter: 08/01/18 Time of Encounter: 10:30 History of Present Illness History of present illness: Ms. Guerra is a 77 year old female readmission to this facility for further rehabilitation due to generalized weakness and a recent history of unsteady gait, likely related to her left hemiparesis, which is a residual of her CVA. She has had a recent history of multiple falls over the past several weeks. Past Medical History - Psychiatric History Additional Psychiatric History: Pt was seen here , her last rehab admission. Known to this provider. Home Medications and Allergies Diltiazem HCl [Diltiazem 24Hr Cd] 360 mg PO DAILY 04/05/15 [History] FLUoxetine HCl [Prozac] 40 mg PO DAILY #30 capsule 06/21/18 [Rx] Famotidine [Pepcid] 20 mg PO BID #60 tablet 06/21/18 [Rx] Metoprolol [Lopressor] 25 mg PO BID #60 tablet 06/21/18 [Rx] Acetaminophen [Tylenol Arthritis] 650 mg PO Q6H PRN 07/21/18 [History] Aspirin 325 mg PO DAILY 07/21/18 [History] Rivaroxaban [Xarelto] 20 mg PO HS 07/21/18 [History] Ammonium Lactate 1 appl TP BID 07/23/18 [History] Atorvastatin Calcium 80 mg PO HS 07/23/18 [History] Cholecalciferol (Vitamin D3) [Vitamin D3] 2,000 units PO DAILY 07/23/18 [History] Vit C/E/Zn/Coppr/Lutein/Zeaxan [Preservision Areds 2 Softgel] 2 cap PO DAILY 07/23/18 [History] Allergy/AdvReac Type Severity Reaction Status Date / Time hydrocodone Allergy See Verified 07/23/18 13:42 Comments metformin AdvReac Diarrhea, Verified 07/23/18 13:42 Gastrointestinal Upset oxycodone [From Percocet] AdvReac Nausea Verified 07/21/18 23:07 Social History - Social History Social History: Resides with and daughter, granddaughter involved in her life. She feels she is a burden and her is tired and worn out caring for her. - Alcohol Use Alcohol Use: none - Drug Use Drug Use: none Cognitive/Emotional Assessment - Cognitive Ability Attention Span Ability: Capable of Focused Attention, Capable of Sustained Attention Language Function Ability: No Deficits Noted Verbal Communication Ability: Conversational Style Problem Solving Ability: Able To Solve Simple Problems Safety Awareness: Situational Awareness Level of Alertness: Alert Memory Description: Recent Intact Orientation: Person, Place, Time Ability to Follow Directions: Needs Directions Repeated Speech Pattern: Normal rate, Normal rhythm, Appropriate Thought Process: Linear Calculations: Able to spell WORLD backw Additional Findings: She is "stubborn" and impulsive. She also does not like to ask for help thus does things on own and falls. - Emotional Status Mood Description: Depressed Affect Description: Tearful Coping Ability: Unsure about ability to cope Additional Findings: Overwhelmed and unhappy with dependency on others. Feels burden. She acknowledged not listening and we discussed need to follow directions and strategies presented. Assessment & Plan - Prognosis Prognosis: Good - Treatment Plan Treatment Plan/Recommendations: Develop and train coping strategies to increase independence and elevate mood. Referral to psychiatry for medication eval for mood.Establish goals that sre meaningful. Treatment Frequency: 2X/mo once DC and weekly while here Next Session Date: 08/08/18 Procedures - Intervention Interventions: Cognitive/Behavioral Therapy - Modality Modality: Psychotherapy 30 minutes - Participants Therapy Participant: Patient - Session Time Session Start Time: 10:30 Session Stop Time: 11:00
[2018-08-01] MEDS: *HR* Rivaroxaban 10 MG TABLET PO SCH (17:20)
[2018-08-02] MEDS: Ammonium Lactate 30 APPL/225 GM BOTTLE TP SCH ×2 (08:10→21:38)
[2018-08-02] MEDS: Insulin LISPRO 300 UNITS/3 ML VIAL SQ SCH ×4 (08:10→21:32)
[2018-08-02] MEDS: Aspirin 325 MG TABLET PO SCH (08:14)
[2018-08-02] MEDS: Cholecalciferol (D-3) 1,000 UNIT (25MCG) TABLET PO SCH (08:14)
[2018-08-02] MEDS: Multivit/Ca/Min/Fe/FA 1 TAB TABLET PO SCH (08:14)
[2018-08-02] MEDS: FLUoxetine 20 MG CAPSULE PO SCH (08:14)
[2018-08-02] MEDS: Famotidine 20 MG TABLET PO SCH (08:14)
[2018-08-02] MEDS: Diltiazem CD (24hr) 180 MG CAPSULE PO SCH (08:14)
--- NOTE | 2018-08-02 10:36 | Internal Med Progress Note ---
Date of Encounter: 08/02/18 Time of Encounter: 10:34 - Assessment and plan (1) Cerebrovascular accident (CVA) Current Visit: Yes Status: Acute Assessment and plan: No acute issues. Patient continues with physical therapy but reports of poor effort have been received. Patient continues with steady gait. No acute neurological deficits noted on exam. Patient continues with slight left hemiparesis. We will continue with current therapy and continue to give encouragement to participate. Possible discharge at the end of this week. 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 Patient's glucose on fingersticks has remained well-controlled with most readings less than 150. We will continue with current coverage. 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 Patient denies any chest discomforts or palpitations. Lungs are clear. We will continue with current medications. No reports of dyspnea Qualifiers: Cardiomyopathy type: unspecified Qualified Code(s): I42.9 - Cardiomyopathy, unspecified (4) Atrial fibrillation Current Visit: Yes Status: Chronic Assessment and plan: No acute issues. Patient's heart rate has been well controlled with ventricular rate less than 100. We will continue on current medications Qualifiers: Atrial fibrillation type: chronic Qualified Code(s): I48.2 - Chronic atrial fibrillation (5) Adjustment disorder with depressed mood Current Visit: Yes Status: Chronic Assessment and plan: Patient with a history of depression. Due to patient's poor compliance, she has been followed by psychology while at this facility. Recommendations were psychiatry follow-up as an outpatient after discharge. Social service is currently working on a outpatient referral - Time Spent With Patient less than 15 minutes - Subjective Interval history: Patient appears relaxed currently denies any discomforts or shortness of breath. States that physical therapy is going well. Therapy staff reports patient with poor compliance and effort. Patient being prepared for possible discharge tomorrow and we will continue her therapy as an outpatient. Patient also been recommended for follow-up with psychiatry due to her history of depression. relocation services specialist currently is working on a referral as an outpatient - Constitutional Vitals: Temp Pulse Resp BP Pulse Ox 98.6 F 77 16 108/67 95 08/02/18 07:28 08/02/18 07:28 08/02/18 07:28 08/02/18 07:28 08/02/18 07:28 General appearance: Present: A&O X 3, pleasant - Head Head exam: Present: atraumatic, normocephalic - Eye Eye exam: Present: PERRL, conjuntiva pink, sclera anicteric Pupils: Present: PERRL - Neck Neck exam general surgery: Present: supple, trachea midline. Absent: lymphadenopathy - Respiratory Respiratory exam: Present: CTAB. Absent: accessory muscle use, rales, rhonchi, wheezes - Cardiovascular Cardiovascular exam: Present: RRR, +S1, +S2. Absent: diastolic murmur, gallop, rubs, systolic murmur - GI/Abdominal GI/Abdominal exam: Present: normal bowel sounds, soft, no peritoneal signs. Absent: distended, tenderness - Extremities Exam Extremities exam: Present: warm, radial pulses palpable and symmetrical. Absent: calf tenderness, cyanotic, pedal edema - Neurological Exam Neurological exam: Present: CN II-XII intact, oriented X3. Absent: pronater drift, facial droop, speech deficit Additional comments: Patient continues with slight left hemiparesis with left extremities at 4+/5 and right extremities at 5/5 muscle strength. Patient continues with unsteady gait - Skin Skin exam: Present: dry, intact Internal Medicine: Result - Labs CBC & Chem 7: 07/30/18 05:40 07/30/18 05:40 - ABG Interpretation ABG results: PT/INR, D-dimer PT 31.7 Seconds (9.4-12.1) H 07/30/18 05:40 Consult Discharge Plan - Plan Referrals: Carmelo Boudreaux MD [Primary Care Provider] -
[2018-08-02] MEDS: *HR* Rivaroxaban 10 MG TABLET PO SCH (18:17)
[2018-08-02] MEDS: Acetaminophen 325 MG TABLET PO PRN (21:37)
[2018-08-03 07:29] VITALS: BP 118/61
[2018-08-03] MEDS: Insulin LISPRO 300 UNITS/3 ML VIAL SQ SCH (07:50)
[2018-08-03] MEDS: Ammonium Lactate 30 APPL/225 GM BOTTLE TP SCH (07:50)
[2018-08-03] MEDS: FLUoxetine 20 MG CAPSULE PO SCH (07:51)
[2018-08-03] MEDS: Multivit/Ca/Min/Fe/FA 1 TAB TABLET PO SCH (07:51)
[2018-08-03] MEDS: Cholecalciferol (D-3) 1,000 UNIT (25MCG) TABLET PO SCH (07:51)
[2018-08-03] MEDS: Famotidine 20 MG TABLET PO SCH (07:52)
[2018-08-03] MEDS: Diltiazem CD (24hr) 180 MG CAPSULE PO SCH (07:52)
[2018-08-03] MEDS: Aspirin 325 MG TABLET PO SCH (07:52)
--- NOTE | 2018-08-03 11:12 | Discharge Summary ---
Orders not resulted at time of discharge: Pending orders 08/06/18 04:00 CMP [Comprehensive Metabolic Panel] MO Complete Blood Count [HEME] MO Date of Encounter: 08/03/18 Time of Encounter: 11:10 - Discharge Diagnosis (1) Cerebrovascular accident (CVA) Priority: Primary Status: Acute Comments: Patient with history of recent CVA resulting in slight left hemiparesis. Patient's left extremities remain at 4+/5 and right extremities at 5/5. Patient continues to have difficulty with an unsteady gait and has experienced multiple falls at home. Patient has progressed well with physical therapy but continues to require a walker for balance. Patient will continue her therapy as an outpatient here at [facility]. Patient is to follow-up with her PCP and neurology after discharge Qualifiers: CVA mechanism: embolism Precerebral and cerebral artery: middle cerebral artery Laterality of affected vessel: right Qualified Code(s): I63.411 - Cerebral infarction due to embolism of right middle cerebral artery (2) Diabetes Priority: Secondary Status: Chronic Comments: No acute issues during her stay of facility. Patient's glucose was well- controlled with most readings less than 200. Patient will continue on current medications after discharge and follow-up with PCP for further management Qualifiers: Diabetes mellitus type: type 2 Diabetes mellitus exterminator insulin use: with intermediate use Diabetes mellitus complication status: without complication Qualified Code(s): E11.9 - Type 2 diabetes mellitus without complications; Z79.4 - assisted (current) use of insulin (3) Cardiomyopathy Priority: Secondary Status: Chronic Comments: No acute issues during her stay. Patient's lungs remain clear and she denies any dyspnea. Patient denies any chest discomfort or palpitations. She will continue on her current medications after discharge and follow-up with PCP and cardiology Qualifiers: Cardiomyopathy type: unspecified Qualified Code(s): I42.9 - Cardiomyopathy, unspecified (4) Atrial fibrillation Priority: Secondary Status: Chronic Comments: No issues during her stay of facility. Patient's ventricular rate has been well controlled less than 100. Vital signs are stable. We will continue on current medications after discharge and follow-up with PCP and cardiology Qualifiers: Atrial fibrillation type: chronic Qualified Code(s): I48.2 - Chronic atrial fibrillation (5) Adjustment disorder with depressed mood Priority: Secondary Status: Chronic Comments: Patient continues to have vaginal effort during her therapy, but has dissipated and improved with her bowels. She will continue therapy as an outpatient. Patient interacted well with staff in no behavior issues reported. Patient to continue follow-up with PCP. Arrangements rehabilitation made for outpatient follow-up with psychiatry as patient has a history of depression and will need management of her medications Hospital course: Ms Guerra is a 77 year old, who presented to the ER at [facility] about two week ago with right should pain, dizziness and vomiting. Stated that she was sitting in a chair when she suddenly had dizziness, right should pain and an episode of vomiting. She had a similar episode the day before that resolved on its own. She has a significant history of resent stroke as well as atrial fibrillation currently on xarelto. She was also seen in the ER about 10 days prior to that presentation for a fall requiring a stable to be placed for a head wound. Patient reportedly has been living at home and is reported that she has had frequent falls over the past several weeks and remains unsteady with her gait, mostly due to her left hemiparesis from previous CVA. Patient shows minimal weakness to her left leg, but states that she has some difficulty picking up her left foot, which is also where she experienced a fracture during her initial admission for CVA. Patient was evaluated for possible cardiac syndrome due to complaints of right shoulder pain and nausea while at [facility]. Cardiac catheter was pe rformed which showed no significant disease. Patient was discharged and transferred to this facility for further rehabilitation due to her continued weakness and unsteady gait. Patient currently denies any discomforts or shortness of breath. Patient has dissipated in therapy and appears to have improved with her unsteady gait but continues to require some assistance and the use of a walker. Remains a fall risk and will continue her therapy as an outpatient. At [facility]. Patient is continue on current medications and follow-up with her PCP and neurology Discharge discussed with: patient Time spent discussing smoking cessation with patient: 3 to 10 minutes - Time Spent with Patient Total time spent providing and/or coordinating discharge services: Time spent: Less than 30 minutes - Discharge Medications Prescriptions: No Action Diltiazem HCl [Diltiazem 24Hr Cd] 360 mg PO DAILY Aspirin 325 mg PO DAILY Rivaroxaban [Xarelto] 20 mg PO HS Acetaminophen [Tylenol Arthritis] 650 mg PO Q6H PRN PRN Reason: Pain Ammonium Lactate 1 appl TP BID Atorvastatin Calcium 80 mg PO HS Cholecalciferol (Vitamin D3) [Vitamin D3] 2,000 units PO DAILY Vit C/E/Zn/Coppr/Lutein/Zeaxan [Preservision Areds 2 Softgel] 2 cap PO DAILY Metoprolol [Lopressor] 25 mg PO BID #60 tablet Famotidine [Pepcid] 20 mg PO BID #60 tablet FLUoxetine HCl [Prozac] 40 mg PO DAILY #30 capsule Home Medications: Diltiazem HCl [Diltiazem 24Hr Cd] 360 mg PO DAILY 04/05/15 [History] FLUoxetine HCl [Prozac] 40 mg PO DAILY #30 capsule 06/21/18 [Rx] Famotidine [Pepcid] 20 mg PO BID #60 tablet 06/21/18 [Rx] Metoprolol [Lopressor] 25 mg PO BID #60 tablet 06/21/18 [Rx] Acetaminophen [Tylenol Arthritis] 650 mg PO Q6H PRN 07/21/18 [History] Aspirin 325 mg PO DAILY 07/21/18 [History] Rivaroxaban [Xarelto] 20 mg PO HS 07/21/18 [History] Ammonium Lactate 1 appl TP BID 07/23/18 [History] Atorvastatin Calcium 80 mg PO HS 07/23/18 [History] Cholecalciferol (Vitamin D3) [Vitamin D3] 2,000 units PO DAILY 07/23/18 [History] Vit C/E/Zn/Coppr/Lutein/Zeaxan [Preservision Areds 2 Softgel] 2 cap PO DAILY 07/23/18 [History] Allergies/Adverse Reactions: Allergy/AdvReac Type Severity Reaction Status Date / Time hydrocodone Allergy See Verified 07/23/18 13:42 Comments metformin AdvReac Diarrhea, Verified 07/23/18 13:42 Gastrointestinal Upset oxycodone [From Percocet] AdvReac Nausea Verified 07/21/18 23:07 Date of admission: 07/26/18 15:12 Primary care physician: Carmelo Boudreaux MD Consults: 07/26/18 16:13 Consult to Occupational Therapy [CONS] Routine Comment: Evaluate, develop and implement POC Reason for Consult: Deconditioning Does patient have active BEDREST order?: No Is patient medically & hemodynamically stable?: Yes Consult to Physical Therapy [CONS] Routine Comment: Evaluate, develop and implement POC Reason for Consult: Deconditioning Does patient have active BEDREST order?: No Is patient medically & hemodynamically stable?: Yes Consult to Recreational Therapy [CONS] Routine Comment: Evaluate, develop and implement POC Consult to Medical Csr [CONS] Routine Reason for SW Consult: Deconditioning 07/30/18 16:30 Consult to Psychology [CONS] Routine Consulting Provider: Calli Bustamante Reason for Consult: Possible depression; adjustment disorder Call Completed: No 08/01/18 13:04 Consult to Psychiatry [CONS] Routine Consulting Provider: Psychiatry Kiesha Reason consult: Medication recommendation Other reason and/or additional details: Hx of depression. Time Notified: 13:06 Call Completed: No Discharging clinician: Rock Turpin - Constitutional Vitals: Temp Pulse Resp BP Pulse Ox 98.8 F 94 16 118/61 93 08/03/18 07:00 08/03/18 07:00 08/03/18 07:00 08/03/18 07:00 08/03/18 07:00 General appearance: Present: A&O X 3, pleasant - Head Head exam: Present: atraumatic, normocephalic - Eye Eye exam: Present: PERRL, conjuntiva pink, sclera anicteric Pupils: Present: PERRL - Neck Neck exam general surgery: Present: supple, trachea midline. Absent: lymphadenopathy - Respiratory Respiratory exam: Present: CTAB. Absent: accessory muscle use, rales, rhonchi, wheezes - Cardiovascular Cardiovascular exam: Present: RRR, +S1, +S2. Absent: diastolic murmur, gallop, rubs, systolic murmur - GI/Abdominal GI/Abdominal exam: Present: normal bowel sounds, soft, no peritoneal signs. Absent: distended, tenderness - Extremities Exam Extremities exam: Present: warm, radial pulses palpable and symmetrical. Absent: calf tenderness, cyanotic, pedal edema - Neurological Exam Neurological exam: Present: CN II-XII intact, oriented X3. Absent: pronater drift, facial droop, speech deficit Additional comments: Patient continues with slight left hemiparesis with muscle strength is 4+/5 and right extremities at 5/5. Patient continues to have difficulty with balance and remains a unsteady gait and risk for falls - Skin Skin exam: Present: dry, intact - Patient Status Disposition: Home, Self-Care Condition: Fair Functional capacity at discharge: uses cane/walker Overall status at discharge: patient is progressing back to baseline - Discharge Instructions Follow Up With: Carmelo Boudreaux MD [Primary Care Provider] - - Diet and Activity Activity: ambulate only with your walker, as per physical therapy, increase activity as tolerated Diet: diabetic diet, low fat, low cholesterol, low salt diet
== END 2018-08-03 13:10 | disposition home or self-care (01) | DRG 57 ==
LOC: INPGRE 15:12

== ENCOUNTER 2019-03-05 01:37 | Observation (INO) ==
[2019-03-05] MEDS ORDERED: Dextrose Gel 15 GM/37.5 ML TUBE PO PRN ×2 (05:25)
[2019-03-05] MEDS ORDERED: *HR* Dextrose 50 % in Water (Syg) 50 ML SYRINGE IVP PRN (05:25)
[2019-03-05] MEDS ORDERED: D5% in Water 1,000 ML IVC PRN (05:25)
[2019-03-05] MEDS ORDERED: Acetaminophen 325 MG TABLET PO PRN (05:26)
[2019-03-05] MEDS: *HR* Heparin 5,000 UNIT/ML VIAL SQ SCH ×2 (05:55→17:23)
[2019-03-05] MEDS: Insulin LISPRO 300 UNITS/3 ML VIAL SQ SCH ×3 (09:00→17:26)
[2019-03-05 09:21] LABS: Hematocrit 38.8 % (35.3-44.9); Mean Corpuscular HGB Conc 32.2 g/dL (31.6-35.5); Mean Corpuscular Hemoglobin 30.1 pg (28.0-33.3); Mean Corpuscular Volume 93.5 fL (83.0-100.0); Mean Platelet Volume 9.6 fL (9.4-12.4); Platelet Count 209 K/mcL (140-400); Red Blood Count 4.15 M/mcL (3.82-4.97); Red Cell Distribution Width 19.4 % (11.5-14.5); White Blood Count 9.3 K/mcL (4.3-11.1)
[2019-03-05 09:24] LABS: Hemoglobin 12.5 g/dL (11.5-15.4)
[2019-03-05 09:37] LABS: Alanine Aminotransferase 51 Units/L (7-52); Albumin 3.8 g/dL (3.5-5.7); Albumin/Globulin Ratio 1.7 (1.1-2.2); Alkaline Phosphatase 118 Units/L (34-104); Aspartate Amino Transferase 33 Units/L (13-39); BUN/Creatinine Ratio 15 (6-26); Bilirubin,Total 1.1 mg/dL (0.3-1.0); Blood Urea Nitrogen 13 mg/dL (8-23); Calcium 9.2 mg/dL (8.6-10.3); Carbon Dioxide 27 mEq/L (23-29); Chloride 105 mEq/L (98-107); Globulin 2.3 g/dL (2.4-3.5); Glucose 225 mg/dL (70-105); Magnesium 1.9 mg/dL (1.6-2.6); Osmolality,Calculated 301 (280-300); Potassium 4.2 mEq/L (3.5-5.1); Sodium 142 mEq/L (136-145); Total Protein 6.1 g/dL (6.4-8.9); eGFR For African Americans > 60 (> 60); eGFR For Non-African Americans > 60 (> 60)
[2019-03-05] MEDS ORDERED: Furosemide 20 MG TABLET PO PRN (12:01)
[2019-03-05] MEDS: Famotidine 20 MG TABLET PO SCH ×2 (12:58→20:47)
[2019-03-05] MEDS: FLUoxetine 20 MG CAPSULE PO SCH (12:58)
[2019-03-05] MEDS: DilTIAZem CD (24hr) 240 MG CAP.ER.24H PO SCH (12:58)
[2019-03-05] MEDS: levETIRAcetam 250 MG TABLET PO SCH ×2 (12:59→20:48)
[2019-03-05] MEDS: Acetaminophen 325 MG TABLET PO PRN ×2 (17:22→21:21)
[2019-03-05] MEDS: DICLOFENAC SODIUM 1% TP SCH (20:48)
[2019-03-05] MEDS ORDERED: Insulin LISPRO 300 UNITS/3 ML VIAL SQ SCH (21:00)
[2019-03-06] MEDS: Acetaminophen 325 MG TABLET PO PRN (04:46)
[2019-03-06] MEDS: *HR* Heparin 5,000 UNIT/ML VIAL SQ SCH (06:03)
[2019-03-06] MEDS: Insulin LISPRO 300 UNITS/3 ML VIAL SQ SCH (08:21)
[2019-03-06 08:35] VITALS: BP 128/81
[2019-03-06] MEDS: DilTIAZem CD (24hr) 240 MG CAP.ER.24H PO SCH (08:43)
[2019-03-06] MEDS: FLUoxetine 20 MG CAPSULE PO SCH (08:43)
[2019-03-06] MEDS: levETIRAcetam 250 MG TABLET PO SCH (08:43)
[2019-03-06] MEDS: Famotidine 20 MG TABLET PO SCH (08:43)
[2019-03-06] MEDS: DICLOFENAC SODIUM 1% TP SCH (08:44)
== END 2019-03-06 12:04 | disposition home or self-care (01) ==
LOC: INPGRE
PROVIDERS: ADMIT Family Medicine; ATTEND Family Medicine